=== PATIENT | female | born 1975 | race Hispanic/Latino ===

== ENCOUNTER 2017-11-20 21:27 | Inpatient (IN) | payer MEDICAID ==
[~2017-11-20] VITALS: Ht 162.6 cm; Wt 87.7 kg
[~2017-11-20 21:27] MED LIST: ASCO10007 PO; CEFU500T67 PO; CYAN10009 PO; DIPH1TAB24 PO; DULO20CA17 PO; EXEN5PEN2 SQ; FURO20TA4 PO; GABA-531 PO; INSU100I3 SQ; INSU3INS3 SQ; LISI-617 PO; OMEP40CA37 PO; ONDA4TAB7 PO; PRAV10TA39 PO
[2017-11-20 22:31] LABS: HEMATOCRIT 26.9 % (36-48); MEAN CORPUSCULAR HEMOGLOBIN 28.7 pg (27.0-33.0); MEAN CORPUSCULAR HGB CONC 32.6 g/dL (32.0-36.0); PLATELET COUNT (AUTO) 334 K/uL (130-400); RED BLOOD CELL COUNT(AUTO) 3.06 MIL/uL (4.00-5.50); RED CELL DISTRIBUTION WIDTH 14.6 % (11.0-15.5); WHITE BLOOD COUNT (AUTO) 12.8 K/uL (4.8-10.8)
[2017-11-20 22:41] LABS: ALANINE AMINOTRANSFERASE 31 U/L (12-78); ALBUMIN 2.6 g/dL (3.5-5.0); ASPARTATE AMINOTRANSFERASE 15 U/L (10-37); BILIRUBIN,TOTAL 0.3 mg/dL (0.2-1.0); CARBON DIOXIDE 22 mmol/L (21-32); CHLORIDE 101 mmol/L (101-111); CREATINE KINASE MB 2.8 ng/mL (0.5-3.6); CREATINE KINASE, TOTAL 313 U/L (21-232); CREATININE 1.4 mg/dL (0.5-1.5); GLOMERULAR FILTR. RATE CALC 44 mL/min (>60); MYOGLOBIN 181 ng/mL (10-92); POTASSIUM 5.5 mmol/L (3.5-5.1); SODIUM SERUM 134 mmol/L (136-145); TOTAL PROTEIN, SERUM 6.3 g/dL (6.0-8.3); TROPONIN I < 0.04 ng/mL (0.00-0.06); UREA NITROGEN, BLOOD 34 mg/dL (7-18)
[2017-11-20 22:44] LABS: GLUCOSE,RANDOM 430 mg/dL (70-105)
[2017-11-20 22:47] LABS: INR 0.93 (0.85-1.15); PARTIAL THROMBOPLASTIN TIME 24.7 SEC (26.3-35.5); PROTHROMBIN TIME 9.8 SEC (9.6-11.6)
[2017-11-20] MEDS ORDERED: FUROSEMIDE 10 MG/ML 4ML VIAL ONE (22:48)
[2017-11-20] MEDS ORDERED: INSULIN HUMULIN R 100 UNIT/ML 3ML ONE (22:49)
[2017-11-20] MEDS ORDERED: IPRATROPIUM/ALBUTEROL SULFATE 3 ML SOLUTION IH ONE (22:52)
[2017-11-20 22:58] LABS: APPEARANCE,URINE Clear (CLEAR); BILIRUBIN,URINE Negative (NEGATIVE); COLOR,URINE Yellow (YELLOW); GLUCOSE, URINE (UA) >=1000 mg/dL (NEGATIVE); KETONES,URINE Negative (NEGATIVE); LEUKOCYTE ESTERASE ,URINE Negative (NEGATIVE); NITRATE,URINE Negative (NEGATIVE); OCCULT BLOOD,URINE Moderate (NEGATIVE); PH,URINE 5.5 (5.0-8.0); PROTEIN,URINE >=1000 (NEGATIVE); UROBILINOGEN,URINE 0.2 mg/dL (0.2-1.0)
[2017-11-20] MEDS ORDERED: METHYLPREDNISOLONE SOD SUCC 125MG/2ML VIAL ONE (23:07)
[2017-11-20 23:25] LABS: BACTERIA,URINE None Seen /HPF (None Seen); MUCUS,URINE Rare LPF (None Seen); RBC,URINE 0-1 /HPF (0-1); SQUAMOUS EPITHELIAL CELL,UR Moderate /LPF (0-2); WBC,URINE 0-1 /HPF (0-1); YEAST,URINE BUDDING None Seen /HPF (None Seen)
[2017-11-20 23:47] LABS: BAND NEUTROPHILS % (MANUAL) 3 % (0-2); BASOPHILS % (MANUAL) 1 % (0-2); LYMPHOCYTES % (MANUAL) 1 % (22-44); MONOCYTES % (MANUAL) 1 % (2-9); SEGMENTED NEUTROPHILS % 94 % (40-70)
[2017-11-20 23:48] LABS: MAN.DIFF COMMENT-IMPRESSION MANUAL DIFFERENTIAL; PLATELET MORPHOLOGY COMMENT ADEQUATE
[2017-11-21] MEDS ORDERED: LEVOFLOXACIN 500 MG/D5W 100 ML 100 ML ONE (01:01)
[2017-11-21] MEDS ORDERED: IPRATROPIUM/ALBUTEROL SULFATE 3 ML SOLUTION IH ONE ×2 (01:21→09:13)
[2017-11-21 06:35] LABS: HEMATOCRIT 27.4 % (36-48); MEAN CORPUSCULAR HEMOGLOBIN 29.5 pg (27.0-33.0); MEAN CORPUSCULAR HGB CONC 33.3 g/dL (32.0-36.0); MEAN CORPUSCULAR VOLUME 88.6 fL (79-99); PLATELET COUNT (AUTO) 316 K/uL (130-400); RED BLOOD CELL COUNT(AUTO) 3.09 MIL/uL (4.00-5.50); RED CELL DISTRIBUTION WIDTH 14.8 % (11.0-15.5); WHITE BLOOD COUNT (AUTO) 12.5 K/uL (4.8-10.8)
[2017-11-21 06:39] LABS: HEMOGLOBIN A1C 10.7 % (4.0-6.0)
[2017-11-21 06:42] LABS: ALBUMIN 2.7 g/dL (3.5-5.0); BILIRUBIN,TOTAL 0.3 mg/dL (0.2-1.0); CREATININE 1.5 mg/dL (0.5-1.5); POTASSIUM 5.4 mmol/L (3.5-5.1); TOTAL PROTEIN, SERUM 6.5 g/dL (6.0-8.3)
[2017-11-21] MEDS ORDERED: INSULIN HUMULIN R 100 UNIT/ML 3ML ONE ×2 (06:57→12:22)
[2017-11-21 07:01] LABS: % IRON SATURATION 10.5 % (22-44)
[2017-11-21 07:13] LABS: LYMPHOCYTES % (MANUAL) 5 % (22-44); MAN.DIFF COMMENT-IMPRESSION MANUAL DIFFERENTIAL; PLATELET MORPHOLOGY COMMENT ADEQUATE; SEGMENTED NEUTROPHILS % 95 % (40-70)
[2017-11-21 07:23] LABS: B-TYPE NATRIURETIC PEPTIDE 933 pg/mL (0-100)
[2017-11-21] MEDS ORDERED: METHYLPREDNISOLONE SOD SUCC 40MG/ML 1ML ONE (07:54)
[2017-11-21] MEDS ORDERED: FUROSEMIDE 10 MG/ML 2ML VIAL ONE (07:55)
[2017-11-21 11:08] LABS: RETICULOCYTE % (AUTO) 1.08 % (0.42-2.23)
[2017-11-21] MEDS ORDERED: GUAIFENESIN-DM 200/20 MG 10 ML PO PRN (11:30)
[2017-11-21] MEDS ORDERED: ACETAMINOPHEN 325 MG TAB PO PRN ×2 (11:30)
[2017-11-21] MEDS: DOXYCYCLINE 100MG+NS 250ML 250 ML IV SCH ×2 (11:30→23:23)
[2017-11-21] MEDS ORDERED: HYDRALAZINE HCL 20 MG/ML VIAL IV PRN (11:30)
[2017-11-21] MEDS ORDERED: POTASSIUM CHLORIDE 20 MEQ ERTAB PO PRN ×2 (11:30→22:15)
[2017-11-21] MEDS ORDERED: ONDANSETRON HCL 4 MG/2 ML VIAL IV PRN (11:30)
[2017-11-21] MEDS ORDERED: MORPHINE SULFATE 4 MG/1ML SYG IV PRN (11:30)
[2017-11-21] MEDS ORDERED: POTASSIUM CHLORIDE 10% ELIXIR 20 MEQ/15 ML UDCUP PO PRN ×2 (11:30→22:15)
[2017-11-21] MEDS ORDERED: MORPHINE SULFATE 2 MG/ML 1ML SYG IV PRN (11:30)
[2017-11-21] MEDS ORDERED: NITROGLYCERIN 0.4 MG SL TAB SL PRN ×2 (11:30→22:15)
[2017-11-21] MEDS ORDERED: LACTULOSE 20 GM/30 ML UDCUP PO PRN ×2 (11:30→22:15)
[2017-11-21] MEDS ORDERED: ACETAMINOPHEN-CODEINE 300/30MG TAB PO PRN ×2 (11:30)
[2017-11-21] MEDS: INSULIN HUMULIN R 100 UNIT/ML 3ML SQ SCH ×3 (11:30→20:07)
[2017-11-21] MEDS ORDERED: POTASSIUM CHLORIDE 20MEQ/100ML 100 ML IV PRN ×2 (11:30→22:15)
[2017-11-21] MEDS ORDERED: LIDOCAINE HCL-MPF 1% 2ML VIAL IVP PRN (11:30)
[2017-11-21] MEDS: METHYLPREDNISOLONE SOD SUCC 125MG/2ML VIAL IV SCH ×2 (11:30→20:06)
[2017-11-21] MEDS ORDERED: MAG HYDROX/AL HYDROX/SIMETH ES 30 ML SUSP UDCUP PO PRN (11:30)
[2017-11-21 15:00] VITALS: BP 136/82
[2017-11-21] MEDS ORDERED: COMPOUND IV MISC 1 EACH IVSOLN MISC PRN (15:00)
[2017-11-21] MEDS ORDERED: INSULIN GLARGINE 100 UNITS/ML 10 ML VIAL SQ SCH ×2 (17:00→21:00)
[2017-11-21] MEDS ORDERED: FURO20TA4 PO (17:06)
[2017-11-21] MEDS ORDERED: FURO40TA5 PO (17:06)
[2017-11-21] MEDS: IPRATROPIUM/ALBUTEROL SULFATE 3 ML SOLUTION IH SCH ×2 (19:30→22:23)
[2017-11-21 20:00] VITALS: BP 120/77
[2017-11-21] MEDS: FUROSEMIDE 10 MG/ML 2ML VIAL IV SCH (20:06)
[2017-11-21] MEDS: GABAPENTIN 300 MG CAPSULE PO SCH (20:07)
[2017-11-21] MEDS ORDERED: INSULIN GLARGINE HUM REC ANLOG 20 UNIT SQ SCH (21:00)
[2017-11-21] MEDS ORDERED: [UNRECOGNIZED DRUG - OTHER] SQ SCH (21:00)
[2017-11-21] MEDS ORDERED: FAMOTIDINE/PF 20 MG/2 ML VIAL IV SCH (21:00)
[2017-11-21] MEDS ORDERED: DiphenhydrAMINE HCL 50 MG/ML VIAL IVP PRN (22:15)
[2017-11-21] MEDS ORDERED: CLONIDINE HCL 0.1 MG TABLET PO PRN (22:15)
[2017-11-21] MEDS ORDERED: LIDOCAINE HCL-MPF 1% 2ML VIAL IJ PRN (22:15)
[2017-11-21] MEDS ORDERED: ONDANSETRON HCL 4 MG/2 ML VIAL IVP PRN (22:15)
[2017-11-21] MEDS ORDERED: GUAIFENESIN SUGAR-FREE 100 MG/5 ML UDCUP PO PRN (22:15)
[2017-11-21] MEDS ORDERED: GLUCAGON 1MG KIT 1 MG ML IM PRN (22:15)
[2017-11-21] MEDS ORDERED: DEXTROSE 50%-WATER 50 ML DISP.SYRIN IV PRN (22:15)
[2017-11-21 23:36] VITALS: BP 138/79
[2017-11-22] MEDS: LEVOFLOXACIN 500 MG/D5W 100 ML 100 ML IV SCH (01:03)
[2017-11-22] MEDS: IPRATROPIUM/ALBUTEROL SULFATE 3 ML SOLUTION IH SCH ×6 (01:57→21:45)
[2017-11-22] MEDS: METHYLPREDNISOLONE SOD SUCC 125MG/2ML VIAL IV SCH ×3 (03:23→19:33)
[2017-11-22 04:00] VITALS: BP 154/90
[2017-11-22 04:30] LABS: HEMATOCRIT 24.5 % (36-48); MEAN CORPUSCULAR HEMOGLOBIN 28.4 pg (27.0-33.0); MEAN CORPUSCULAR HGB CONC 32.4 g/dL (32.0-36.0); MEAN CORPUSCULAR VOLUME 87.7 fL (79-99); PLATELET COUNT (AUTO) 311 K/uL (130-400); RED BLOOD CELL COUNT(AUTO) 2.79 MIL/uL (4.00-5.50); RED CELL DISTRIBUTION WIDTH 14.4 % (11.0-15.5); WHITE BLOOD COUNT (AUTO) 11.2 K/uL (4.8-10.8)
[2017-11-22 04:41] LABS: CREATININE 1.9 mg/dL (0.5-1.5); PHOSPHORUS 5.2 mg/dL (2.5-4.9); POTASSIUM 5.3 mmol/L (3.5-5.1); URIC ACID 7.7 mg/dL (2.6-7.2)
[2017-11-22 04:48] LABS: B-TYPE NATRIURETIC PEPTIDE 290 pg/mL (0-100)
[2017-11-22] MEDS: INSULIN HUMULIN R 100 UNIT/ML 3ML SQ SCH ×4 (06:15→20:13)
[2017-11-22] MEDS ORDERED: INSULIN R PO SSI SQ SCH (07:30)
[2017-11-22 08:07] VITALS: BP 150/91
[2017-11-22] MEDS ORDERED: FAMOTIDINE 20MG TAB 20 MG TAB PO SCH (09:00)
[2017-11-22] MEDS: FAMOTIDINE 20MG TAB 20 MG TAB PO SCH ×2 (09:29→20:08)
[2017-11-22] MEDS: FUROSEMIDE 10 MG/ML 2ML VIAL IV SCH ×2 (09:30→20:08)
[2017-11-22] MEDS: FOLIC ACID/VITAMIN B COMP W-C 1 MG CAPSULE PO SCH (09:30)
[2017-11-22] MEDS: ENOXAPARIN SODIUM 40 MG/0.4 ML SYRINGE SQ SCH (09:31)
[2017-11-22 11:20] VITALS: BP 139/82
[2017-11-22] MEDS: DOXYCYCLINE 100MG+NS 250ML 250 ML IV SCH ×2 (12:15→23:32)
[2017-11-22] MEDS: IRON SUCROSE COMPLEX 100 MG in SODIUM CHLORIDE 0.9% 50 ML IV SCH (13:59)
[2017-11-22] MEDS ORDERED: SODIUM POLYSTYRENE SULFONATE 15 GM/60 ML ML PO SCH (14:00)
[2017-11-22 16:08] VITALS: BP 145/93
[2017-11-22 20:00] VITALS: BP 137/77
[2017-11-22] MEDS: GABAPENTIN 300 MG CAPSULE PO SCH (20:08)
[2017-11-22] MEDS: INSULIN GLARGINE 100 UNITS/ML 10 ML VIAL SQ SCH (20:12)
[2017-11-23] VITALS: BP 138/82
[2017-11-23] MEDS: LEVOFLOXACIN 500 MG/D5W 100 ML 100 ML IV SCH (01:21)
[2017-11-23] MEDS: IPRATROPIUM/ALBUTEROL SULFATE 3 ML SOLUTION IH SCH ×6 (01:57→22:28)
[2017-11-23] MEDS: METHYLPREDNISOLONE SOD SUCC 125MG/2ML VIAL IV SCH ×3 (03:26→20:32)
[2017-11-23 04:00] VITALS: BP 132/75
[2017-11-23 05:41] LABS: HEMATOCRIT 25.5 % (36-48); MEAN CORPUSCULAR HEMOGLOBIN 29.7 pg (27.0-33.0); MEAN CORPUSCULAR HGB CONC 33.8 g/dL (32.0-36.0); MEAN CORPUSCULAR VOLUME 87.9 fL (79-99); PLATELET COUNT (AUTO) 281 K/uL (130-400); RED CELL DISTRIBUTION WIDTH 14.7 % (11.0-15.5); WHITE BLOOD COUNT (AUTO) 10.8 K/uL (4.8-10.8)
[2017-11-23 05:55] LABS: CREATININE 1.9 mg/dL (0.5-1.5); POTASSIUM 4.2 mmol/L (3.5-5.1)
[2017-11-23] MEDS: INSULIN HUMULIN R 100 UNIT/ML 3ML SQ SCH ×4 (06:41→20:43)
[2017-11-23 07:00] VITALS: BP 145/80
[2017-11-23] MEDS: FAMOTIDINE 20MG TAB 20 MG TAB PO SCH ×2 (09:25→20:32)
[2017-11-23] MEDS: FOLIC ACID/VITAMIN B COMP W-C 1 MG CAPSULE PO SCH (09:25)
[2017-11-23] MEDS: FUROSEMIDE 10 MG/ML 2ML VIAL IV SCH ×2 (09:25→20:32)
[2017-11-23] MEDS: ENOXAPARIN SODIUM 40 MG/0.4 ML SYRINGE SQ SCH (09:26)
[2017-11-23 11:00] VITALS: BP 141/89
[2017-11-23] MEDS: IRON SUCROSE COMPLEX 100 MG in SODIUM CHLORIDE 0.9% 50 ML IV SCH (12:08)
[2017-11-23] MEDS: DOXYCYCLINE 100MG+NS 250ML 250 ML IV SCH (12:08)
[2017-11-23 16:00] VITALS: BP 148/96
[2017-11-23 20:00] VITALS: BP 159/92
[2017-11-23] MEDS: GABAPENTIN 300 MG CAPSULE PO SCH (20:32)
[2017-11-23] MEDS: INSULIN GLARGINE 100 UNITS/ML 10 ML VIAL SQ SCH (20:45)
[2017-11-24] VITALS: BP 144/85
[2017-11-24] MEDS: DOXYCYCLINE 100MG+NS 250ML 250 ML IV SCH ×2 (01:04→12:26)
[2017-11-24] MEDS: IPRATROPIUM/ALBUTEROL SULFATE 3 ML SOLUTION IH SCH ×6 (01:42→22:35)
[2017-11-24] MEDS: LEVOFLOXACIN 500 MG/D5W 100 ML 100 ML IV SCH (02:17)
[2017-11-24] MEDS: METHYLPREDNISOLONE SOD SUCC 125MG/2ML VIAL IV SCH ×3 (03:43→20:35)
[2017-11-24 04:00] VITALS: BP 143/90
[2017-11-24 04:31] LABS: HEMATOCRIT 25.9 % (36-48); MEAN CORPUSCULAR HEMOGLOBIN 28.7 pg (27.0-33.0); MEAN CORPUSCULAR HGB CONC 33.2 g/dL (32.0-36.0); MEAN CORPUSCULAR VOLUME 86.6 fL (79-99); PLATELET COUNT (AUTO) 316 K/uL (130-400); RED BLOOD CELL COUNT(AUTO) 2.99 MIL/uL (4.00-5.50); RED CELL DISTRIBUTION WIDTH 14.6 % (11.0-15.5); WHITE BLOOD COUNT (AUTO) 9.4 K/uL (4.8-10.8)
[2017-11-24 05:14] LABS: CREATININE 1.7 mg/dL (0.5-1.5); POTASSIUM 3.9 mmol/L (3.5-5.1)
[2017-11-24] MEDS: INSULIN HUMULIN R 100 UNIT/ML 3ML SQ SCH ×4 (06:18→20:50)
[2017-11-24 07:00] VITALS: BP 155/91
[2017-11-24] MEDS: ENOXAPARIN SODIUM 40 MG/0.4 ML SYRINGE SQ SCH (09:57)
[2017-11-24] MEDS: FUROSEMIDE 10 MG/ML 2ML VIAL IV SCH ×2 (09:57→20:35)
[2017-11-24] MEDS: FOLIC ACID/VITAMIN B COMP W-C 1 MG CAPSULE PO SCH (09:57)
[2017-11-24] MEDS: FAMOTIDINE 20MG TAB 20 MG TAB PO SCH ×2 (09:57→20:35)
[2017-11-24 11:00] VITALS: BP 159/97
[2017-11-24] MEDS: IRON SUCROSE COMPLEX 100 MG in SODIUM CHLORIDE 0.9% 50 ML IV SCH (12:27)
[2017-11-24 16:00] VITALS: BP 148/93
[2017-11-24 19:45] VITALS: BP 152/82
[2017-11-24] MEDS: GABAPENTIN 300 MG CAPSULE PO SCH (20:35)
[2017-11-24] MEDS: INSULIN GLARGINE 100 UNITS/ML 10 ML VIAL SQ SCH (20:51)
[2017-11-25] VITALS (7 sets, daily range): BP systolic 136–149; BP diastolic 79–94
[2017-11-25] MEDS: DOXYCYCLINE 100MG+NS 250ML 250 ML IV SCH ×2 (01:21→14:07)
[2017-11-25] MEDS: IPRATROPIUM/ALBUTEROL SULFATE 3 ML SOLUTION IH SCH ×6 (02:39→22:38)
[2017-11-25] MEDS: METHYLPREDNISOLONE SOD SUCC 125MG/2ML VIAL IV SCH ×3 (03:30→21:41)
[2017-11-25] MEDS: LEVOFLOXACIN 500 MG/D5W 100 ML 100 ML IV SCH (03:31)
[2017-11-25 05:59] LABS: HEMATOCRIT 27.6 % (36-48); MEAN CORPUSCULAR HEMOGLOBIN 29.7 pg (27.0-33.0); MEAN CORPUSCULAR HGB CONC 34.2 g/dL (32.0-36.0); MEAN CORPUSCULAR VOLUME 87.1 fL (79-99); PLATELET COUNT (AUTO) 319 K/uL (130-400); RED BLOOD CELL COUNT(AUTO) 3.17 MIL/uL (4.00-5.50); RED CELL DISTRIBUTION WIDTH 14.4 % (11.0-15.5); WHITE BLOOD COUNT (AUTO) 9.8 K/uL (4.8-10.8)
[2017-11-25 06:09] LABS: CREATININE 1.6 mg/dL (0.5-1.5); POTASSIUM 3.8 mmol/L (3.5-5.1)
[2017-11-25] MEDS: INSULIN HUMULIN R 100 UNIT/ML 3ML SQ SCH ×4 (06:47→21:43)
[2017-11-25] MEDS: ENOXAPARIN SODIUM 40 MG/0.4 ML SYRINGE SQ SCH (08:14)
[2017-11-25] MEDS: FOLIC ACID/VITAMIN B COMP W-C 1 MG CAPSULE PO SCH (08:14)
[2017-11-25] MEDS: FAMOTIDINE 20MG TAB 20 MG TAB PO SCH ×2 (08:14→21:42)
[2017-11-25] MEDS: FUROSEMIDE 10 MG/ML 2ML VIAL IV SCH (08:14)
[2017-11-25] MEDS: IRON SUCROSE COMPLEX 100 MG in SODIUM CHLORIDE 0.9% 50 ML IV SCH (14:07)
[2017-11-25] MEDS ORDERED: INSULIN GLARGINE 100 UNITS/ML 10 ML VIAL SQ ONE (21:33)
[2017-11-25] MEDS: GABAPENTIN 300 MG CAPSULE PO SCH (21:42)
[2017-11-25] MEDS: INSULIN GLARGINE 100 UNITS/ML 10 ML VIAL SQ SCH (21:44)
[2017-11-25] MEDS ORDERED: FUROSEMIDE 20 MG TABLET PO SCH (22:00)
[2017-11-25] MEDS ORDERED: EPOETIN ALFA 10,000 UNIT/ML VIAL SQ SCH (22:00)
[2017-11-26] MEDS: DOXYCYCLINE 100MG+NS 250ML 250 ML IV SCH (01:37)
[2017-11-26] MEDS: IPRATROPIUM/ALBUTEROL SULFATE 3 ML SOLUTION IH SCH ×3 (02:00→10:05)
[2017-11-26 03:35] VITALS: BP 146/89
[2017-11-26] MEDS: LEVOFLOXACIN 500 MG/D5W 100 ML 100 ML IV SCH (03:45)
[2017-11-26] MEDS: METHYLPREDNISOLONE SOD SUCC 125MG/2ML VIAL IV SCH (03:45)
[2017-11-26 05:58] LABS: HEMATOCRIT 27.8 % (36-48); MEAN CORPUSCULAR HEMOGLOBIN 28.9 pg (27.0-33.0); MEAN CORPUSCULAR HGB CONC 33.3 g/dL (32.0-36.0); MEAN CORPUSCULAR VOLUME 86.8 fL (79-99); PLATELET COUNT (AUTO) 325 K/uL (130-400); RED CELL DISTRIBUTION WIDTH 14.4 % (11.0-15.5); WHITE BLOOD COUNT (AUTO) 8.8 K/uL (4.8-10.8)
[2017-11-26 06:06] LABS: CREATININE 1.5 mg/dL (0.5-1.5); POTASSIUM 3.9 mmol/L (3.5-5.1)
[2017-11-26] MEDS: INSULIN HUMULIN R 100 UNIT/ML 3ML SQ SCH ×2 (06:30→11:25)
[2017-11-26 07:45] VITALS: BP 138/99
[2017-11-26] MEDS ORDERED: FUROSEMIDE 40 MG TABLET PO SCH (08:00)
[2017-11-26] MEDS: ENOXAPARIN SODIUM 40 MG/0.4 ML SYRINGE SQ SCH (09:00)
[2017-11-26] MEDS ORDERED: PRED20TA3 PO (10:39)
[2017-11-26] MEDS ORDERED: DOXY100T2 PO (10:39)
[2017-11-26 10:55] VITALS: BP 151/95
[2017-11-26] MEDS: FOLIC ACID/VITAMIN B COMP W-C 1 MG CAPSULE PO SCH (11:09)
[2017-11-26] MEDS: FAMOTIDINE 20MG TAB 20 MG TAB PO SCH (11:09)
[2017-12-01] MEDS ORDERED: EPOETIN ALFA 10,000 UNIT/ML VIAL SQ SCH (09:00)
== END 2017-11-26 12:00 | disposition home or self-care (01) | DRG 469 ==
LOC: EDH 21:27 → OBSVTOIN 21:28 → EDHIP 21:28 → 3DH 11-21 15:13
PROVIDERS: ADMIT Family Medicine; ATTEND Family Medicine
DX: N17.9 Acute kidney failure, unspecified (principal); I50.33 Acute on chronic diastolic (congestive) heart failure; E11.21 Type 2 diabetes mellitus with diabetic nephropathy; J45.902 Unspecified asthma with status asthmaticus; E11.65 Type 2 diabetes mellitus with hyperglycemia; E87.5 Hyperkalemia; I13.0 Hypertensive heart and chronic kidney disease with heart failure and stage 1 through stage 4 chronic kidney disease, or unspecified chronic kidney disease; E78.5 Hyperlipidemia, unspecified; N18.9 Chronic kidney disease, unspecified; E03.9 Hypothyroidism, unspecified; D64.9 Anemia, unspecified; R80.9 Proteinuria, unspecified; R79.89 Other specified abnormal findings of blood chemistry; D72.825 Bandemia; E11.22 Type 2 diabetes mellitus with diabetic chronic kidney disease; Z90.710 Acquired absence of both cervix and uterus; Z98.891 History of uterine scar from previous surgery
CPT/HCPCS: 36415; 71045; 76770; 80048; 80053; 81001; 82550; 82553; 82607; 82728; 82746; 82948; 83036; 83605; 83874; 83880; 84100; 84484; 84550; 85025; 85027; 85610; 85730; 86850; 86900; 86901; 87088; 87804; 93005; 93970; 94640; 94664; 99291; J0885; J1650; J1756; J1815; J1940; J1956; J2920; J2930; J3490

== ENCOUNTER → 2017-12-20 | Outpatient (CLI) | payer MEDICAID ==
[~2017-12-20] MED LIST changes: +ATOR10 PO; -CEFU500T67 PO; +DICY10CA13 PO; +DOXY100T2 PO; +FURO40TA5 PO; +LEVO500T2 PO; +LOSA50TA37 PO; +METO-391 PO; +METO2.5T2 PO; +PRED20TA3 PO; +SERT50TA12 PO; +TRAM50TA4 PO
== END | disposition home or self-care (01) ==
LOC: RAH 13:03
PROVIDERS: ATTEND Internal Medicine
DX: S09.90XA Unspecified injury of head, initial encounter (principal); W19.XXXA Unspecified fall, initial encounter; Y93.89 Activity, other specified; Y92.89 Other specified places as the place of occurrence of the external cause; Y99.8 Other external cause status
CPT/HCPCS: 70450

== ENCOUNTER 2018-01-13 15:15 | Emergency (ER) | payer MEDICAID ==
[~2018-01-13 15:15] MED LIST changes: -ATOR10 PO; -DICY10CA13 PO; -LEVO500T2 PO; -LOSA50TA37 PO; -METO-391 PO; -METO2.5T2 PO; -SERT50TA12 PO; -TRAM50TA4 PO
[2018-01-13] MEDS ORDERED: ONDANSETRON HCL 4 MG/2 ML VIAL ONE (15:44)
[2018-01-13] MEDS ORDERED: SODIUM CHLORIDE 0.9% 1000ML 2,000 ML IV ONE (15:44)
[2018-01-13 15:47] LABS: BASOPHILS % (AUTO) 0.8 % (0.0-5.0); EOSINOPHILS % (AUTO) 0.2 % (0.0-8.0); HEMATOCRIT 27.2 % (36-48); LYMPHOCYTES % (AUTO) 11.4 % (21.0-51.0); MEAN CORPUSCULAR HEMOGLOBIN 29.4 pg (27.0-33.0); MEAN CORPUSCULAR HGB CONC 34.2 g/dL (32.0-36.0); MEAN CORPUSCULAR VOLUME 86.2 fL (79-99); NEUTROPHILS % (AUTO) 81.6 % (40.0-77.0); PLATELET COUNT (AUTO) 258 K/uL (130-400); RED BLOOD CELL COUNT(AUTO) 3.15 MIL/uL (4.00-5.50); RED CELL DISTRIBUTION WIDTH 14.6 % (11.0-15.5); WHITE BLOOD COUNT (AUTO) 8.1 K/uL (4.8-10.8)
[2018-01-13 15:59] LABS: CARBON DIOXIDE 28 mmol/L (21-32); CHLORIDE 92 mmol/L (101-111); CREATININE 1.8 mg/dL (0.5-1.5); GLOMERULAR FILTR. RATE CALC 33 mL/min (>60); GLUCOSE,RANDOM 329 mg/dL (70-105); SODIUM SERUM 126 mmol/L (136-145); UREA NITROGEN, BLOOD 30 mg/dL (7-18)
[2018-01-13 16:00] LABS: INR 0.96 (0.85-1.15); PARTIAL THROMBOPLASTIN TIME 25.9 SEC (26.3-35.5); PROTHROMBIN TIME 10.1 SEC (9.6-11.6)
[2018-01-13] MEDS ORDERED: IPRATROPIUM/ALBUTEROL SULFATE 3 ML SOLUTION IH ONE (16:07)
[2018-01-13 16:12] LABS: ALANINE AMINOTRANSFERASE 26 U/L (12-78); ALBUMIN 2.9 g/dL (3.5-5.0); ASPARTATE AMINOTRANSFERASE 22 U/L (10-37); BILIRUBIN,TOTAL 0.4 mg/dL (0.2-1.0); CREATINE KINASE MB 0.6 ng/mL (0.5-3.6); CREATINE KINASE, TOTAL 274 U/L (21-232); MYOGLOBIN 196 ng/mL (10-92); TOTAL PROTEIN, SERUM 6.6 g/dL (6.0-8.3); TROPONIN I < 0.04 ng/mL (0.00-0.06)
[2018-01-13 16:21] LABS: RAPID GROUP A STREP NEGATIVE (NEGATIVE)
[2018-01-13] MEDS ORDERED: ACETAMINOPHEN 325 MG TAB ONE (16:47)
[2018-01-13 17:21] LABS: APPEARANCE,URINE Clear (CLEAR); BILIRUBIN,URINE Negative (NEGATIVE); COLOR,URINE Yellow (YELLOW); GLUCOSE, URINE (UA) 500 mg/dL (NEGATIVE); KETONES,URINE Negative (NEGATIVE); LEUKOCYTE ESTERASE ,URINE Negative (NEGATIVE); NITRATE,URINE Negative (NEGATIVE); OCCULT BLOOD,URINE Moderate (NEGATIVE); PH,URINE 5.5 (5.0-8.0); PROTEIN,URINE 300 (NEGATIVE); UROBILINOGEN,URINE 0.2 mg/dL (0.2-1.0)
[2018-01-13 17:30] LABS: BACTERIA,URINE Few /HPF (None Seen); RBC,URINE 0-1 /HPF (0-1); WBC,URINE None Seen /HPF (0-1)
[2018-01-13] MEDS ORDERED: CEFTRIAXONE SODIUM 1 GM ONE (18:30)
== END 2018-01-13 19:14 | disposition home or self-care (01) ==
LOC: EDH 15:15
DX: J18.9 Pneumonia, unspecified organism (principal); R50.81 Fever presenting with conditions classified elsewhere; J45.909 Unspecified asthma, uncomplicated; E11.9 Type 2 diabetes mellitus without complications; E78.5 Hyperlipidemia, unspecified; I10 Essential (primary) hypertension; Z79.4 Long term (current) use of insulin; Z88.8 Allergy status to other drugs, medicaments and biological substances
CPT/HCPCS: 36415; 71045; 80053; 81001; 82550; 82553; 83605; 83690; 83874; 84484; 85025; 85610; 85730; 87040 ×2; 87088; 87186; 87804 ×2; 87880; 93005; 94640; 96361; 96374; 96375; 99285; J0696; J2405; J7030

== ENCOUNTER 2018-01-18 00:21 | Inpatient (IN) | payer MEDICAID ==
[~2018-01-18] VITALS: Ht 162.6 cm; Wt 83.8 kg
[2018-01-18 00:57] LABS: BASOPHILS % (AUTO) 0.8 % (0.0-5.0); EOSINOPHILS % (AUTO) 1.7 % (0.0-8.0); HEMATOCRIT 27.3 % (36-48); LYMPHOCYTES % (AUTO) 23.5 % (21.0-51.0); MEAN CORPUSCULAR HEMOGLOBIN 28.6 pg (27.0-33.0); MEAN CORPUSCULAR HGB CONC 33.6 g/dL (32.0-36.0); MEAN CORPUSCULAR VOLUME 85.1 fL (79-99); MONOCYTES % (AUTO) 5.7 % (3.0-13.0); NEUTROPHILS % (AUTO) 68.3 % (40.0-77.0); PLATELET COUNT (AUTO) 354 K/uL (130-400); RED BLOOD CELL COUNT(AUTO) 3.21 MIL/uL (4.00-5.50); RED CELL DISTRIBUTION WIDTH 14.6 % (11.0-15.5); WHITE BLOOD COUNT (AUTO) 8.1 K/uL (4.8-10.8)
[2018-01-18] MEDS ORDERED: FAMOTIDINE/PF 20 MG/2 ML VIAL IV ONE (01:02)
[2018-01-18] MEDS ORDERED: SODIUM CHLORIDE 0.9% 1000ML 1,000 ML IV ONE ×2 (01:02→06:01)
[2018-01-18] MEDS ORDERED: ONDANSETRON HCL 4 MG/2 ML VIAL ONE (01:02)
[2018-01-18 01:07] LABS: APPEARANCE,URINE Clear (CLEAR); BILIRUBIN,URINE Negative (NEGATIVE); COLOR,URINE Yellow (YELLOW); GLUCOSE, URINE (UA) 250 mg/dL (NEGATIVE); KETONES,URINE Negative (NEGATIVE); LEUKOCYTE ESTERASE ,URINE Negative (NEGATIVE); NITRATE,URINE Negative (NEGATIVE); OCCULT BLOOD,URINE Moderate (NEGATIVE); PH,URINE 5.5 (5.0-8.0); PROTEIN,URINE 300 (NEGATIVE); UROBILINOGEN,URINE 0.2 mg/dL (0.2-1.0)
[2018-01-18 01:13] LABS: BACTERIA,URINE None Seen /HPF (None Seen); RBC,URINE 0-1 /HPF (0-1); WBC,URINE 0-1 /HPF (0-1); YEAST,URINE BUDDING None Seen /HPF (None Seen)
[2018-01-18 01:14] LABS: ALANINE AMINOTRANSFERASE 35 U/L (12-78); ALBUMIN 2.7 g/dL (3.5-5.0); AMYLASE 31 U/L (25-115); ASPARTATE AMINOTRANSFERASE 30 U/L (10-37); BILIRUBIN,TOTAL 0.3 mg/dL (0.2-1.0); CARBON DIOXIDE 27 mmol/L (21-32); GLOMERULAR FILTR. RATE CALC 29 mL/min (>60); GLUCOSE,RANDOM 102 mg/dL (70-105); POTASSIUM 4.3 mmol/L (3.5-5.1); SODIUM SERUM 123 mmol/L (136-145); SQUAMOUS EPITHELIAL CELL,UR Rare /LPF (0-2); TOTAL PROTEIN, SERUM 6.6 g/dL (6.0-8.3); UREA NITROGEN, BLOOD 23 mg/dL (7-18)
[2018-01-18 01:17] LABS: LIPASE < 50 U/L (114-286)
[2018-01-18 01:18] LABS: CHLORIDE 88 mmol/L (101-111)
[2018-01-18 02:49] LABS: RAPID GROUP A STREP NEGATIVE (NEGATIVE)
[2018-01-18] MEDS ORDERED: DEXTROSE 50%-WATER 50 ML DISP.SYRIN IV PRN (05:15)
[2018-01-18] MEDS ORDERED: CLONIDINE HCL 0.1 MG TABLET PO PRN ×2 (05:15→09:15)
[2018-01-18] MEDS ORDERED: POTASSIUM CHLORIDE 20MEQ/100ML 100 ML IV PRN (05:15)
[2018-01-18] MEDS ORDERED: LIDOCAINE HCL-MPF 1% 2ML VIAL IJ PRN (05:15)
[2018-01-18] MEDS ORDERED: GLUCAGON 1MG KIT 1 MG ML IM PRN (05:15)
[2018-01-18] MEDS ORDERED: POTASSIUM CHLORIDE 20 MEQ ERTAB PO PRN (05:15)
[2018-01-18] MEDS ORDERED: ONDANSETRON HCL 4 MG/2 ML VIAL IVP PRN (05:15)
[2018-01-18] MEDS ORDERED: POTASSIUM CHLORIDE 10% ELIXIR 20 MEQ/15 ML UDCUP PO PRN (05:15)
[2018-01-18] MEDS ORDERED: ACETAMINOPHEN 325 MG TAB PO PRN ×3 (05:15→09:15)
[2018-01-18] MEDS ORDERED: ALBUTEROL SULFATE 0.083% 2.5 MG/3 ML INH IH ONE (06:01)
[2018-01-18 06:45] LABS: BASOPHILS % (AUTO) 0.5 % (0.0-5.0); EOSINOPHILS % (AUTO) 3.3 % (0.0-8.0); HEMATOCRIT 25.2 % (36-48); LYMPHOCYTES % (AUTO) 28.5 % (21.0-51.0); MEAN CORPUSCULAR HGB CONC 34.5 g/dL (32.0-36.0); MONOCYTES % (AUTO) 6.4 % (3.0-13.0); NEUTROPHILS % (AUTO) 61.3 % (40.0-77.0); PLATELET COUNT (AUTO) 208 K/uL (130-400); RED CELL DISTRIBUTION WIDTH 14.6 % (11.0-15.5); WHITE BLOOD COUNT (AUTO) 7.2 K/uL (4.8-10.8)
[2018-01-18 06:50] LABS: CREATININE 1.9 mg/dL (0.5-1.5); POTASSIUM 4.6 mmol/L (3.5-5.1)
[2018-01-18] MEDS: INSULIN R PO SS1 SQ SCH ×4 (07:30→21:00)
[2018-01-18 08:52] VITALS: BP 108/82
[2018-01-18] MEDS ORDERED: METO-391 PO (08:52)
[2018-01-18] MEDS ORDERED: TRAM50TA4 PO (08:52)
[2018-01-18] MEDS ORDERED: LOSA50TA37 PO (08:52)
[2018-01-18] MEDS ORDERED: SERT50TA12 PO (08:52)
[2018-01-18] MEDS ORDERED: LEVO500T2 PO (08:52)
[2018-01-18] MEDS ORDERED: DICY10CA13 PO (08:52)
[2018-01-18] MEDS ORDERED: METO2.5T2 PO (08:52)
[2018-01-18] MEDS ORDERED: ATOR10 PO (08:52)
[2018-01-18] MEDS ORDERED: ACETAMINOPHEN EXTRA STRENGTH 500 MG TABLET PO PRN (09:15)
[2018-01-18] MEDS ORDERED: LACTULOSE 20 GM/30 ML UDCUP PO PRN (09:15)
[2018-01-18] MEDS ORDERED: LEVOFLOXACIN 500 MG/D5W 100 ML 100 ML IV SCH (09:15)
[2018-01-18] MEDS ORDERED: LEVOFLOXACIN 500 MG/D5W 100 ML 100 ML ONE (09:49)
[2018-01-18] MEDS ORDERED: FAMOTIDINE 20MG TAB 20 MG TAB ONE (09:49)
[2018-01-18] MEDS: FAMOTIDINE 20MG TAB 20 MG TAB PO SCH ×2 (09:54→21:45)
[2018-01-18] MEDS: SODIUM CHLORIDE 0.9% 1000ML 1,000 ML IV SCH ×2 (09:54→16:37)
[2018-01-18] MEDS ORDERED: IPRATROPIUM/ALBUTEROL SULFATE 3 ML SOLUTION IH ONE (10:39)
[2018-01-18] MEDS: IPRATROPIUM/ALBUTEROL SULFATE 3 ML SOLUTION IH SCH ×2 (10:44→18:29)
[2018-01-18] MEDS ORDERED: LIDOCAINE HCL 2% VISCOUS 30 ML, MAG HYDROX/AL HYDROX/SIMETH 30 ML, BELLADONNA-PHENOBARB... PO PRN ×3 (10:45)
[2018-01-18] MEDS ORDERED: HYDRALAZINE HCL 20 MG/ML VIAL IV PRN (10:45)
[2018-01-18 12:08] VITALS: BP 111/85
[2018-01-18] MEDS ORDERED: MAG HYDROX PO PRN ×3 (13:17)
[2018-01-18] MEDS ORDERED: AL HYDROX PO PRN ×3 (13:17)
[2018-01-18] MEDS ORDERED: LIDOCAINE HCL 2% PO PRN ×3 (13:17)
[2018-01-18] MEDS ORDERED: [UNRECOGNIZED DRUG - OTHER] PO PRN ×3 (13:17)
[2018-01-18] MEDS ORDERED: VISCOUS PO PRN ×3 (13:17)
[2018-01-18] MEDS ORDERED: SIMETH PO PRN ×3 (13:17)
[2018-01-18] MEDS: METOCLOPRAMIDE 10 MG/2 ML VIAL IVP SCH ×2 (14:00→22:00)
[2018-01-18 16:30] VITALS: BP 142/85
[2018-01-18] MEDS ORDERED: METOLAZONE 2.5 MG TABLET PO SCH (19:00)
[2018-01-18 20:41] VITALS: BP 141/77
[2018-01-18] MEDS ORDERED: FUROSEMIDE 20 MG TABLET PO SCH (21:00)
[2018-01-18] MEDS: GABAPENTIN 300 MG CAPSULE PO SCH (21:44)
[2018-01-18] MEDS: SERTRALINE HCL 50 MG TABLET PO SCH (21:44)
[2018-01-18] MEDS: TRAMADOL HCL 50 MG TABLET PO SCH (21:45)
[2018-01-18] MEDS: METHYLPREDNISOLONE SOD SUCC 125MG/2ML VIAL IVP SCH (21:48)
[2018-01-18] MEDS: INSULIN GLARGINE 100 UNITS/ML 10 ML VIAL SQ SCH (21:54)
[2018-01-18] MEDS: DICYCLOMINE HCL 20 MG TAB PO SCH (22:36)
[2018-01-18] MEDS: ONDANSETRON ODT 4 MG TAB PO SCH (23:55)
[2018-01-19] VITALS (7 sets, daily range): BP systolic 111–149; BP diastolic 77–87
[2018-01-19] MEDS: IPRATROPIUM/ALBUTEROL SULFATE 3 ML SOLUTION IH SCH ×5 (00:12→23:42)
[2018-01-19 05:46] LABS: HEMATOCRIT 25.7 % (36-48); MEAN CORPUSCULAR HEMOGLOBIN 30.2 pg (27.0-33.0); PLATELET COUNT (AUTO) 379 K/uL (130-400); RED BLOOD CELL COUNT(AUTO) 3.06 MIL/uL (4.00-5.50); RED CELL DISTRIBUTION WIDTH 14.5 % (11.0-15.5); WHITE BLOOD COUNT (AUTO) 5.5 K/uL (4.8-10.8)
[2018-01-19 05:51] LABS: CREATININE 1.7 mg/dL (0.5-1.5)
[2018-01-19] MEDS: ONDANSETRON ODT 4 MG TAB PO SCH ×3 (05:51→18:00)
[2018-01-19] MEDS: METOCLOPRAMIDE 10 MG TABLET PO SCH ×3 (06:40→17:00)
[2018-01-19] MEDS: INSULIN LISPRO 100 UNIT/ML 3ML SQ SCH ×3 (06:43→17:00)
[2018-01-19] MEDS: INSULIN R PO SS1 SQ SCH ×4 (06:43→21:17)
[2018-01-19 07:13] LABS: LYMPHOCYTES % (MANUAL) 7 % (22-44); SEGMENTED NEUTROPHILS % 93 % (40-70)
[2018-01-19 07:14] LABS: MAN.DIFF COMMENT-IMPRESSION MANUAL DIFFERENTIAL; PLATELET MORPHOLOGY COMMENT ADEQUATE
[2018-01-19] MEDS: METHYLPREDNISOLONE SOD SUCC 125MG/2ML VIAL IVP SCH (08:38)
[2018-01-19] MEDS: DICYCLOMINE HCL 20 MG TAB PO SCH ×3 (08:40→21:07)
[2018-01-19] MEDS: PANTOPRAZOLE SODIUM 40 MG TABLET.DR PO SCH (08:40)
[2018-01-19] MEDS: TRAMADOL HCL 50 MG TABLET PO SCH ×2 (08:40→21:06)
[2018-01-19] MEDS: FAMOTIDINE 20MG TAB 20 MG TAB PO SCH ×2 (08:41→21:07)
[2018-01-19] MEDS ORDERED: DIPHENOXYLATE HCL/ATROPINE 2.5/0.025 MG TAB PO SCH (09:00)
[2018-01-19] MEDS ORDERED: FUROSEMIDE 40 MG TABLET PO SCH (09:00)
[2018-01-19] MEDS ORDERED: ATORVASTATIN CALCIUM 10 MG TABLET PO SCH (09:00)
[2018-01-19] MEDS: Metoprolol Succinate 50 MG PO SCH (09:00)
[2018-01-19] MEDS ORDERED: LOSARTAN 50 MG TABLET PO SCH (09:00)
[2018-01-19] MEDS: Pravastatin Sodium 10 MG PO SCH (09:00)
[2018-01-19] MEDS ORDERED: SODIUM CHLORIDE 0.9% 1000ML 1,000 ML IV SCH (09:03)
[2018-01-19] MEDS: ACETYLCYSTEINE 20% 200MG/ML 4ML VIAL IH SCH ×2 (14:00→23:43)
[2018-01-19] MEDS ORDERED: METHYLPREDNISOLONE SOD SUCC 125MG/2ML VIAL IVP SCH (21:00)
[2018-01-19] MEDS: SERTRALINE HCL 50 MG TABLET PO SCH (21:07)
[2018-01-19] MEDS: GABAPENTIN 300 MG CAPSULE PO SCH (21:07)
[2018-01-19] MEDS: INSULIN GLARGINE 100 UNITS/ML 10 ML VIAL SQ SCH (21:15)
[2018-01-20] MEDS: ONDANSETRON ODT 4 MG TAB PO SCH ×5 (00:28→23:57)
[2018-01-20 04:00] VITALS: BP 136/83
[2018-01-20] MEDS: IPRATROPIUM/ALBUTEROL SULFATE 3 ML SOLUTION IH SCH ×4 (06:07→23:38)
[2018-01-20] MEDS: ACETYLCYSTEINE 20% 200MG/ML 4ML VIAL IH SCH (06:08)
[2018-01-20 06:16] LABS: HEMATOCRIT 27.8 % (36-48); MEAN CORPUSCULAR HEMOGLOBIN 29.2 pg (27.0-33.0); MEAN CORPUSCULAR HGB CONC 34.8 g/dL (32.0-36.0); MEAN CORPUSCULAR VOLUME 83.8 fL (79-99); PLATELET COUNT (AUTO) 494 K/uL (130-400); RED BLOOD CELL COUNT(AUTO) 3.32 MIL/uL (4.00-5.50); RED CELL DISTRIBUTION WIDTH 14.4 % (11.0-15.5)
[2018-01-20 06:21] LABS: CREATININE 1.8 mg/dL (0.5-1.5); POTASSIUM 4.7 mmol/L (3.5-5.1)
[2018-01-20] MEDS: METOCLOPRAMIDE 10 MG TABLET PO SCH ×3 (06:48→17:10)
[2018-01-20] MEDS: LEVOFLOXACIN 500 MG TABLET PO SCH (06:48)
[2018-01-20] MEDS: INSULIN LISPRO 100 UNIT/ML 3ML SQ SCH ×3 (06:53→17:00)
[2018-01-20] MEDS: INSULIN R PO SS1 SQ SCH ×4 (06:54→20:53)
[2018-01-20 07:38] VITALS: BP 143/80
[2018-01-20] MEDS: Pravastatin Sodium 10 MG PO SCH (09:00)
[2018-01-20] MEDS: Metoprolol Succinate 50 MG PO SCH (09:00)
[2018-01-20] MEDS: SODIUM CHLORIDE 0.9% 1000ML 1,000 ML IV SCH ×2 (09:15→22:35)
[2018-01-20] MEDS ORDERED: SODIUM CHLORIDE 0.9% 1000ML 1,000 ML IV SCH (09:25)
[2018-01-20] MEDS ORDERED: DIPHENOXYLATE HCL/ATROPINE 2.5/0.025 MG TAB PO PRN (09:30)
[2018-01-20] MEDS ORDERED: DICYCLOMINE HCL 20 MG TAB PO PRN (09:30)
[2018-01-20] MEDS: ENOXAPARIN SODIUM 30 MG/0.3 ML SQ SCH (09:47)
[2018-01-20] MEDS: TRAMADOL HCL 50 MG TABLET PO SCH ×2 (09:48→20:50)
[2018-01-20] MEDS: FAMOTIDINE 20MG TAB 20 MG TAB PO SCH ×2 (09:48→20:49)
[2018-01-20] MEDS: PANTOPRAZOLE SODIUM 40 MG TABLET.DR PO SCH (09:48)
[2018-01-20 11:14] VITALS: BP 145/91
[2018-01-20 16:27] VITALS: BP 148/97
[2018-01-20] MEDS ORDERED: ACETYLCYSTEINE 20% 200MG/ML 4ML VIAL IH SCH (18:00)
[2018-01-20] MEDS ORDERED: ACETYLCYSTEINE 20% 200MG/ML 4ML VIAL ONE (18:20)
[2018-01-20 20:00] VITALS: BP 133/83
[2018-01-20] MEDS: ATORVASTATIN CALCIUM 10 MG TABLET PO SCH (20:49)
[2018-01-20] MEDS: SERTRALINE HCL 50 MG TABLET PO SCH (20:49)
[2018-01-20] MEDS: GABAPENTIN 300 MG CAPSULE PO SCH (20:50)
[2018-01-20] MEDS: INSULIN GLARGINE 100 UNITS/ML 10 ML VIAL SQ SCH (20:54)
[2018-01-20] MEDS ORDERED: METHYLPREDNISOLONE SOD SUCC 125MG/2ML VIAL IVP SCH (21:00)
[2018-01-21] VITALS: BP 137/86
[2018-01-21 04:00] VITALS: BP 132/83
[2018-01-21] MEDS: INSULIN LISPRO 100 UNIT/ML 3ML SQ SCH ×3 (05:52→17:00)
[2018-01-21] MEDS: INSULIN R PO SS1 SQ SCH ×4 (05:52→21:00)
[2018-01-21] MEDS: ONDANSETRON ODT 4 MG TAB PO SCH ×3 (05:53→23:35)
[2018-01-21] MEDS: METOCLOPRAMIDE 10 MG TABLET PO SCH ×3 (05:53→17:42)
[2018-01-21] MEDS: IPRATROPIUM/ALBUTEROL SULFATE 3 ML SOLUTION IH SCH ×3 (06:00→18:54)
[2018-01-21 06:06] LABS: HEMATOCRIT 25.4 % (36-48); MEAN CORPUSCULAR HEMOGLOBIN 30.1 pg (27.0-33.0); MEAN CORPUSCULAR HGB CONC 35.7 g/dL (32.0-36.0); MEAN CORPUSCULAR VOLUME 84.2 fL (79-99); PLATELET COUNT (AUTO) 461 K/uL (130-400); RED BLOOD CELL COUNT(AUTO) 3.02 MIL/uL (4.00-5.50); RED CELL DISTRIBUTION WIDTH 14.5 % (11.0-15.5); WHITE BLOOD COUNT (AUTO) 7.5 K/uL (4.8-10.8)
[2018-01-21 06:19] LABS: CREATININE 1.8 mg/dL (0.5-1.5)
[2018-01-21 06:52] LABS: B-TYPE NATRIURETIC PEPTIDE 437 pg/mL (0-100)
[2018-01-21 08:36] VITALS: BP 147/90
[2018-01-21] MEDS: Metoprolol Succinate 50 MG PO SCH (09:00)
[2018-01-21] MEDS: Pravastatin Sodium 10 MG PO SCH (09:00)
[2018-01-21] MEDS: FAMOTIDINE 20MG TAB 20 MG TAB PO SCH ×2 (10:33→20:10)
[2018-01-21] MEDS: TRAMADOL HCL 50 MG TABLET PO SCH ×2 (10:33→20:10)
[2018-01-21] MEDS: PANTOPRAZOLE SODIUM 40 MG TABLET.DR PO SCH (10:33)
[2018-01-21] MEDS: METHYLPREDNISOLONE SOD SUCC 125MG/2ML VIAL IVP SCH ×2 (10:34→20:10)
[2018-01-21] MEDS: ENOXAPARIN SODIUM 30 MG/0.3 ML SQ SCH (10:34)
[2018-01-21 11:51] VITALS: BP 140/84
[2018-01-21] MEDS: SODIUM CHLORIDE 0.9% 1000ML 1,000 ML IV SCH (11:55)
[2018-01-21 16:40] VITALS: BP 153/93
[2018-01-21 20:00] VITALS: BP 149/88
[2018-01-21] MEDS: GABAPENTIN 300 MG CAPSULE PO SCH (20:09)
[2018-01-21] MEDS: SERTRALINE HCL 50 MG TABLET PO SCH (20:10)
[2018-01-21] MEDS: ATORVASTATIN CALCIUM 10 MG TABLET PO SCH (20:10)
[2018-01-21] MEDS: INSULIN GLARGINE 100 UNITS/ML 10 ML VIAL SQ SCH (20:19)
[2018-01-22] VITALS: BP 144/89
[2018-01-22] MEDS: IPRATROPIUM/ALBUTEROL SULFATE 3 ML SOLUTION IH SCH ×4 (00:05→18:55)
[2018-01-22] MEDS: SODIUM CHLORIDE 0.9% 1000ML 1,000 ML IV SCH (01:15)
[2018-01-22 04:00] VITALS: BP 133/81
[2018-01-22] MEDS: LEVOFLOXACIN 500 MG TABLET PO SCH (05:40)
[2018-01-22] MEDS: ONDANSETRON ODT 4 MG TAB PO SCH ×3 (05:40→18:59)
[2018-01-22 05:43] LABS: CREATININE 1.6 mg/dL (0.5-1.5); POTASSIUM 5.1 mmol/L (3.5-5.1)
[2018-01-22] MEDS: INSULIN R PO SS1 SQ SCH ×4 (07:30→21:00)
[2018-01-22] MEDS: INSULIN LISPRO 100 UNIT/ML 3ML SQ SCH ×3 (07:30→16:45)
[2018-01-22 08:00] VITALS: BP 150/96
[2018-01-22] MEDS: Metoprolol Succinate 50 MG PO SCH (09:00)
[2018-01-22] MEDS: Pravastatin Sodium 10 MG PO SCH (09:00)
[2018-01-22] MEDS: FUROSEMIDE 40 MG TABLET PO SCH (10:19)
[2018-01-22] MEDS: ENOXAPARIN SODIUM 30 MG/0.3 ML SQ SCH (10:20)
[2018-01-22] MEDS: TRAMADOL HCL 50 MG TABLET PO SCH ×2 (10:20→20:44)
[2018-01-22] MEDS: METOCLOPRAMIDE 10 MG TABLET PO SCH ×3 (10:21→18:58)
[2018-01-22] MEDS: PANTOPRAZOLE SODIUM 40 MG TABLET.DR PO SCH (10:21)
[2018-01-22] MEDS: FAMOTIDINE 20MG TAB 20 MG TAB PO SCH ×2 (10:21→20:42)
[2018-01-22 11:49] VITALS: BP 151/88
[2018-01-22 16:00] VITALS: BP 144/83
[2018-01-22] MEDS ORDERED: FUROSEMIDE 20 MG TABLET PO SCH (18:00)
[2018-01-22 20:00] VITALS: BP 138/87
[2018-01-22] MEDS: SERTRALINE HCL 50 MG TABLET PO SCH (20:41)
[2018-01-22] MEDS: GABAPENTIN 300 MG CAPSULE PO SCH (20:42)
[2018-01-22] MEDS: ATORVASTATIN CALCIUM 10 MG TABLET PO SCH (20:44)
[2018-01-22] MEDS: INSULIN GLARGINE 100 UNITS/ML 10 ML VIAL SQ SCH (21:26)
[2018-01-23] VITALS: BP 142/78
[2018-01-23] MEDS: IPRATROPIUM/ALBUTEROL SULFATE 3 ML SOLUTION IH SCH ×3 (00:39→11:43)
[2018-01-23 04:00] VITALS: BP 137/77
[2018-01-23 05:37] LABS: CREATININE 1.8 mg/dL (0.5-1.5); POTASSIUM 4.4 mmol/L (3.5-5.1)
[2018-01-23] MEDS: ONDANSETRON ODT 4 MG TAB PO SCH ×3 (06:00→09:35)
[2018-01-23 07:30] VITALS: BP 151/91
[2018-01-23] MEDS: INSULIN R PO SS1 SQ SCH (07:30)
[2018-01-23] MEDS: INSULIN LISPRO 100 UNIT/ML 3ML SQ SCH (07:30)
[2018-01-23] MEDS: METOCLOPRAMIDE 10 MG TABLET PO SCH ×2 (07:30→09:35)
[2018-01-23] MEDS: Pravastatin Sodium 10 MG PO SCH (09:00)
[2018-01-23] MEDS ORDERED: PREDNISONE 20 MG TABLET PO SCH (09:00)
[2018-01-23] MEDS: Metoprolol Succinate 50 MG PO SCH (09:00)
[2018-01-23] MEDS: FAMOTIDINE 20MG TAB 20 MG TAB PO SCH (09:35)
[2018-01-23] MEDS: FUROSEMIDE 40 MG TABLET PO SCH (09:37)
[2018-01-23] MEDS: TRAMADOL HCL 50 MG TABLET PO SCH (09:37)
[2018-01-23] MEDS: PANTOPRAZOLE SODIUM 40 MG TABLET.DR PO SCH (09:37)
[2018-01-23] MEDS: ENOXAPARIN SODIUM 30 MG/0.3 ML SQ SCH (09:38)
== END 2018-01-23 11:56 | disposition home or self-care (01) | DRG 469 ==
LOC: EDH 00:21 → OBSVTOIN 00:22 → EDHIP 00:22 → 4BH 16:51
PROVIDERS: ADMIT Internal Medicine; ATTEND Internal Medicine
DX: N17.9 Acute kidney failure, unspecified (principal); J18.9 Pneumonia, unspecified organism; E11.21 Type 2 diabetes mellitus with diabetic nephropathy; E11.40 Type 2 diabetes mellitus with diabetic neuropathy, unspecified; I13.0 Hypertensive heart and chronic kidney disease with heart failure and stage 1 through stage 4 chronic kidney disease, or unspecified chronic kidney disease; I50.32 Chronic diastolic (congestive) heart failure; N18.3 Chronic kidney disease, stage 3 (moderate); E87.1 Hypo-osmolality and hyponatremia; E86.0 Dehydration; D63.8 Anemia in other chronic diseases classified elsewhere; E11.22 Type 2 diabetes mellitus with diabetic chronic kidney disease; E78.00 Pure hypercholesterolemia, unspecified; E78.5 Hyperlipidemia, unspecified; F32.9 Major depressive disorder, single episode, unspecified; K29.70 Gastritis, unspecified, without bleeding; J40 Bronchitis, not specified as acute or chronic; Z79.4 Long term (current) use of insulin; Z88.8 Allergy status to other drugs, medicaments and biological substances; Z82.49 Family history of ischemic heart disease and other diseases of the circulatory system; Z83.3 Family history of diabetes mellitus
CPT/HCPCS: 36415; 71045; 71046; 74018; 80048; 80053; 81001; 82150; 82948; 83690; 83880; 83930; 83935; 84443; 85025; 85027; 86677; 87804; 87880; 93005; 94640; 94664; J1650; J1815; J1956; J2405; J2930; J3490; J7030; J7608

== ENCOUNTER → 2018-04-01 | Outpatient (CLI) | payer MEDICAID ==
[~2018-04-01] MED LIST changes: -ASCO10007 PO; +ATOR10 PO; -CYAN10009 PO; +DICY10CA13 PO; -DOXY100T2 PO; -DULO20CA17 PO; -EXEN5PEN2 SQ; -LISI-617 PO; +LOSA50TA37 PO; +METO-391 PO; +METO2.5T2 PO; -PRED20TA3 PO; +SERT50TA12 PO; +TRAM50TA4 PO
== END | disposition home or self-care (01) ==
LOC: RAH 16:53
PROVIDERS: ATTEND Internal Medicine
DX: R05 Cough (principal)
CPT/HCPCS: 71046

== ENCOUNTER 2018-08-22 22:29 | Inpatient (IN) | payer OTHER ==
[~2018-08-22] VITALS: Ht 162.6 cm; Wt 88.2 kg
[~2018-08-22 22:29] MED LIST changes: +ALBU6.7H IH; +CEFD300C3 PO; -DICY10CA13 PO; -DIPH1TAB24 PO; +FLUT1BLS IH; -GABA-531 PO; +INSLAN SQ; -INSU3INS3 SQ; -LOSA50TA37 PO; +MONT10TA24 PO; -PRAV10TA39 PO; +PRED20TA3 PO; +PROM12.510 PO; +SIME125T52 PO
[2018-08-22 23:12] LABS: BASOPHILS % (AUTO) 1.1 % (0.0-5.0); EOSINOPHILS % (AUTO) 4.7 % (0.0-8.0); LYMPHOCYTES % (AUTO) 8.5 % (21.0-51.0); MEAN CORPUSCULAR HEMOGLOBIN 29.3 pg (27.0-33.0); MEAN CORPUSCULAR HGB CONC 32.9 g/dL (32.0-36.0); MEAN CORPUSCULAR VOLUME 89.2 fL (79-99); MONOCYTES % (AUTO) 4.7 % (3.0-13.0); PLATELET COUNT (AUTO) 294 K/uL (130-400); RED BLOOD CELL COUNT(AUTO) 3.02 MIL/uL (4.00-5.50); RED CELL DISTRIBUTION WIDTH 14.2 % (11.0-15.5); WHITE BLOOD COUNT (AUTO) 10.3 K/uL (4.8-10.8)
[2018-08-22] MEDS ORDERED: SODIUM CHLORIDE 0.9% 1000ML 2,000 ML IV ONE (23:21)
[2018-08-22] MEDS ORDERED: METHYLPREDNISOLONE SOD SUCC 125MG/2ML VIAL ONE (23:21)
[2018-08-22] MEDS ORDERED: ACETAMINOPHEN EXTRA STRENGTH 500 MG TABLET ONE (23:21)
[2018-08-22] MEDS ORDERED: ALBUTEROL SULFATE 0.083% 2.5 MG/3 ML INH IH ONE (23:22)
[2018-08-22] MEDS ORDERED: IPRATROPIUM/ALBUTEROL SULFATE 3 ML SOLUTION IH ONE (23:22)
[2018-08-22 23:23] LABS: INR 0.92 (0.85-1.15); PARTIAL THROMBOPLASTIN TIME 24.7 SEC (26.3-35.5); PROTHROMBIN TIME 9.7 SEC (9.6-11.6)
[2018-08-22 23:38] LABS: ALANINE AMINOTRANSFERASE 53 U/L (12-78); ALBUMIN 2.7 g/dL (3.5-5.0); ASPARTATE AMINOTRANSFERASE 35 U/L (10-37); BILIRUBIN,TOTAL 0.2 mg/dL (0.2-1.0); CARBON DIOXIDE 22 mmol/L (21-32); CHLORIDE 103 mmol/L (101-111); CREATINE KINASE, TOTAL 233 U/L (21-232); CREATININE 2.4 mg/dL (0.5-1.5); GLOMERULAR FILTR. RATE CALC 24 mL/min (>60); MYOGLOBIN 191 ng/mL (10-92); SODIUM SERUM 134 mmol/L (136-145); TOTAL PROTEIN, SERUM 6.2 g/dL (6.0-8.3); TROPONIN I < 0.04 ng/mL (0.00-0.06); UREA NITROGEN, BLOOD 56 mg/dL (7-18)
[2018-08-22 23:40] LABS: GLUCOSE,RANDOM 462 mg/dL (70-105)
[2018-08-23 00:09] LABS: APPEARANCE,URINE Cloudy (CLEAR); BILIRUBIN,URINE Negative (NEGATIVE); COLOR,URINE Yellow (YELLOW); GLUCOSE, URINE (UA) >=1000 mg/dL (NEGATIVE); KETONES,URINE Negative (NEGATIVE); LEUKOCYTE ESTERASE ,URINE Negative (NEGATIVE); NITRATE,URINE Negative (NEGATIVE); OCCULT BLOOD,URINE Moderate (NEGATIVE); PH,URINE 5.5 (5.0-8.0); PROTEIN,URINE 300 (NEGATIVE); UROBILINOGEN,URINE 0.2 mg/dL (0.2-1.0)
[2018-08-23 00:23] LABS: AMORPHOUS SEDIMENT,UR Many /LPF (None Seen); BACTERIA,URINE None Seen /HPF (None Seen); RBC,URINE 0-1 /HPF (0-1); SQUAMOUS EPITHELIAL CELL,UR Moderate /HPF (0-2); WBC,URINE None Seen /HPF (0-1)
[2018-08-23] MEDS ORDERED: AZITHROMYCIN 500MG+NS 250ML 250 ML IV ONE (01:08)
[2018-08-23] MEDS ORDERED: INSULIN HUMULIN R 100 UNIT/ML 3ML ONE ×2 (01:09→13:08)
[2018-08-23 03:00] VITALS: BP 142/73
[2018-08-23] MEDS ORDERED: GUAIFENESIN-CODEINE 5 ML SYRUP PO PRN (03:45)
[2018-08-23] MEDS ORDERED: ACETAMINOPHEN 325 MG TAB PO PRN (03:45)
[2018-08-23] MEDS: SODIUM CHLORIDE 0.9% 1000ML 1,000 ML IV SCH ×2 (03:47→13:12)
[2018-08-23 04:44] LABS: BASOPHILS % (AUTO) 0.8 % (0.0-5.0); HEMATOCRIT 26.1 % (36-48); LYMPHOCYTES % (AUTO) 2.6 % (21.0-51.0); MEAN CORPUSCULAR HEMOGLOBIN 29.9 pg (27.0-33.0); MEAN CORPUSCULAR HGB CONC 33.2 g/dL (32.0-36.0); MEAN CORPUSCULAR VOLUME 90.3 fL (79-99); MONOCYTES % (AUTO) 1.4 % (3.0-13.0); NEUTROPHILS % (AUTO) 95.2 % (40.0-77.0); PLATELET COUNT (AUTO) 289 K/uL (130-400); RED BLOOD CELL COUNT(AUTO) 2.89 MIL/uL (4.00-5.50); RED CELL DISTRIBUTION WIDTH 14.5 % (11.0-15.5); WHITE BLOOD COUNT (AUTO) 8.5 K/uL (4.8-10.8)
[2018-08-23 04:49] LABS: ALBUMIN 2.5 g/dL (3.5-5.0); BILIRUBIN,TOTAL 0.2 mg/dL (0.2-1.0); CREATININE 2.4 mg/dL (0.5-1.5); CRP QUANTITATIVE 4.1 mg/L (0.00-9.0); TOTAL PROTEIN, SERUM 5.9 g/dL (6.0-8.3)
[2018-08-23 04:54] LABS: POTASSIUM 6.4 mmol/L (3.5-5.1)
[2018-08-23] MEDS ORDERED: DEXTROSE 50%-WATER 50 ML DISP.SYRIN IV PRN (05:45)
[2018-08-23] MEDS ORDERED: GLUCAGON 1MG KIT 1 MG ML IM PRN (05:45)
[2018-08-23] MEDS ORDERED: ALBUTEROL SULFATE 0.083% 2.5 MG/3 ML INH IH SCH ×2 (06:00→12:00)
[2018-08-23] MEDS: SODIUM POLYSTYRENE SULFONATE 15 GM/60 ML ML PO SCH ×2 (06:29→08:45)
[2018-08-23 07:08] VITALS: BP 151/92
[2018-08-23] MEDS ORDERED: INSULIN HUMULIN R 100 UNIT/ML 3ML SQ SCH (07:30)
[2018-08-23] MEDS ORDERED: INSULIN HUMULIN R 100 UNIT/ML 3ML IV SCH (08:45)
[2018-08-23] MEDS ORDERED: SODIUM POLYSTYRENE SULFONATE 15 GM/60 ML ML PO SCH (08:45)
[2018-08-23] MEDS ORDERED: DEXTROSE 50%-WATER 25 GM/50 ML VIAL IV ONE (08:45)
[2018-08-23] MEDS ORDERED: CEFTRIAXONE SODIUM 2 GM VIAL IVP SCH (09:00)
[2018-08-23] MEDS ORDERED: HYDROCORTISONE SOD SUCCINATE 100 MG/2 ML VIAL IV SCH (09:00)
[2018-08-23] MEDS: METHYLPREDNISOLONE SOD SUCC 40MG/ML 1ML IVP SCH ×2 (09:04→17:26)
[2018-08-23] MEDS: CEFTRIAXONE SODIUM 2 GM VIAL IVP SCH (09:06)
[2018-08-23 09:13] LABS: ABG BASE EXCESS -11.7 mmol/L (-2.0-3.0); ABG OXYGEN SATURATION 97.2 % (95.0-99.0); ABG PCO2 32 mmHg (32-45)
[2018-08-23] MEDS: AZITHROMYCIN 250 MG TABLET PO SCH (09:19)
[2018-08-23] MEDS: MONTELUKAST SODIUM 10 MG TAB PO SCH (09:19)
[2018-08-23] MEDS ORDERED: DEXTROSE 50%-WATER 50 ML DISP.SYRIN IV SCH (09:30)
[2018-08-23] MEDS ORDERED: DEXTROSE 50%-WATER 25 GM/50 ML VIAL IV SCH (09:30)
[2018-08-23 11:03] LABS: POTASSIUM 5.1 mmol/L (3.5-5.1)
[2018-08-23 11:06] VITALS: BP 149/94
[2018-08-23] MEDS: IPRATROPIUM/ALBUTEROL SULFATE 3 ML SOLUTION IH SCH (11:31)
[2018-08-23] MEDS: INSULIN HUMULIN R 100 UNIT/ML 3ML SQ SCH ×3 (13:08→21:00)
[2018-08-23] MEDS: INSULIN LISPRO 100 UNIT/ML 3ML SQ SCH ×2 (13:10→17:27)
[2018-08-23 16:38] VITALS: BP 150/94
[2018-08-23 19:36] VITALS: BP 147/90
[2018-08-23 23:52] VITALS: BP 136/80
[2018-08-24] MEDS: SODIUM POLYSTYRENE SULFONATE 15 GM/60 ML ML PO SCH ×2 (01:26→08:45)
[2018-08-24] MEDS: METHYLPREDNISOLONE SOD SUCC 40MG/ML 1ML IVP SCH ×3 (01:38→17:22)
[2018-08-24] MEDS: IPRATROPIUM/ALBUTEROL SULFATE 3 ML SOLUTION IH SCH ×5 (01:41→23:51)
[2018-08-24 03:46] VITALS: BP 148/94
[2018-08-24 04:19] LABS: ALBUMIN 2.3 g/dL (3.5-5.0); BILIRUBIN,TOTAL 0.2 mg/dL (0.2-1.0); MAGNESIUM 1.9 mg/dL (1.80-2.40); PHOSPHORUS 4.3 mg/dL (2.5-4.9); POTASSIUM 4.9 mmol/L (3.5-5.1); TOTAL PROTEIN, SERUM 5.6 g/dL (6.0-8.3); URIC ACID 6.8 mg/dL (2.6-7.2)
[2018-08-24 04:27] LABS: % IRON SATURATION 17.7 % (22-44)
[2018-08-24 04:39] LABS: HEMATOCRIT 25.4 % (36-48); MEAN CORPUSCULAR HEMOGLOBIN 29.4 pg (27.0-33.0); MEAN CORPUSCULAR VOLUME 89.1 fL (79-99); PLATELET COUNT (AUTO) 248 K/uL (130-400); RED BLOOD CELL COUNT(AUTO) 2.85 MIL/uL (4.00-5.50); RED CELL DISTRIBUTION WIDTH 14.3 % (11.0-15.5); WHITE BLOOD COUNT (AUTO) 8.7 K/uL (4.8-10.8)
[2018-08-24 04:55] LABS: HEMOGLOBIN A1C 10.8 % (4.0-6.0)
[2018-08-24] MEDS: INSULIN GLARGINE 100 UNITS/ML 10 ML VIAL SQ SCH (04:57)
[2018-08-24] MEDS: INSULIN HUMULIN R 100 UNIT/ML 3ML SQ SCH ×4 (05:02→20:30)
[2018-08-24 05:32] LABS: BAND NEUTROPHILS % (MANUAL) 9 % (0-2); LYMPHOCYTES % (MANUAL) 5 % (22-44); MAN.DIFF COMMENT-IMPRESSION MANUAL DIFFERENTIAL; MONOCYTES % (MANUAL) 2 % (2-9); PLATELET MORPHOLOGY COMMENT ADEQUATE; SEGMENTED NEUTROPHILS % 84 % (40-70)
[2018-08-24] MEDS: BUDESONIDE 0.5 MG/2 ML INH IH SCH ×2 (06:28→17:55)
[2018-08-24 07:27] VITALS: BP 141/84
[2018-08-24] MEDS: INSULIN LISPRO 100 UNIT/ML 3ML SQ SCH ×3 (07:30→17:06)
[2018-08-24] MEDS: SODIUM CHLORIDE 0.9% 1000ML 1,000 ML IV SCH (07:32)
[2018-08-24] MEDS: FOLIC ACID/VITAMIN B COMP W-C 1 MG CAPSULE PO SCH (09:39)
[2018-08-24] MEDS: CEFTRIAXONE SODIUM 2 GM VIAL IVP SCH (09:39)
[2018-08-24] MEDS: AZITHROMYCIN 250 MG TABLET PO SCH (09:39)
[2018-08-24] MEDS: MONTELUKAST SODIUM 10 MG TAB PO SCH (09:39)
[2018-08-24] MEDS ORDERED: COMPOUND IV MISC 1 EACH IVSOLN MISC PRN ×2 (10:00→13:15)
[2018-08-24] MEDS: IRON SUCROSE COMPLEX 100 MG in SODIUM CHLORIDE 0.9% 50 ML IV SCH (10:20)
[2018-08-24] MEDS: FUROSEMIDE 10 MG/ML 4ML VIAL IV SCH ×2 (10:21→20:32)
[2018-08-24 12:00] VITALS: BP 139/82
[2018-08-24 16:29] VITALS: BP 149/91
[2018-08-24 19:51] VITALS: BP 153/94
[2018-08-24 23:37] VITALS: BP 142/82
[2018-08-25] MEDS: INSULIN GLARGINE 100 UNITS/ML 10 ML VIAL SQ SCH (00:30)
[2018-08-25] MEDS: METHYLPREDNISOLONE SOD SUCC 40MG/ML 1ML IVP SCH (00:55)
[2018-08-25 03:45] LABS: HEMATOCRIT 26.1 % (36-48); MEAN CORPUSCULAR HEMOGLOBIN 29.6 pg (27.0-33.0); MEAN CORPUSCULAR HGB CONC 33.4 g/dL (32.0-36.0); MEAN CORPUSCULAR VOLUME 88.7 fL (79-99); PLATELET COUNT (AUTO) 285 K/uL (130-400); RED BLOOD CELL COUNT(AUTO) 2.95 MIL/uL (4.00-5.50); RED CELL DISTRIBUTION WIDTH 14.5 % (11.0-15.5); WHITE BLOOD COUNT (AUTO) 10.3 K/uL (4.8-10.8)
[2018-08-25] MEDS: SODIUM POLYSTYRENE SULFONATE 15 GM/60 ML ML PO SCH ×2 (03:46→08:45)
[2018-08-25 04:02] VITALS: BP 160/98
[2018-08-25 04:59] LABS: B-TYPE NATRIURETIC PEPTIDE 1180 pg/mL (0-100)
[2018-08-25] MEDS: INSULIN HUMULIN R 100 UNIT/ML 3ML SQ SCH (06:16)
[2018-08-25] MEDS: IPRATROPIUM/ALBUTEROL SULFATE 3 ML SOLUTION IH SCH ×2 (06:18→11:14)
[2018-08-25] MEDS: BUDESONIDE 0.5 MG/2 ML INH IH SCH (06:31)
[2018-08-25] MEDS: INSULIN LISPRO 100 UNIT/ML 3ML SQ SCH (07:30)
[2018-08-25 07:36] VITALS: BP 150/90
[2018-08-25] MEDS ORDERED: IRON SUCROSE COMPLEX 100 MG in SODIUM CHLORIDE 0.9% 50 ML IV SCH (09:00)
[2018-08-25] MEDS: IRON SUCROSE COMPLEX 100 MG in SODIUM CHLORIDE 0.9% 50 ML IV SCH (09:00)
[2018-08-25] MEDS ORDERED: PREDNISONE 20 MG TABLET PO SCH (09:00)
[2018-08-25] MEDS: CEFTRIAXONE SODIUM 2 GM VIAL IVP SCH (09:22)
[2018-08-25] MEDS: AZITHROMYCIN 250 MG TABLET PO SCH (09:22)
[2018-08-25] MEDS: FOLIC ACID/VITAMIN B COMP W-C 1 MG CAPSULE PO SCH (09:22)
[2018-08-25] MEDS: MONTELUKAST SODIUM 10 MG TAB PO SCH (09:24)
[2018-08-25] MEDS ORDERED: CETI10TA57 PO (10:46)
[2018-08-25] MEDS ORDERED: LEVO500T2 PO (10:46)
[2018-08-25] MEDS ORDERED: IPRA3AMP24 IH (10:46)
[2018-08-25] MEDS ORDERED: FLUT1BLS IH (10:46)
[2018-08-25] MEDS ORDERED: PRED20B PO (10:46)
[2018-08-25 11:25] VITALS: BP 135/80
[2018-08-25] MEDS ORDERED: INSULIN LISPRO 100 UNIT/ML 3ML SQ SCH (11:30)
== END 2018-08-25 15:15 | disposition home or self-care (01) | DRG 202 ==
LOC: EDH 22:29 → EDHIP 22:30 → 4AH 08-23 03:04 → 2AH 08-23 13:59
PROVIDERS: ADMIT Hospitalist; ATTEND Hospitalist
DX: J45.41 Moderate persistent asthma with (acute) exacerbation (principal); N17.9 Acute kidney failure, unspecified; E44.0 Moderate protein-calorie malnutrition; J90 Pleural effusion, not elsewhere classified; D50.9 Iron deficiency anemia, unspecified; E11.21 Type 2 diabetes mellitus with diabetic nephropathy; E11.22 Type 2 diabetes mellitus with diabetic chronic kidney disease; E11.65 Type 2 diabetes mellitus with hyperglycemia; E78.5 Hyperlipidemia, unspecified; E87.5 Hyperkalemia; E87.70 Fluid overload, unspecified; I12.9 Hypertensive chronic kidney disease with stage 1 through stage 4 chronic kidney disease, or unspecified chronic kidney disease; N18.3 Chronic kidney disease, stage 3 (moderate); Z68.33 Body mass index [BMI] 33.0-33.9, adult; Z88.8 Allergy status to other drugs, medicaments and biological substances; Z71.3 Dietary counseling and surveillance; Z79.4 Long term (current) use of insulin; Z91.19 Patient's noncompliance with other medical treatment and regimen; Z90.710 Acquired absence of both cervix and uterus; Z83.3 Family history of diabetes mellitus; Z82.5 Family history of asthma and other chronic lower respiratory diseases; Z82.49 Family history of ischemic heart disease and other diseases of the circulatory system
CPT/HCPCS: 36415; 36600; 71045; 80048; 80053; 81001; 82550; 82728; 82803; 82947; 82948; 83036; 83540; 83550; 83605; 83735; 83874; 83880; 84100; 84132; 84484; 84550; 85025; 85027; 85610; 85730; 86140; 87040; 87088; 93005; 94640; 94664; A4218; J0456; J0696; J1720; J1756; J1815; J1940; J2920; J2930; J7030; J7070

== ENCOUNTER 2018-10-08 21:24 | Inpatient (IN) | payer OTHER ==
[~2018-10-08] VITALS: Ht 162.6 cm; Wt 74.0 kg
[~2018-10-08 21:24] MED LIST changes: -CEFD300C3 PO; +CETI10TA57 PO; +IPRA3AMP24 IH; +LEVO500T2 PO; +PRED20B PO; -PRED20TA3 PO
[2018-10-08] MEDS ORDERED: SODIUM CHLORIDE 0.9% 1000ML 1,000 ML IV ONE (21:31)
[2018-10-08] MEDS ORDERED: ACETAMINOPHEN EXTRA STRENGTH 500 MG TABLET ONE (21:31)
[2018-10-08] MEDS ORDERED: ONDANSETRON HCL 4 MG/2 ML VIAL ONE (21:31)
[2018-10-08 21:57] LABS: BASOPHILS % (AUTO) 0.8 % (0.0-5.0); EOSINOPHILS % (AUTO) 1.1 % (0.0-8.0); HEMATOCRIT 28.3 % (36-48); LYMPHOCYTES % (AUTO) 6.5 % (21.0-51.0); MEAN CORPUSCULAR HGB CONC 32.9 g/dL (32.0-36.0); MEAN CORPUSCULAR VOLUME 88.1 fL (79-99); MONOCYTES % (AUTO) 5.8 % (3.0-13.0); NEUTROPHILS % (AUTO) 85.8 % (40.0-77.0); PLATELET COUNT (AUTO) 211 K/uL (130-400); RED BLOOD CELL COUNT(AUTO) 3.21 MIL/uL (4.00-5.50); RED CELL DISTRIBUTION WIDTH 14.2 % (11.0-15.5); WHITE BLOOD COUNT (AUTO) 9.3 K/uL (4.8-10.8)
[2018-10-08] MEDS ORDERED: IPRATROPIUM/ALBUTEROL SULFATE 3 ML SOLUTION IH ONE ×2 (21:57→22:34)
[2018-10-08 21:59] LABS: APPEARANCE,URINE CLOUDY (CLEAR); BILIRUBIN,URINE NEGATIVE (NEGATIVE); COLOR,URINE YELLOW (YELLOW); GLUCOSE, URINE (UA) 500 mg/dL (NEGATIVE); KETONES,URINE NEGATIVE (NEGATIVE); LEUKOCYTE ESTERASE ,URINE SMALL (NEGATIVE); NITRATE,URINE NEGATIVE (NEGATIVE); OCCULT BLOOD,URINE LARGE (NEGATIVE); PH,URINE 5.5 (5.0-8.0); PROTEIN,URINE >=300 (NEGATIVE); UROBILINOGEN,URINE 0.2 mg/dL (0.2-1.0)
[2018-10-08 22:01] LABS: BACTERIA,URINE Many /HPF (None Seen)
[2018-10-08 22:02] LABS: SQUAMOUS EPITHELIAL CELL,UR Rare /HPF (0-2); WBC,URINE 51-100 /HPF (0-1)
[2018-10-08 22:06] LABS: RAPID GROUP A STREP NEGATIVE (NEGATIVE)
[2018-10-08] MEDS ORDERED: SODIUM CHLORIDE 0.9% 50 ML IV ONE (22:10)
[2018-10-08] MEDS ORDERED: ZOSYN 3.375GM+NS 50ML 50 ML IV ONE (22:10)
[2018-10-08 22:12] LABS: CARBON DIOXIDE 20 mmol/L (21-32); CHLORIDE 100 mmol/L (101-111); CREATININE 2.4 mg/dL (0.5-1.5); GLOMERULAR FILTR. RATE CALC 24 mL/min (>60); GLUCOSE,RANDOM 328 mg/dL (70-105); POTASSIUM 4.6 mmol/L (3.5-5.1); SODIUM SERUM 131 mmol/L (136-145); UREA NITROGEN, BLOOD 43 mg/dL (7-18)
[2018-10-08 22:15] LABS: INR 0.96 (0.85-1.15); PARTIAL THROMBOPLASTIN TIME 24.5 SEC (26.3-35.5); PROTHROMBIN TIME 10.1 SEC (9.6-11.6)
[2018-10-08 22:46] LABS: ALANINE AMINOTRANSFERASE 21 U/L (12-78); ALBUMIN 2.3 g/dL (3.5-5.0); ASPARTATE AMINOTRANSFERASE 18 U/L (10-37); BILIRUBIN,TOTAL 0.4 mg/dL (0.2-1.0); CREATINE KINASE, TOTAL 394 U/L (21-232); MYOGLOBIN 397 ng/mL (10-92); TOTAL PROTEIN, SERUM 5.7 g/dL (6.0-8.3); TROPONIN I < 0.04 ng/mL (0.00-0.06)
[2018-10-09] MEDS ORDERED: IPRATROPIUM/ALBUTEROL SULFATE 3 ML SOLUTION IH ONE ×2 (02:30→07:42)
[2018-10-09 06:00] VITALS: BP 134/80
[2018-10-09] MEDS ORDERED: GLUCAGON 1MG KIT 1 MG ML IM PRN (06:15)
[2018-10-09] MEDS ORDERED: SODIUM CHLORIDE 0.9% 1000ML 1,000 ML IV SCH (06:15)
[2018-10-09] MEDS ORDERED: ONDANSETRON HCL 4 MG/2 ML VIAL IV PRN (06:15)
[2018-10-09] MEDS ORDERED: ACETAMINOPHEN 325 MG TAB PO PRN (06:15)
[2018-10-09] MEDS ORDERED: SIMETHICONE 80 MG TAB.CHEW PO PRN (06:45)
[2018-10-09] MEDS ORDERED: METOLAZONE 2.5 MG TABLET PO SCH (06:45)
[2018-10-09 07:49] VITALS: BP 142/83
[2018-10-09 08:16] LABS: BASOPHILS % (AUTO) 1.1 % (0.0-5.0); EOSINOPHILS % (AUTO) 3.3 % (0.0-8.0); HEMATOCRIT 27.9 % (36-48); LYMPHOCYTES % (AUTO) 9.8 % (21.0-51.0); MEAN CORPUSCULAR HEMOGLOBIN 29.6 pg (27.0-33.0); MEAN CORPUSCULAR HGB CONC 33.6 g/dL (32.0-36.0); MEAN CORPUSCULAR VOLUME 88.3 fL (79-99); MONOCYTES % (AUTO) 8.7 % (3.0-13.0); NEUTROPHILS % (AUTO) 77.1 % (40.0-77.0); PLATELET COUNT (AUTO) 214 K/uL (130-400); RED BLOOD CELL COUNT(AUTO) 3.16 MIL/uL (4.00-5.50); RED CELL DISTRIBUTION WIDTH 14.1 % (11.0-15.5); WHITE BLOOD COUNT (AUTO) 7.7 K/uL (4.8-10.8)
[2018-10-09 08:23] LABS: HEMOGLOBIN A1C 10.9 % (4.0-6.0)
[2018-10-09 08:33] LABS: ALBUMIN 2.2 g/dL (3.5-5.0); BILIRUBIN,TOTAL 0.3 mg/dL (0.2-1.0); CREATININE 2.5 mg/dL (0.5-1.5); POTASSIUM 4.8 mmol/L (3.5-5.1); TOTAL PROTEIN, SERUM 5.6 g/dL (6.0-8.3)
[2018-10-09] MEDS ORDERED: METHYLPREDNISOLONE SOD SUCC 125MG/2ML VIAL IVP STA (10:03)
[2018-10-09] MEDS: IPRATROPIUM/ALBUTEROL SULFATE 3 ML SOLUTION IH SCH ×4 (10:05→22:43)
[2018-10-09] MEDS ORDERED: BUDESONIDE 0.5 MG/2 ML INH IH ONE (10:10)
[2018-10-09] MEDS: METHYLPREDNISOLONE SOD SUCC 40MG/ML 1ML IVP SCH ×3 (10:15→22:10)
[2018-10-09] MEDS: BUDESONIDE 0.5 MG/2 ML INH IH SCH ×2 (10:31→18:48)
[2018-10-09] MEDS: FUROSEMIDE 10 MG/ML 2ML VIAL IV SCH ×3 (10:39→22:11)
[2018-10-09] MEDS: CETIRIZINE HCL 5 MG TABLET PO SCH (10:39)
[2018-10-09] MEDS: ATORVASTATIN CALCIUM 10 MG TABLET PO SCH (10:40)
[2018-10-09] MEDS: PANTOPRAZOLE SODIUM 40 MG TABLET.DR PO SCH (10:40)
[2018-10-09] MEDS: ENOXAPARIN SODIUM 30 MG/0.3 ML SQ SCH (10:40)
[2018-10-09] MEDS: ZOSYN 3.375GM+NS 50ML 50 ML IV SCH ×2 (10:40→22:10)
[2018-10-09] MEDS: METOPROLOL TARTRATE 25 MG TAB PO SCH ×2 (10:40→22:10)
[2018-10-09] MEDS: INSULIN LISPRO 100 UNIT/ML 3ML SQ SCH ×4 (10:56→22:35)
[2018-10-09] MEDS: INSULIN HUMULIN R 100 UNIT/ML 3ML SQ SCH ×4 (10:57→21:00)
[2018-10-09 11:05] VITALS: BP 129/71
[2018-10-09] MEDS: DEXTROSE 50%-WATER 50 ML DISP.SYRIN IV PRN (15:09)
[2018-10-09] MEDS ORDERED: DEXTROSE 5 % AND 0.9 % NACL 1,000 ML IV ONE (15:14)
[2018-10-09] MEDS ORDERED: DEXTROSE 5 % AND 0.9 % NACL 1,000 ML IV SCH (15:15)
[2018-10-09 16:34] VITALS: BP 153/87
[2018-10-09 20:08] VITALS: BP 138/75
[2018-10-09] MEDS ORDERED: BUDESONIDE 0.25 MG/2 ML INH IH SCH (21:00)
[2018-10-09] MEDS: MONTELUKAST SODIUM 10 MG TAB PO SCH (22:10)
[2018-10-09] MEDS: DOXYCYCLINE HYCLATE 100 MG TABLET PO SCH (22:10)
[2018-10-09] MEDS: SERTRALINE HCL 50 MG TABLET PO SCH (22:11)
[2018-10-09] MEDS: INSULIN GLARGINE 100 UNITS/ML 10 ML VIAL SQ SCH (22:34)
[2018-10-10 00:08] VITALS: BP 132/76
[2018-10-10] MEDS: IPRATROPIUM/ALBUTEROL SULFATE 3 ML SOLUTION IH SCH ×4 (01:46→18:55)
[2018-10-10 04:01] LABS: ABG BASE EXCESS -4.9 mmol/L (-2.0-3.0); ABG HCO3 19.4 mmol/L (21.0-28.0); ABG OXYGEN SATURATION 98.2 % (95.0-99.0); ABG PCO2 34 mmHg (32-45)
[2018-10-10 04:08] VITALS: BP 130/78
[2018-10-10] MEDS: METHYLPREDNISOLONE SOD SUCC 40MG/ML 1ML IVP SCH ×4 (04:16→22:25)
[2018-10-10 04:32] LABS: HEMATOCRIT 27.1 % (36-48); MEAN CORPUSCULAR HEMOGLOBIN 28.9 pg (27.0-33.0); MEAN CORPUSCULAR HGB CONC 32.9 g/dL (32.0-36.0); MEAN CORPUSCULAR VOLUME 87.9 fL (79-99); PLATELET COUNT (AUTO) 222 K/uL (130-400); RED BLOOD CELL COUNT(AUTO) 3.08 MIL/uL (4.00-5.50)
[2018-10-10 04:44] LABS: CREATININE 2.6 mg/dL (0.5-1.5); MAGNESIUM 1.7 mg/dL (1.80-2.40); PHOSPHORUS 5.1 mg/dL (2.5-4.9)
[2018-10-10] MEDS: FUROSEMIDE 10 MG/ML 2ML VIAL IV SCH ×3 (05:44→22:25)
[2018-10-10] MEDS: INSULIN LISPRO 100 UNIT/ML 3ML SQ SCH ×4 (06:35→20:26)
[2018-10-10] MEDS: INSULIN HUMULIN R 100 UNIT/ML 3ML SQ SCH ×4 (06:36→20:24)
[2018-10-10] MEDS: BUDESONIDE 0.5 MG/2 ML INH IH SCH ×2 (07:01→18:55)
[2018-10-10] MEDS ORDERED: SODIUM CHLORIDE 0.9% 1000ML 1,000 ML IV SCH (07:15)
[2018-10-10 08:00] VITALS: BP 132/88
[2018-10-10] MEDS: PANTOPRAZOLE SODIUM 40 MG TABLET.DR PO SCH (08:53)
[2018-10-10] MEDS: ZOSYN 3.375GM+NS 50ML 50 ML IV SCH ×2 (08:53→20:15)
[2018-10-10] MEDS: CETIRIZINE HCL 5 MG TABLET PO SCH (08:53)
[2018-10-10] MEDS: ATORVASTATIN CALCIUM 10 MG TABLET PO SCH (08:53)
[2018-10-10] MEDS: METOPROLOL TARTRATE 25 MG TAB PO SCH ×2 (08:53→20:15)
[2018-10-10] MEDS: DOXYCYCLINE HYCLATE 100 MG TABLET PO SCH ×2 (08:53→20:15)
[2018-10-10] MEDS: ENOXAPARIN SODIUM 30 MG/0.3 ML SQ SCH (08:55)
[2018-10-10 11:00] VITALS: BP 130/75
[2018-10-10 16:00] VITALS: BP 131/78
[2018-10-10] MEDS ORDERED: MAGNESIUM 2GM PREMIX 50ML 50 ML IV SCH (16:30)
[2018-10-10 19:29] VITALS: BP 134/83
[2018-10-10] MEDS: SERTRALINE HCL 50 MG TABLET PO SCH (20:15)
[2018-10-10] MEDS: MONTELUKAST SODIUM 10 MG TAB PO SCH (20:15)
[2018-10-10] MEDS: INSULIN GLARGINE 100 UNITS/ML 10 ML VIAL SQ SCH (20:26)
[2018-10-11] VITALS (7 sets, daily range): BP systolic 128–160; BP diastolic 73–87
[2018-10-11] MEDS: IPRATROPIUM/ALBUTEROL SULFATE 3 ML SOLUTION IH SCH ×5 (00:47→23:10)
[2018-10-11] MEDS: METHYLPREDNISOLONE SOD SUCC 40MG/ML 1ML IVP SCH ×2 (04:44→11:18)
[2018-10-11 04:55] LABS: BASOPHILS % (AUTO) 0.1 % (0.0-5.0); HEMATOCRIT 28.2 % (36-48); MEAN CORPUSCULAR HGB CONC 32.8 g/dL (32.0-36.0); MEAN CORPUSCULAR VOLUME 88.3 fL (79-99); NEUTROPHILS % (AUTO) 88.9 % (40.0-77.0); PLATELET COUNT (AUTO) 235 K/uL (130-400); RED BLOOD CELL COUNT(AUTO) 3.19 MIL/uL (4.00-5.50); WHITE BLOOD COUNT (AUTO) 6.2 K/uL (4.8-10.8)
[2018-10-11 05:01] LABS: ABG BASE EXCESS -3.9 mmol/L (-2.0-3.0); ABG OXYGEN SATURATION 98.2 % (95.0-99.0); ABG PCO2 38 mmHg (32-45)
[2018-10-11 05:14] LABS: CREATININE 2.8 mg/dL (0.5-1.5); POTASSIUM 4.6 mmol/L (3.5-5.1)
[2018-10-11] MEDS: INSULIN HUMULIN R 100 UNIT/ML 3ML SQ SCH ×4 (05:28→21:00)
[2018-10-11] MEDS: FUROSEMIDE 10 MG/ML 2ML VIAL IV SCH ×3 (05:29→22:48)
[2018-10-11] MEDS: BUDESONIDE 0.5 MG/2 ML INH IH SCH ×2 (07:18→18:34)
[2018-10-11] MEDS: INSULIN LISPRO 100 UNIT/ML 3ML SQ SCH ×4 (07:30→21:00)
[2018-10-11] MEDS: ENOXAPARIN SODIUM 30 MG/0.3 ML SQ SCH (09:27)
[2018-10-11] MEDS: DOXYCYCLINE HYCLATE 100 MG TABLET PO SCH ×2 (09:29→20:34)
[2018-10-11] MEDS: ZOSYN 3.375GM+NS 50ML 50 ML IV SCH ×2 (09:29→20:33)
[2018-10-11] MEDS: METOPROLOL TARTRATE 25 MG TAB PO SCH ×2 (09:29→20:33)
[2018-10-11] MEDS: ATORVASTATIN CALCIUM 10 MG TABLET PO SCH (09:29)
[2018-10-11] MEDS: PANTOPRAZOLE SODIUM 40 MG TABLET.DR PO SCH (09:29)
[2018-10-11] MEDS: CETIRIZINE HCL 5 MG TABLET PO SCH (09:29)
[2018-10-11] MEDS: MONTELUKAST SODIUM 10 MG TAB PO SCH (20:33)
[2018-10-11] MEDS: PREDNISONE 10 MG TABLET PO SCH (20:33)
[2018-10-11] MEDS: SERTRALINE HCL 50 MG TABLET PO SCH (20:34)
[2018-10-11] MEDS: INSULIN GLARGINE 100 UNITS/ML 10 ML VIAL SQ SCH (21:00)
[2018-10-12 03:40] VITALS: BP 164/93
[2018-10-12 05:08] LABS: HEMATOCRIT 30.3 % (36-48); MEAN CORPUSCULAR HEMOGLOBIN 28.7 pg (27.0-33.0); MEAN CORPUSCULAR HGB CONC 32.8 g/dL (32.0-36.0); MEAN CORPUSCULAR VOLUME 87.4 fL (79-99); NUCLEATED RED BLOOD CELLS 0.1 % (0.0-0.19); PLATELET COUNT (AUTO) 262 K/uL (130-400); RED BLOOD CELL COUNT(AUTO) 3.47 MIL/uL (4.00-5.50); RED CELL DISTRIBUTION WIDTH 14.3 % (11.0-15.5); WHITE BLOOD COUNT (AUTO) 6.3 K/uL (4.8-10.8)
[2018-10-12 05:18] LABS: CREATININE 2.9 mg/dL (0.5-1.5); POTASSIUM 3.9 mmol/L (3.5-5.1)
[2018-10-12] MEDS: BUDESONIDE 0.5 MG/2 ML INH IH SCH ×2 (05:40→18:33)
[2018-10-12] MEDS: IPRATROPIUM/ALBUTEROL SULFATE 3 ML SOLUTION IH SCH ×4 (05:40→23:16)
[2018-10-12] MEDS: INSULIN HUMULIN R 100 UNIT/ML 3ML SQ SCH ×4 (06:22→21:00)
[2018-10-12] MEDS: FUROSEMIDE 10 MG/ML 2ML VIAL IV SCH ×3 (06:34→21:46)
[2018-10-12 07:00] VITALS: BP 143/89
[2018-10-12] MEDS: INSULIN LISPRO 100 UNIT/ML 3ML SQ SCH ×4 (07:30→21:00)
[2018-10-12] MEDS: ATORVASTATIN CALCIUM 10 MG TABLET PO SCH (09:24)
[2018-10-12] MEDS: PANTOPRAZOLE SODIUM 40 MG TABLET.DR PO SCH (09:24)
[2018-10-12] MEDS: ZOSYN 3.375GM+NS 50ML 50 ML IV SCH ×2 (09:24→21:41)
[2018-10-12] MEDS: CETIRIZINE HCL 5 MG TABLET PO SCH (09:24)
[2018-10-12] MEDS: METOPROLOL TARTRATE 25 MG TAB PO SCH ×2 (09:24→21:41)
[2018-10-12] MEDS: DOXYCYCLINE HYCLATE 100 MG TABLET PO SCH ×2 (09:24→21:41)
[2018-10-12] MEDS: PREDNISONE 10 MG TABLET PO SCH ×2 (09:24→21:41)
[2018-10-12] MEDS: ENOXAPARIN SODIUM 30 MG/0.3 ML SQ SCH (09:25)
[2018-10-12 11:00] VITALS: BP 130/57
[2018-10-12] MEDS: BENZONATATE 100 MG CAPSULE PO SCH ×2 (14:30→21:45)
[2018-10-12 16:00] VITALS: BP 138/89
[2018-10-12 19:00] VITALS: BP 140/90
[2018-10-12] MEDS: INSULIN GLARGINE 100 UNITS/ML 10 ML VIAL SQ SCH (21:00)
[2018-10-12] MEDS: MONTELUKAST SODIUM 10 MG TAB PO SCH (21:41)
[2018-10-12] MEDS: SERTRALINE HCL 50 MG TABLET PO SCH (21:41)
[2018-10-13] VITALS: BP 125/77
[2018-10-13 01:25] LABS: APPEARANCE,URINE Clear (CLEAR); BILIRUBIN,URINE Negative (NEGATIVE); COLOR,URINE Yellow (YELLOW); GLUCOSE, URINE (UA) TRACE mg/dL (NEGATIVE); KETONES,URINE Negative (NEGATIVE); LEUKOCYTE ESTERASE ,URINE Negative (NEGATIVE); NITRATE,URINE Negative (NEGATIVE); OCCULT BLOOD,URINE Trace (NEGATIVE); PH,URINE 5.5 (5.0-8.0); PROTEIN,URINE 300 (NEGATIVE); UROBILINOGEN,URINE 0.2 mg/dL (0.2-1.0)
[2018-10-13 01:33] LABS: BACTERIA,URINE None Seen /HPF (None Seen); MUCUS,URINE Rare LPF (None Seen); RBC,URINE 0-1 /HPF (0-1); SQUAMOUS EPITHELIAL CELL,UR Rare /HPF (0-2); WBC,URINE None Seen /HPF (0-1)
[2018-10-13 04:00] VITALS: BP 152/95
[2018-10-13 05:42] LABS: MEAN CORPUSCULAR HEMOGLOBIN 29.3 pg (27.0-33.0); MEAN CORPUSCULAR HGB CONC 33.6 g/dL (32.0-36.0); MEAN CORPUSCULAR VOLUME 87.2 fL (79-99); PLATELET COUNT (AUTO) 325 K/uL (130-400); RED BLOOD CELL COUNT(AUTO) 3.67 MIL/uL (4.00-5.50); RED CELL DISTRIBUTION WIDTH 14.3 % (11.0-15.5); WHITE BLOOD COUNT (AUTO) 6.7 K/uL (4.8-10.8)
[2018-10-13 05:47] LABS: BAND NEUTROPHILS % (MANUAL) 2 % (0-2); LYMPHOCYTES % (MANUAL) 16 % (22-44); MAN.DIFF COMMENT-IMPRESSION MANUAL DIFFERENTIAL; MONOCYTES % (MANUAL) 2 % (2-9); PLATELET MORPHOLOGY COMMENT ADEQUATE; SEGMENTED NEUTROPHILS % 80 % (40-70)
[2018-10-13] MEDS: IPRATROPIUM/ALBUTEROL SULFATE 3 ML SOLUTION IH SCH ×4 (05:58→23:32)
[2018-10-13] MEDS: FUROSEMIDE 10 MG/ML 2ML VIAL IV SCH ×3 (06:00→21:00)
[2018-10-13 06:01] LABS: ALBUMIN 2.1 g/dL (3.5-5.0); BILIRUBIN,TOTAL 0.2 mg/dL (0.2-1.0); MAGNESIUM 1.7 mg/dL (1.80-2.40); PHOSPHORUS 5.2 mg/dL (2.5-4.9); THYROID STIMULATING HORMONE 1.09 uIU/mL (0.36-3.74); TOTAL PROTEIN, SERUM 5.7 g/dL (6.0-8.3); URIC ACID 8.7 mg/dL (2.6-7.2)
[2018-10-13] MEDS: BENZONATATE 100 MG CAPSULE PO SCH ×3 (06:01→21:00)
[2018-10-13] MEDS: BUDESONIDE 0.5 MG/2 ML INH IH SCH ×2 (06:09→18:13)
[2018-10-13 06:11] LABS: % IRON SATURATION 32.5 % (22-44)
[2018-10-13] MEDS: INSULIN LISPRO 100 UNIT/ML 3ML SQ SCH ×4 (06:48→20:56)
[2018-10-13] MEDS: INSULIN HUMULIN R 100 UNIT/ML 3ML SQ SCH ×4 (06:52→20:55)
[2018-10-13 07:00] VITALS: BP 131/86
[2018-10-13] MEDS: METOPROLOL TARTRATE 25 MG TAB PO SCH ×2 (09:24→21:00)
[2018-10-13] MEDS: DOXYCYCLINE HYCLATE 100 MG TABLET PO SCH ×2 (09:24→21:00)
[2018-10-13] MEDS: ATORVASTATIN CALCIUM 10 MG TABLET PO SCH (09:24)
[2018-10-13] MEDS: ZOSYN 3.375GM+NS 50ML 50 ML IV SCH ×2 (09:24→21:00)
[2018-10-13] MEDS: CETIRIZINE HCL 5 MG TABLET PO SCH (09:24)
[2018-10-13] MEDS: PREDNISONE 10 MG TABLET PO SCH (09:24)
[2018-10-13] MEDS: PANTOPRAZOLE SODIUM 40 MG TABLET.DR PO SCH (09:24)
[2018-10-13] MEDS: FOLIC ACID/VITAMIN B COMP W-C 1 MG CAPSULE PO SCH (09:24)
[2018-10-13] MEDS: ENOXAPARIN SODIUM 30 MG/0.3 ML SQ SCH (09:25)
[2018-10-13 11:00] VITALS: BP 122/74
[2018-10-13 16:00] VITALS: BP 148/92
[2018-10-13 20:00] VITALS: BP 135/82
[2018-10-13] MEDS: INSULIN GLARGINE 100 UNITS/ML 10 ML VIAL SQ SCH (20:56)
[2018-10-13] MEDS: SERTRALINE HCL 50 MG TABLET PO SCH (21:00)
[2018-10-13] MEDS: MONTELUKAST SODIUM 10 MG TAB PO SCH (21:00)
[2018-10-14] VITALS (7 sets, daily range): BP systolic 103–141; BP diastolic 74–80
[2018-10-14] MEDS: BENZONATATE 100 MG CAPSULE PO SCH ×3 (04:51→21:37)
[2018-10-14] MEDS: FUROSEMIDE 10 MG/ML 2ML VIAL IV SCH ×3 (04:51→21:46)
[2018-10-14 05:54] LABS: HEMATOCRIT 31.6 % (36-48); MEAN CORPUSCULAR HEMOGLOBIN 28.3 pg (27.0-33.0); MEAN CORPUSCULAR HGB CONC 32.9 g/dL (32.0-36.0); PLATELET COUNT (AUTO) 306 K/uL (130-400); RED BLOOD CELL COUNT(AUTO) 3.67 MIL/uL (4.00-5.50); RED CELL DISTRIBUTION WIDTH 14.3 % (11.0-15.5); WHITE BLOOD COUNT (AUTO) 8.7 K/uL (4.8-10.8)
[2018-10-14 06:10] LABS: BILIRUBIN,TOTAL 0.2 mg/dL (0.2-1.0); CREATININE 2.9 mg/dL (0.5-1.5); POTASSIUM 3.4 mmol/L (3.5-5.1); TOTAL PROTEIN, SERUM 5.4 g/dL (6.0-8.3)
[2018-10-14] MEDS: IPRATROPIUM/ALBUTEROL SULFATE 3 ML SOLUTION IH SCH ×4 (06:12→23:56)
[2018-10-14] MEDS: INSULIN HUMULIN R 100 UNIT/ML 3ML SQ SCH ×4 (06:13→21:50)
[2018-10-14] MEDS: INSULIN LISPRO 100 UNIT/ML 3ML SQ SCH ×4 (06:13→21:00)
[2018-10-14] MEDS: ZOSYN 3.375GM+NS 50ML 50 ML IV SCH ×2 (10:11→21:37)
[2018-10-14] MEDS: PANTOPRAZOLE SODIUM 40 MG TABLET.DR PO SCH (10:12)
[2018-10-14] MEDS: CETIRIZINE HCL 5 MG TABLET PO SCH (10:12)
[2018-10-14] MEDS: METOPROLOL TARTRATE 25 MG TAB PO SCH ×2 (10:12→21:37)
[2018-10-14] MEDS: DOXYCYCLINE HYCLATE 100 MG TABLET PO SCH ×2 (10:13→21:37)
[2018-10-14] MEDS: ATORVASTATIN CALCIUM 10 MG TABLET PO SCH (10:13)
[2018-10-14] MEDS: FOLIC ACID/VITAMIN B COMP W-C 1 MG CAPSULE PO SCH (10:13)
[2018-10-14] MEDS: PREDNISONE 10 MG TABLET PO SCH (10:13)
[2018-10-14] MEDS: ENOXAPARIN SODIUM 30 MG/0.3 ML SQ SCH (10:14)
[2018-10-14] MEDS ORDERED: POTASSIUM CHLORIDE 10% ELIXIR 20 MEQ/15 ML UDCUP PO ONE (13:00)
[2018-10-14] MEDS: SERTRALINE HCL 50 MG TABLET PO SCH (21:37)
[2018-10-14] MEDS: MONTELUKAST SODIUM 10 MG TAB PO SCH (21:37)
[2018-10-14] MEDS: INSULIN GLARGINE 100 UNITS/ML 10 ML VIAL SQ SCH (21:51)
[2018-10-15] MEDS: DEXTROSE 50%-WATER 50 ML DISP.SYRIN IV PRN ×2 (02:50→11:39)
[2018-10-15 03:00] VITALS: BP 138/70
[2018-10-15 03:20] LABS: HEMATOCRIT 34.1 % (36-48); MEAN CORPUSCULAR HEMOGLOBIN 28.8 pg (27.0-33.0); MEAN CORPUSCULAR HGB CONC 33.1 g/dL (32.0-36.0); PLATELET COUNT (AUTO) 342 K/uL (130-400); RED BLOOD CELL COUNT(AUTO) 3.92 MIL/uL (4.00-5.50); RED CELL DISTRIBUTION WIDTH 14.2 % (11.0-15.5); WHITE BLOOD COUNT (AUTO) 9.8 K/uL (4.8-10.8)
[2018-10-15 03:35] LABS: CREATININE 3.3 mg/dL (0.5-1.5); POTASSIUM 3.6 mmol/L (3.5-5.1)
[2018-10-15] MEDS: FUROSEMIDE 10 MG/ML 2ML VIAL IV SCH ×3 (05:05→21:19)
[2018-10-15] MEDS: BENZONATATE 100 MG CAPSULE PO SCH ×3 (05:05→21:19)
[2018-10-15] MEDS: INSULIN LISPRO 100 UNIT/ML 3ML SQ SCH (06:05)
[2018-10-15] MEDS: INSULIN HUMULIN R 100 UNIT/ML 3ML SQ SCH ×4 (06:05→21:00)
[2018-10-15] MEDS: BUDESONIDE 0.5 MG/2 ML INH IH SCH ×2 (06:51→18:49)
[2018-10-15] MEDS: IPRATROPIUM/ALBUTEROL SULFATE 3 ML SOLUTION IH SCH ×4 (06:51→23:09)
[2018-10-15 08:05] VITALS: BP 148/96
[2018-10-15] MEDS: DOXYCYCLINE HYCLATE 100 MG TABLET PO SCH ×2 (10:24→21:19)
[2018-10-15] MEDS: CETIRIZINE HCL 5 MG TABLET PO SCH (10:24)
[2018-10-15] MEDS: FOLIC ACID/VITAMIN B COMP W-C 1 MG CAPSULE PO SCH (10:24)
[2018-10-15] MEDS: ATORVASTATIN CALCIUM 10 MG TABLET PO SCH (10:24)
[2018-10-15] MEDS: PANTOPRAZOLE SODIUM 40 MG TABLET.DR PO SCH (10:24)
[2018-10-15] MEDS: ZOSYN 3.375GM+NS 50ML 50 ML IV SCH ×2 (10:25→21:19)
[2018-10-15] MEDS: PREDNISONE 10 MG TABLET PO SCH (10:25)
[2018-10-15] MEDS: METOPROLOL TARTRATE 25 MG TAB PO SCH ×2 (10:25→21:20)
[2018-10-15] MEDS: ENOXAPARIN SODIUM 30 MG/0.3 ML SQ SCH (10:29)
[2018-10-15 12:04] VITALS: BP 136/74
[2018-10-15 16:29] VITALS: BP 110/74
[2018-10-15 19:10] VITALS: BP 122/73
[2018-10-15] MEDS: SERTRALINE HCL 50 MG TABLET PO SCH (21:19)
[2018-10-15] MEDS: MONTELUKAST SODIUM 10 MG TAB PO SCH (21:19)
[2018-10-16 00:22] VITALS: BP 123/73
[2018-10-16 04:10] VITALS: BP 136/87
[2018-10-16] MEDS: BENZONATATE 100 MG CAPSULE PO SCH ×3 (05:19→22:21)
[2018-10-16] MEDS: FUROSEMIDE 10 MG/ML 2ML VIAL IV SCH ×3 (05:20→22:34)
[2018-10-16 05:38] LABS: HEMATOCRIT 32.6 % (36-48); MEAN CORPUSCULAR HEMOGLOBIN 28.1 pg (27.0-33.0); MEAN CORPUSCULAR HGB CONC 32.6 g/dL (32.0-36.0); MEAN CORPUSCULAR VOLUME 86.2 fL (79-99); PLATELET COUNT (AUTO) 364 K/uL (130-400); RED BLOOD CELL COUNT(AUTO) 3.79 MIL/uL (4.00-5.50); WHITE BLOOD COUNT (AUTO) 10.1 K/uL (4.8-10.8)
[2018-10-16 05:58] LABS: CREATININE 3.2 mg/dL (0.5-1.5); POTASSIUM 3.9 mmol/L (3.5-5.1)
[2018-10-16] MEDS: INSULIN HUMULIN R 100 UNIT/ML 3ML SQ SCH ×4 (06:07→22:27)
[2018-10-16] MEDS: IPRATROPIUM/ALBUTEROL SULFATE 3 ML SOLUTION IH SCH ×4 (06:42→23:42)
[2018-10-16] MEDS: BUDESONIDE 0.5 MG/2 ML INH IH SCH ×2 (06:56→18:25)
[2018-10-16 08:00] VITALS: BP 135/79
[2018-10-16] MEDS: PANTOPRAZOLE SODIUM 40 MG TABLET.DR PO SCH (09:38)
[2018-10-16] MEDS: FOLIC ACID/VITAMIN B COMP W-C 1 MG CAPSULE PO SCH (09:38)
[2018-10-16] MEDS: DOXYCYCLINE HYCLATE 100 MG TABLET PO SCH ×2 (09:38→22:21)
[2018-10-16] MEDS: PREDNISONE 10 MG TABLET PO SCH (09:38)
[2018-10-16] MEDS: CETIRIZINE HCL 5 MG TABLET PO SCH (09:38)
[2018-10-16] MEDS: ATORVASTATIN CALCIUM 10 MG TABLET PO SCH (09:38)
[2018-10-16] MEDS: METOPROLOL TARTRATE 25 MG TAB PO SCH ×2 (09:38→22:22)
[2018-10-16] MEDS: ENOXAPARIN SODIUM 30 MG/0.3 ML SQ SCH (09:40)
[2018-10-16] MEDS: ZOSYN 3.375GM+NS 50ML 50 ML IV SCH ×2 (09:40→22:34)
[2018-10-16 11:54] VITALS: BP 131/80
[2018-10-16 16:00] VITALS: BP 104/67
[2018-10-16 20:00] VITALS: BP 129/81
[2018-10-16] MEDS: SERTRALINE HCL 50 MG TABLET PO SCH (22:21)
[2018-10-16] MEDS: MONTELUKAST SODIUM 10 MG TAB PO SCH (22:22)
[2018-10-17] VITALS: BP 130/88
[2018-10-17 04:00] VITALS: BP 106/69
[2018-10-17 05:25] LABS: HEMATOCRIT 31.8 % (36-48); MEAN CORPUSCULAR HEMOGLOBIN 29.4 pg (27.0-33.0); MEAN CORPUSCULAR HGB CONC 34.2 g/dL (32.0-36.0); PLATELET COUNT (AUTO) 406 K/uL (130-400)
[2018-10-17 05:42] LABS: CREATININE 3.3 mg/dL (0.5-1.5); POTASSIUM 3.5 mmol/L (3.5-5.1)
[2018-10-17] MEDS: IPRATROPIUM/ALBUTEROL SULFATE 3 ML SOLUTION IH SCH ×2 (06:45→11:34)
[2018-10-17] MEDS: BUDESONIDE 0.5 MG/2 ML INH IH SCH (06:58)
[2018-10-17 07:00] VITALS: BP 141/80
[2018-10-17] MEDS: INSULIN HUMULIN R 100 UNIT/ML 3ML SQ SCH (07:30)
[2018-10-17] MEDS: ATORVASTATIN CALCIUM 10 MG TABLET PO SCH (10:52)
[2018-10-17] MEDS: DOXYCYCLINE HYCLATE 100 MG TABLET PO SCH (10:52)
[2018-10-17] MEDS: METOPROLOL TARTRATE 25 MG TAB PO SCH (10:52)
[2018-10-17] MEDS: CETIRIZINE HCL 5 MG TABLET PO SCH (10:52)
[2018-10-17] MEDS: PANTOPRAZOLE SODIUM 40 MG TABLET.DR PO SCH (10:54)
[2018-10-17] MEDS: FOLIC ACID/VITAMIN B COMP W-C 1 MG CAPSULE PO SCH (10:54)
[2018-10-17] MEDS: ENOXAPARIN SODIUM 30 MG/0.3 ML SQ SCH (10:56)
[2018-10-17] MEDS: ZOSYN 3.375GM+NS 50ML 50 ML IV SCH (11:06)
[2018-10-17 12:00] VITALS: BP 132/80
[2018-10-17 16:00] VITALS: BP 108/62
== END 2018-10-17 18:25 | disposition home or self-care (01) | DRG 871 ==
LOC: EDH 21:24 → EDHIP 10-09 04:35 → 4BH 10-09 06:00 → 3BH 10-12 06:30
PROVIDERS: ADMIT Hospitalist; ATTEND Hospitalist
DX: A41.9 Sepsis, unspecified organism (principal); J18.9 Pneumonia, unspecified organism; J96.21 Acute and chronic respiratory failure with hypoxia; J45.901 Unspecified asthma with (acute) exacerbation; N39.0 Urinary tract infection, site not specified; N17.9 Acute kidney failure, unspecified; I13.0 Hypertensive heart and chronic kidney disease with heart failure and stage 1 through stage 4 chronic kidney disease, or unspecified chronic kidney disease; J44.0 Chronic obstructive pulmonary disease with (acute) lower respiratory infection; J44.1 Chronic obstructive pulmonary disease with (acute) exacerbation; E11.22 Type 2 diabetes mellitus with diabetic chronic kidney disease; E11.319 Type 2 diabetes mellitus with unspecified diabetic retinopathy without macular edema; E11.43 Type 2 diabetes mellitus with diabetic autonomic (poly)neuropathy; B96.89 Other specified bacterial agents as the cause of diseases classified elsewhere; E11.21 Type 2 diabetes mellitus with diabetic nephropathy; E78.5 Hyperlipidemia, unspecified; E87.6 Hypokalemia; I50.9 Heart failure, unspecified; J98.4 Other disorders of lung; K31.84 Gastroparesis; N18.3 Chronic kidney disease, stage 3 (moderate); Z16.24 Resistance to multiple antibiotics; Z90.721 Acquired absence of ovaries, unilateral; Z90.710 Acquired absence of both cervix and uterus; Z88.8 Allergy status to other drugs, medicaments and biological substances; Z87.891 Personal history of nicotine dependence; Z87.01 Personal history of pneumonia (recurrent); Z83.3 Family history of diabetes mellitus; Z82.5 Family history of asthma and other chronic lower respiratory diseases; Z82.49 Family history of ischemic heart disease and other diseases of the circulatory system
CPT/HCPCS: 36415; 36600; 71045; 71250; 73503; 74176; 80048; 80053; 81001; 82550; 82728; 82803; 82947; 82948; 83036; 83540; 83550; 83605; 83735; 83874; 84100; 84443; 84484; 84550; 85025; 85027; 85610; 85730; 87040; 87077; 87088; 87186; 87804; 87880; 93005; 94640; 94664; 99291; J1650; J1815; J1940; J2405; J2543; J2920; J2930; J3475; J7030; J7042; J7070; J7512

== ENCOUNTER 2018-11-24 12:19 | Inpatient (IN) | payer MEDICARE, MEDICAID | END 2018-11-29 12:35 | disposition home or self-care (01) | LOC: EDH 12:19 → EDHIP 16:40 → 3CH 20:01 | DX: A41.9 Sepsis, unspecified organism (principal); J18.1 Lobar pneumonia, unspecified organism; J44.0 Chronic obstructive pulmonary disease with (acute) lower respiratory infection; N17.9 Acute kidney failure, unspecified; J45.901 Unspecified asthma with (acute) exacerbation; E44.0 Moderate protein-calorie malnutrition; N18.9 Chronic kidney disease, unspecified; E11.22 Type 2 diabetes mellitus with diabetic chronic kidney disease ==

== ENCOUNTER → 2019-07-22 | Outpatient (CLI) | payer MEDICARE ==
[~2019-07-22] MED LIST changes: -ALBU6.7H IH; +ALBU6.7H9 IH; +LEVO250T59 PO; -LEVO500T2 PO; -OMEP40CA37 PO; -ONDA4TAB7 PO; -PRED20B PO; -PROM12.510 PO; -SIME125T52 PO; +SIME125T62 PO; -TRAM50TA4 PO
== END | disposition home or self-care (01) ==
LOC: RAH 16:15
PROVIDERS: ATTEND Internal Medicine
DX: R05 Cough (principal); R06.2 Wheezing; F32.9 Major depressive disorder, single episode, unspecified
CPT/HCPCS: 71046

== ENCOUNTER 2021-08-16 22:45 | Emergency (ER) | payer MEDICARE ==
[~2021-08-16 22:45] MED LIST changes: +AMLO5TAB4 PO; -ATOR10 PO; +ATOR10TA69 PO; -CETI10TA57 PO; +FERR324T4 PO; +FLUO20CA35 PO; +FOLI1TAB61 PO; -FURO20TA4 PO; -FURO40TA5 PO; -LEVO250T59 PO; +LORA10TA7 PO; -METO2.5T2 PO; +MONT10TA21 PO; -MONT10TA24 PO; -SERT50TA12 PO; -SIME125T62 PO
[2021-08-16 22:57] VITALS: BP 155/92
[2021-08-17] LABS: BASOPHILS % (AUTO) 1.1 % (0.0-5.0); EOSINOPHILS % (AUTO) 5.5 % (0.0-8.0); HEMATOCRIT 31.3 % (36-48); LYMPHOCYTES % (AUTO) 19.2 % (21.0-51.0); MEAN CORPUSCULAR HEMOGLOBIN 30.8 pg (27.0-33.0); MEAN CORPUSCULAR HGB CONC 32.9 g/dL (32.0-36.0); MEAN CORPUSCULAR VOLUME 93.7 fL (79-99); MONOCYTES % (AUTO) 8.1 % (3.0-13.0); NEUTROPHILS % (AUTO) 65.6 % (40.0-77.0); PLATELET COUNT (AUTO) 251 K/uL (130-400); RED BLOOD CELL COUNT(AUTO) 3.34 MIL/uL (4.00-5.50); RED CELL DISTRIBUTION WIDTH 14.1 % (11.0-15.5); WHITE BLOOD COUNT (AUTO) 8.8 K/uL (4.8-10.8)
[2021-08-17 00:11] LABS: CARBON DIOXIDE 29 mmol/L (21-32); CHLORIDE 102 mmol/L (101-111); CREATININE 3.5 mg/dL (0.5-1.5); GLOMERULAR FILTR. RATE CALC 15 mL/min (>60); GLUCOSE,RANDOM 303 mg/dL (70-105); POTASSIUM 5.5 mmol/L (3.5-5.1); SODIUM SERUM 139 mmol/L (136-145); UREA NITROGEN, BLOOD 43 mg/dL (7-18)
[2021-08-17 00:15] LABS: ALANINE AMINOTRANSFERASE 54 U/L (12-78); ALBUMIN 3.1 g/dL (3.5-5.0); ALCOHOL, BLOOD < 3 mg/dL (0-10); ASPARTATE AMINOTRANSFERASE 38 U/L (10-37); BILIRUBIN,TOTAL 0.3 mg/dL (0.2-1.0); TOTAL PROTEIN, SERUM 6.2 g/dL (6.0-8.3)
[2021-08-17 00:16] LABS: APPEARANCE,URINE Clear (CLEAR); BILIRUBIN,URINE Negative (NEGATIVE); COLOR,URINE Yellow (YELLOW); GLUCOSE, URINE (UA) >=1000 mg/dL (NEGATIVE); KETONES,URINE Negative (NEGATIVE); LEUKOCYTE ESTERASE ,URINE Negative (NEGATIVE); NITRATE,URINE Negative (NEGATIVE); OCCULT BLOOD,URINE Trace (NEGATIVE); PH,URINE 6.5 (5.0-8.0); PROTEIN,URINE >=1000 mg/dL (NEGATIVE); UROBILINOGEN,URINE 0.2 mg/dL (0.2-1.0)
[2021-08-17 00:18] LABS: ACETAMINOPHEN < 1 mcg/mL (10-30); SALICYLATE < 2.8 mg/dL (2.8-20.0)
[2021-08-17 00:21] VITALS: BP 131/90
[2021-08-17 00:24] LABS: BACTERIA,URINE Few /HPF (None Seen); MUCUS,URINE Rare LPF (None Seen)
[2021-08-17 00:51] LABS: AMPHET/METH SCREEN,URINE NEGATIVE (NEGATIVE); BARBITURATE SCREEN, URINE NEGATIVE (NEGATIVE); BENZODIAZEPINES SCREEN,URINE NEGATIVE (NEGATIVE); CANNABINOID SCREEN,URINE NEGATIVE (NEGATIVE); COCAINE SCREEN,URINE NEGATIVE (NEGATIVE); OPIATE SCREEN,URINE NEGATIVE (NEGATIVE); PHENCYCLIDINE SCREEN,URINE NEGATIVE (NEGATIVE)
[2021-08-17 03:18] VITALS: BP 128/89
== END 2021-08-17 03:16 | disposition home or self-care (01) ==
LOC: EDH 22:45
DX: I12.0 Hypertensive chronic kidney disease with stage 5 chronic kidney disease or end stage renal disease (principal); F32.9 Major depressive disorder, single episode, unspecified; E11.22 Type 2 diabetes mellitus with diabetic chronic kidney disease; N18.6 End stage renal disease; Z79.4 Long term (current) use of insulin; F41.9 Anxiety disorder, unspecified; Z79.51 Long term (current) use of inhaled steroids; Z79.899 Other long term (current) drug therapy; Z99.2 Dependence on renal dialysis
CPT/HCPCS: 36415; 80053; 80305; 81001; 85025; 87088; 99283; G0481

== ENCOUNTER → 2022-04-27 | Outpatient (CLI) | payer OTHER, MEDICARE ==
[~2022-04-27] MED LIST changes: -FLUO20CA35 PO; +FLUO20CA36 PO
== END | disposition home or self-care (01) ==
LOC: RAH 14:39
DX: J47.1 Bronchiectasis with (acute) exacerbation (principal); R91.1 Solitary pulmonary nodule; J84.9 Interstitial pulmonary disease, unspecified
CPT/HCPCS: 71250

== ENCOUNTER → 2023-01-19 | Outpatient (CLI) | payer OTHER, MEDICARE ==
[~2023-01-19] MED LIST changes: +ALBU6.7H14 IH; -ALBU6.7H9 IH
== END | disposition home or self-care (01) ==
LOC: RAH 11:18
PROVIDERS: ATTEND Internal Medicine
DX: I51.7 Cardiomegaly (principal); J45.50 Severe persistent asthma, uncomplicated
CPT/HCPCS: 71046

== ENCOUNTER → 2023-12-20 | Outpatient (CLI) | payer OTHER, MEDICARE ==
[~2023-12-20] MED LIST changes: +IOHEXOL 350 MG/ML 100ML INFUS..BTL IV ONE; +MONT-46 PO; -MONT10TA21 PO
== END | disposition home or self-care (01) ==
LOC: RAH 12:24
PROVIDERS: ATTEND Internal Medicine Gastroenterology
DX: K76.0 Fatty (change of) liver, not elsewhere classified (principal); R13.10 Dysphagia, unspecified; R10.32 Left lower quadrant pain; M47.815 Spondylosis without myelopathy or radiculopathy, thoracolumbar region; I51.7 Cardiomegaly; Z90.49 Acquired absence of other specified parts of digestive tract
CPT/HCPCS: 74176; Q9967

== ENCOUNTER → 2024-05-27 | Outpatient (CLI) | payer MEDICARE ==
[~2024-05-27] MED LIST changes: +FLUO-418 PO; -FLUO20CA36 PO; -IOHEXOL 350 MG/ML 100ML INFUS..BTL IV ONE
== END | disposition home or self-care (01) ==
LOC: RAH 10:52
PROVIDERS: ATTEND Internal Medicine
DX: M47.815 Spondylosis without myelopathy or radiculopathy, thoracolumbar region (principal); M54.6 Pain in thoracic spine; M54.50 Low back pain, unspecified; Z90.49 Acquired absence of other specified parts of digestive tract
CPT/HCPCS: 72070; 72100

== ENCOUNTER → 2024-08-20 | Outpatient (CLI) | payer MEDICARE | END | disposition home or self-care (01) | LOC: RAH 12:52 | PROVIDERS: ATTEND Internal Medicine Gastroenterology | DX: R13.11 Dysphagia, oral phase (principal); R63.30 Feeding difficulties, unspecified | CPT/HCPCS: 74230; 92611 ==

== ENCOUNTER → 2025-03-02 | Outpatient (CLI) | payer MEDICARE ==
[~2025-03-02] VITALS: Ht 160 cm; Wt 90.4 kg
[~2025-03-02] MED LIST changes: +ALBU2.5V2 IH; +ALBUTEROL IH; +ALPR0.255 PO; +AUD NEB; +BREYNA IH; +DOCU100C33 PO; +DUPI200P SQ; +ESCI5TAB16 PO; +FOLI0.8T22 PO; +INSU3INS3 SQ; +LACT-441 PO; +LOSA100T59 PO; +METO-409 PO; +MIRT45TA83 PO; +OMEP40CA21 PO; +ONDA-243 PO; +OXYGEN NASAL; +SEVE800T27 PO; +SODI5POW2 PO; +VENTOLIN IH
[2025-03-02 10:16] VITALS: BP 159/89; PULSE 80; RESP 18; TEMP 97.9
[2025-03-02 10:51] LABS: BASOPHILS # (AUTO) 0.08 K/uL (0.00-0.20); BASOPHILS % (AUTO) 1.5 % (0.0-5.0); EOSINOPHILS # (AUTO) 0.24 K/uL (0.00-0.70); EOSINOPHILS % (AUTO) 4.5 % (0.0-8.0); IMMATURE GRANULOCYTE ABSOLUTE 0.01 K/uL (0-1); LYMPHOCYTES # (AUTO) 1.4 K/uL (1.0-4.8); MEAN CORPUSCULAR HEMOGLOBIN 31.5 pg (27.0-33.0); MEAN CORPUSCULAR HGB CONC 32.5 g/dL (32.0-36.0); MONOCYTES # (AUTO) 0.6 K/uL (0.1-1.0); MONOCYTES % (AUTO) 10.4 % (3.0-13.0); NEUTROPHILS % (AUTO) 56.4 % (40.0-77.0); PLATELET COUNT (AUTO) 139 K/uL (130-400); RED CELL DISTRIBUTION WIDTH 15.4 % (11.0-15.5); WHITE BLOOD COUNT (AUTO) 5.3 K/uL (4.8-10.8)
[2025-03-02 11:11] LABS: ALBUMIN 3.3 g/dL (3.5-5.0); BILIRUBIN,TOTAL 1.2 mg/dL (0.2-1.0); CREATININE 7.1 mg/dL (0.5-1.0); POTASSIUM 5.1 mmol/L (3.5-5.1); TOTAL PROTEIN, SERUM 6.4 g/dL (6.0-8.3)
[2025-03-02 11:40] LABS: INR 1.13 (0.85-1.15); PROTHROMBIN TIME 11.8 SEC (9.6-11.6)
[2025-03-02 11:41] LABS: PARTIAL THROMBOPLASTIN TIME 27.7 SEC (26.3-35.5)
== END | disposition home or self-care (01) ==
LOC: EDSTATUS 08:00 → DAH 09:34
PROVIDERS: ATTEND Student in an Organized Health Care Education/Training Program
DX: Z01.812 Encounter for preprocedural laboratory examination (principal); I13.2 Hypertensive heart and chronic kidney disease with heart failure and with stage 5 chronic kidney disease, or end stage renal disease; E11.22 Type 2 diabetes mellitus with diabetic chronic kidney disease; N18.6 End stage renal disease; I50.31 Acute diastolic (congestive) heart failure; Z99.2 Dependence on renal dialysis; I72.9 Aneurysm of unspecified site
CPT/HCPCS: 80053; 84703; 85025; 85610; 85730; 86850; 86900; 86901; 36415; A6260

== ENCOUNTER 2025-04-24 13:16 | Inpatient (IN) | payer MEDICARE ==
[~2025-04-24] VITALS: Ht 160 cm; Wt 87.6 kg
[~2025-04-24 13:16] MED LIST changes: -ALBU2.5V2 IH; -ALBU6.7H14 IH; -ALBUTEROL IH; -AMLO5TAB4 PO; -FERR324T4 PO; -FLUO-418 PO; -FLUT1BLS IH; -FOLI1TAB61 PO; -INSLAN SQ; -IPRA3AMP24 IH; -LORA10TA7 PO; -METO-391 PO
--- NOTE | 2025-04-24 13:26 | NUR ---
PT JUST NOW PLACED IN ED BED 16
--- NOTE | 2025-04-24 14:23 | ERN ---
ED Note History of Present Illness Stated Complaint: RIGHT SIDE PAIN Chief Complaint: Back Pain or Injury Time Seen by MD: 14:15 Dictation: This is a 49-year-old female who presented to the emergency room stating that she has had a back pain on the right side. She has also had a cough for the past 3 months which is productive at times. She has a known history of COPD and uses bronchodilator therapy. She is on dialysis Sunday schedule and her last dialysis was on patient's son was at bedside during my evaluation No history of any fall or injury to the back she denied any fever chills or rigors but she is on multiple medications which could be masking a febrile episode Temperature 98.1 pulse 78 respirations 16 blood pressure 155/88 with a pulse oximetry of 95% on room air Chronic medical problems include diabetes mellitus, hypertension, anxiety, asthma, COPD, depression, end-stage renal disease on hemodialysis, Lava. Allergies: Coded Allergies: eluxadoline (Unverified Allergy, Unknown, 01/18/18) metoclopramide (Unverified Allergy, Unknown, 03/02/25) rifaximin (Unverified Allergy, Unknown, 01/18/18) Home Meds Reported Medications [Oxygen] No Conflict Check, 2 L NASAL CONT 03/02/25 Alprazolam (Alprazolam) 0.25 Mg Tablet, 0.25 MG PO AD PRN for ANXIETY/AGITATION, TAB 03/02/25 Metoprolol Succinate (Metoprolol Succinate) 100 Mg Tab.er.24h, 150 MG PO HS, TAB 03/02/25 Ondansetron (Ondansetron Odt) 4 Mg Tab.rapdis, 4 MG PO AD PRN for NAUSEA/VOMITING, TAB 03/02/25 [Ventolin] No Conflict Check, 2 PUFF IH AD PRN for SHORTNESS OF BREATH/WHEEZING 03/02/25 Folic Acid/Vitamin B Comp W-C (Ivy-Radhika Tablet) 0.8 Mg Tablet, 0.8 MG PO AM, TAB 03/02/25 Escitalopram Oxalate (Escitalopram Oxalate) 5 Mg Tablet, 1 TAB PO DAILY 03/02/25 Insulin Glargine,Hum.rec.anlog (Lantus Solostar) 100 Unit/Ml (3 Ml) Insuln.pen, 16 UNIT SQ HS 03/02/25 Sevelamer HCl (Sevelamer HCl) 800 Mg Tablet, 3 TAB PO TIDMEALS 03/02/25 Docusate Sodium (Docusate Sodium) 100 Mg Capsule, 1 CAP PO AD PRN for constipation 03/02/25 Mirtazapine (Mirtazapine) 45 Mg Tablet, 1 TAB PO HS 03/02/25 Omeprazole (Omeprazole) 40 Mg Capsule.dr, 1 CAP PO DAILY 03/02/25 Albuterol Sulfate (Albuterol Sulfate) 2.5 Mg/0.5 Ml Vial.neb, 1 APPL NEB AD PRN for SHORTNESS OF BREATH/WHEEZING 03/02/25 [Breyna] No Conflict Check, 2 PUFF IH BID 03/02/25 Dupilumab (Dupixent Pen) 200 Mg/1.14 Ml Pen.injctr, 200 MG SQ [id number] 03/02/25 Sodium Zirconium Cyclosilicate (Lokelma) 5 Gram Powd.pack, 1 PKT PO AD 03/02/25 Lactulose (Lactulose) 10 Gram/15 Ml Solution, 10 ML PO AD PRN for CONSTIPATION 03/02/25 Losartan Potassium (Losartan Potassium) 100 Mg Tablet, 1 TAB PO DAILY 03/02/25 Insulin Aspart (Novolog Flexpen) 100 Unit/Ml (3 Ml) Insuln.pen, 12 UNITS SQ TIDAC, SYRINGE 09/25/20 Montelukast Sodium (Singulair 10Mg) 10 Mg Tab, 10 MG PO PM, TAB 08/15/20 Atorvastatin Calcium (Atorvastatin Calcium) 10 Mg Tablet, 10 MG PO HS for HYPERLIPIDEMIA, TAB 08/15/20 Past Medical History Past Medical History: Anxiety, Arthritis, Asthma, COPD, Depression, Diabetes- Type II, Hypertension, Renal Disese, Renal Failure Additional Past Medical Hx: HEMODIALYSIS, RA, BLIND BOTH EYES Surgical History: Appendectomy, Hysterectomy, , LAVA Surgical History Other: HERNIA REPAIR, RIGHT EYE SX Family History: Negative Social History: Negative RN Note Reviewed/Agreed w/PFSH: Yes Review of System Dictation Constitutional: Negative for fever,chills, and weight loss Eyes: Negative for injury, pain,redness, and discharge ENT: Negative for injury,pain or swelling Cardiovascular: Negative for chest pain, palpitations, and edema Respiratory: Positive for shortness of breath, cough, and wheezing, Abdomen/GI: Negative for abdominal pain, nausea, vomiting, diarrhea, and constipation Back: Negative for injury and positive for upper back pain as well as radiating down on the right side : Negative for injury, bleeding and discharge MS/Extremity: Negative for injury and deformity Skin: Negative for rash, and discoloration Neuro: Negative for headache, weakness, numbness, tingling, and seizure Psych: Negative for suicide ideation, homicidal ideation, and hallucinations Initial Vital Sign VS Vital Signs Date Time Temp Pulse Resp B/P (MAP) Pulse Ox O2 Delivery O2 Flow Rate FiO2 04/24/25 13:20 98.1 78 16 155/88 95 Room Air 0 04/24/25 18:23 28 Physical Exam Dictation General: awake, alert, NAD Head/Face: Normocephalic, atraumatic Eyes: PERRL, EOMI, vision at baseline ENT: oral cavity clear, TMs clear, no signs of infection Neck: Trachea midline, supple, no nuchal rigidity Cardiovascular: RRR, normal S1/S2, No MRGs, no JVD Respiratory: Decreased breath sounds at the right base and dullness to percussion no tenderness in the flank area or lower back area Abdomen: Soft, non-tender, non-distended, normal bowel sounds, no guarding or rebound. Skin: Warm, dry, normal turgor, no rash MS/Extremity: Pulses equal, no cyanosis, neurovascular intact, FROM Neuro: COAx4, GCS 15, strength 5/5, CN 2-12 intact, normal cerebellar exam, normal gait, Psych: Normal behavior, mood, and affect normal Extremities-trace edema without any palpable cords, Homans sign is negative Results (Laboratory/Radiology) Laboratory/Radiology Laboratory Tests Test 04/24/25 17:40 White Blood Count 7.4 K/uL (4.8-10.8) Red Blood Count 4.64 MIL/uL (4.00-5.50) Hemoglobin 14.5 g/dL (12.0-16.0) Hematocrit 43.3 % (36-48) Mean Corpuscular Volume 93.3 fL (79-99) Mean Corpuscular Hemoglobin 31.3 pg (27.0-33.0) Mean Corpuscular Hemoglobin Concent 33.5 g/dL (32.0-36.0) Red Cell Distribution Width 15.6 % (11.0-15.5) H Platelet Count 105 K/uL (130-400) L Mean Platelet Volume 9.9 fL (7.5-10.5) Immature Granulocyte % (Auto) 0.1 % (0-1) Neutrophils (%) (Auto) 70.1 % (40.0-77.0) Lymphocytes (%) (Auto) 17.3 % (21.0-51.0) L Monocytes (%) (Auto) 9.7 % (3.0-13.0) Eosinophils (%) (Auto) 1.6 % (0.0-8.0) Basophils (%) (Auto) 1.2 % (0.0-5.0) Neutrophils # (Auto) 5.2 K/uL (1.8-7.7) Lymphocytes # (Auto) 1.3 K/uL (1.0-4.8) Monocytes # (Auto) 0.7 K/uL (0.1-1.0) Eosinophils # (Auto) 0.12 K/uL (0.00-0.70) Basophils # (Auto) 0.09 K/uL (0.00-0.20) Absolute Immature Granulocyte (auto 0.01 K/uL (0-1) Nucleated Red Blood Cells 0.0 % (0.0-0.19) Prothrombin Time 12.6 SEC (9.6-11.6) H Prothromb Time International Ratio 1.21 (0.85-1.15) H Activated Partial Thromboplast Time 27.9 SEC (26.3-35.5) Sodium Level 135 mmol/L (136-145) L Potassium Level 5.6 mmol/L (3.5-5.1) H Chloride Level 97 mmol/L (101-111) L Carbon Dioxide Level 27 mmol/L (21-32) Blood Urea Nitrogen 41 mg/dL (7-18) H Creatinine 6.9 mg/dL (0.5-1.0) H Glomerular Filtration Rate Calc 7 mL/min (>90) Random Glucose 189 mg/dL (70-105) H Total Calcium 8.3 mg/dL (8.5-10.1) L Total Creatine Kinase 113 U/L (21-232) Troponin I High Sensitivity 14.6 ng/L (4-50) B-Type Natriuretic Peptide 2250 pg/mL (0-100) H ED Course ED Course Orders Procedure Category Date Status Time Chest 1vw RAD 04/24/25 Resulted 14:18 Morphine 2mg Syg PHA 04/24/25 Complete (Morphine 2mg Syg) 14:30 Ondansetron 4mg Inj PHA 04/24/25 Complete (Zofran 4mg Inj) 14:30 Methylprednisolone PHA 04/24/25 Complete Succ 125mg (Solu-Medr 14:30 Ipratropium/Albuterol PHA 04/24/25 Complete Neb (Duoneb) 14:30 Morphine 4mg Syg PHA 04/24/25 Complete (Morphine 4mg Syg) 16:00 Ondansetron Odt 4mg PHA 04/24/25 Complete Tab (Zofran 4mg Odt) 16:00 Methylprednisolone PHA 04/24/25 Complete Succ 125mg (Solu-Medr 16:00 O2 Nc Keep Sats CPOE 04/24/25 Transmitted Greater 92% 17:27 Cbc With Differential LAB 04/24/25 Complete 17:27 B-Type Natriuretic LAB 04/24/25 Complete Peptide 17:27 Cardiac Panel LAB 04/24/25 Complete 17:27 12 Lead Ekg Tracing- EKG 04/24/25 Complete Technical 17:27 Basic Metabolic Panel LAB 04/24/25 Complete 17:27 Zosyn 3.375gm+Ns 50ml PHA 04/24/25 Complete (Zosyn 3.375gm+Ns 17:30 Vancomycin 1g/250ml PHA 04/24/25 Complete Kit (Vancomycin 1g/[address] 17:[address] Midline Access CPOE 04/24/25 Transmitted 18:26 Pt And Ptt LAB 04/24/25 Complete 18:28 Edm Admit Bridge Order ADM 04/24/25 Verified 18:52 Current Medications Medications (Trade) Dose Ordered Sig/Wong Route PRN Reason Start Time Stop Time Status Last Admin Dose Admin Albuterol (DUOneb) 1 UDVIAL ONCE ONCE IH 04/24/25 14:30 04/24/25 14:31 DC 04/24/25 15:04 Methylprednisolone Sodium Succinate (Solu-medROL 125MG) 125 mg ONCE ONCE IM 04/24/25 16:00 04/24/25 16:01 DC 04/24/25 16:01 Methylprednisolone Sodium Succinate (Solu-medROL 125MG) 125 mg ONCE ONCE IVP 04/24/25 14:30 04/24/25 15:35 DC Morphine Sulfate (morPHINE 2MG SYG) 2 mg ONCE ONCE IVP 04/24/25 14:30 04/24/25 15:35 DC Morphine Sulfate (morPHINE 4MG SYG) 4 mg ONCE ONCE IM 04/24/25 16:00 04/24/25 16:01 DC 04/24/25 16:01 Ondansetron HCl (zoFRAN 4MG INJ) 4 mg ONCE ONCE IVP 04/24/25 14:30 04/24/25 15:35 DC Ondansetron HCl (zoFRAN 4MG ODT) 4 mg ONCE ONCE SL 04/24/25 16:00 04/24/25 16:01 DC 04/24/25 16:01 Piperacillin Sod/ Tazobactam Sod (Zosyn 3.375gm+NS 50ml) 3.375 gm ONCE ONCE IV 04/24/25 17:30 04/24/25 17:33 DC Vancomycin HCl (Vancomycin 1g/ 250ml Kit) 1 gm ONCE ONCE IV 04/24/25 17:30 04/24/25 17:32 DC Vital Signs Date Time Temp Pulse Resp B/P (MAP) Pulse Ox O2 Delivery O2 Flow Rate FiO2 04/24/25 18:23 76 12 156/92 96 Nasal Cannula* 2 28 04/24/25 15:05 72 20 04/24/25 13:20 98.1 78 16 155/88 95 Room Air 0 We will perform diagnostic labs, advanced imaging and administer medications according to the patient's complaint. Once the results are available, will review and personally interpreted the labs to rule out any acute life- threatening emergency the trach require immediate intervention and treatment. I will then re-evaluate the patient after treatment and diagnostic exams have return to determine whether the patient requires any further testing, can safely be discharged home or need further admission to hospital for additional treatment and evaluation. I reviewed the chest x-ray in view of her chronic cough-right basilar pneumonia with pleural effusion noted. It may simply be related to her volume overload however in comparison to the old chest x-ray these findings are new. I have requested CBC and BNP 7 and recommended admission to the hospital in view of being on dialysis and technically immunocompromised and at risk for gram- negative infections. Patient and son are agreeable. She is due for hemodialysis tomorrow 6:40 p.m. patient accepted by [facility]-level provider for hospitalist group for admission and further management Medical Decision Making MDM MDM: Differential diagnosis: Lumbago, musculoskeletal pain, neuropathy, pleural space infection, Rationale: Tests considered and ordered secondary to shared decision making include: labs, ECG and radiology Previous outside records reviewed: Old ER visits. Risk of complication and/or morbidity or mortality of patient management: None Medications-Per medication reconciliation Need for hospitalization: Patient does meet criteria for hospitalization. Need for emergency major/minor surgery: No There are no social concerns with this patient. Prescription drug management Prescriptions will include symptomatic care Patient's prior external medical records from other ER visits were reviewed by me as indicated. Prior testing and results from previous visits were reviewed. Prior tests were taken into account with medical decision making and resource utilization, independent historian/historians were used to obtain complete medical history. I independently interpreted the test that were performed, results were reviewed by me and considered findings on radiology if ordered. Medical management and examination interpretation discussions were had by me with other qualified healthcare professionals as indicated for the patient's care. Problem List Problem List: (1) Right lower lobe pneumonia (2) Pleural effusion, right (3) Type 2 diabetes mellitus, uncontrolled (4) ESRD on dialysis DX & DISP Disposition: Inpatient Departure Impression: Primary Impression: Right lower lobe pneumonia Additional Impressions: Pleural effusion, right, ESRD on dialysis Condition: Stable Additional Instructions: Patient was informed of all the diagnostic labs and procedures conducted in the emergency room today and demonstrated understanding of the results. I personally reviewed and interpreted all the diagnostic exams performed in the ER today. The patient will be admitted to the hospital for further treatment and evaluation. Disposition-admit to facility Condition-stable/guarded Course-uncertain at this time Pain status-decreased Assessment-exam unchanged Admission Certification- I certify that the patients status is appropriate and is based on my best clinical judgment and the patient's condition as documented in the medical records Referrals: OLIVER DAVILA MD (PCP) YUE MANRIQUE MD Apr 24, 2025 14:23
[2025-04-24] MEDS ORDERED: morPHINE 2 MG SYG IVP ONE (14:30)
[2025-04-24] MEDS ORDERED: Solu-medROL 125MG VIAL IVP ONE (14:30)
[2025-04-24] MEDS ORDERED: ondanSETRON 4MG INJ IVP ONE (14:30)
--- NOTE | 2025-04-24 14:40 | NUR ---
LYNNE MOBILE PAINT SPECIALIST INFORMED OF PENDING NEB TREATMENT
--- NOTE | 2025-04-24 14:59 | HMCIMG ---
Exam Type: CHEST 1VW Clinical Information: chronic cough Comparison: None Findings and impression: Cardiomegaly. Right moderate pleural effusion. Possibility of underlying right pneumonia cannot be excluded. Right permacath in place. No pneumothorax. Clear left lung. Follow-up is advised.
[2025-04-24] MEDS: IpraTROPium/alBUTERol SULFATE 3 ML SOLUTION IH ONE (15:04)
[2025-04-24 15:05] VITALS: PULSE 72; RESP 20
[2025-04-24] MEDS: ondanSETRON ODT 4MG TAB SL ONE (16:01)
[2025-04-24] MEDS: morPHINE 4 MG SYG IM ONE (16:01)
[2025-04-24] MEDS: Solu-medROL 125MG VIAL IM ONE (16:01)
[2025-04-24] MEDS: VANCOMYCIN KIT 1 GM/250 ML IV.KIT IV ONE (17:30)
--- NOTE | 2025-04-24 17:30 | NUR ---
PT STATES SHE FEELS A BIT BETTER POST MEDICATIONS
[2025-04-24 17:53] LABS: BASOPHILS # (AUTO) 0.09 K/uL (0.00-0.20); BASOPHILS % (AUTO) 1.2 % (0.0-5.0); EOSINOPHILS # (AUTO) 0.12 K/uL (0.00-0.70); EOSINOPHILS % (AUTO) 1.6 % (0.0-8.0); HEMATOCRIT 43.3 % (36-48); IMMATURE GRANULOCYTE ABSOLUTE 0.01 K/uL (0-1); LYMPHOCYTES # (AUTO) 1.3 K/uL (1.0-4.8); LYMPHOCYTES % (AUTO) 17.3 % (21.0-51.0); MEAN CORPUSCULAR HEMOGLOBIN 31.3 pg (27.0-33.0); MEAN CORPUSCULAR HGB CONC 33.5 g/dL (32.0-36.0); MEAN CORPUSCULAR VOLUME 93.3 fL (79-99); MONOCYTES # (AUTO) 0.7 K/uL (0.1-1.0); MONOCYTES % (AUTO) 9.7 % (3.0-13.0); NEUTROPHILS # (AUTO) 5.2 K/uL (1.8-7.7); NEUTROPHILS % (AUTO) 70.1 % (40.0-77.0); PLATELET COUNT (AUTO) 105 K/uL (130-400); RED BLOOD CELL COUNT(AUTO) 4.64 MIL/uL (4.00-5.50); RED CELL DISTRIBUTION WIDTH 15.6 % (11.0-15.5); WHITE BLOOD COUNT (AUTO) 7.4 K/uL (4.8-10.8)
--- NOTE | 2025-04-24 18:00 | EKG ---
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
[2025-04-24 18:02] LABS: CREATININE 6.9 mg/dL (0.5-1.0); POTASSIUM 5.6 mmol/L (3.5-5.1)
[2025-04-24 18:17] LABS: B-TYPE NATRIURETIC PEPTIDE 2250 pg/mL (0-100)
--- NOTE | 2025-04-24 18:22 | NUR ---
TWO FAILED ATTEMPTS AT STARTING AN INTRAVENOUS ACCESS. PT STATES SHE IS AN EXTREMELY HARD STICK.
--- NOTE | 2025-04-24 18:35 | NUR ---
MIDLINE ORDER TAKEN TO SHINGLE CARRIER PRCIILA JONES
[2025-04-24 18:48] LABS: INR 1.21 (0.85-1.15); PROTHROMBIN TIME 12.6 SEC (9.6-11.6)
[2025-04-24 18:50] LABS: PARTIAL THROMBOPLASTIN TIME 27.9 SEC (26.3-35.5)
--- NOTE | 2025-04-24 18:55 | NUR ---
REPORT ENDORSED TO RHONDA JONES
--- NOTE | 2025-04-24 18:55 | HP ---
[facility] PH[facility] Date of Service: Apr 24, 2025 Time of Service: 18:54 PCP: Zuleika Chi HISTORY OF PRESENT ILLNESS: This is a 49-year-old female, a reliable historian with bilateral eye blindness and past medical history of diabetes, hypertension, hyperlipidemia, end-stage renal disease on hemodialysis, Chronic obstructive pulmonary disease, asthma, on home O2 dependent, rheumatoid arthritis, anxiety and depression who presents to the ED for complaints of severe right back pain started today. Patient reports she was at [facility] when she had an episode of cough and suddenly she developed severe right back pain and decided to come to the ER for evaluation.Patient states she has been having cough on and off for the past 3 months and she already took antibiotic and over the counter cough meds but it comes and goes however she noticed that phlegm production has increased and it is thick she said.Patient uses 2 L/NC at home and she has also nebulizer at home. Patient also mentioned that she has difficulty swallowing. Patient also reports she has a scheduled colonoscopy next Sunday and recently had a liver scan done. Patient states she is on hemodialysis Sunday and Sunday and her crowning inspector is Dr. Dye. Seen and examined patient in the ER who was just finished having a right midline insertion.Patient denies fever,chills,nausea,vomiting,chest pain and palpitation.Patient reports during coughing episode she was short of breath but not anymore as of now she said. Latest vital signs temperature 98.1, heart rate 68, blood pressure 166/95 saturation 95% on 2 L nasal cannula. Labs: Platelet count 105 the rest is unremarkable. Sodium 135, potassium 5.6, chloride 97, BUN 41, creatinine 6.9, GFR seven glucose 189, calcium 8.3 BNP 22 50, troponin 14. ECG result revealed sinus rhythm heart rate 68 with prolonged KS interval. Chest x-ray result revealed cardiomegaly. Right moderate pleural effusion. Possibility of underlying right pneumonia can not be excluded. Right PermCath in place. No pneumothorax. Clear left lung. While in the ER patient received vancomycin IV , Zosyn IV, Zofran 4 mg IV, morphine 4 mg IV, Solu-Medrol 125 mg IV. We will admit patient for further medical management. REVIEW OF SYSTEMS CONSTITUTIONAL: Denies fevers, chills, or night sweats. No unintentional weight loss reported. NEUROLOGICAL: Denies headache, amaurosis fugax, motor weakness, sensory deficit, vertigo/spinning sensation, gait abnormalities, or tremors. ENT: No hearing loss, otalgia, otorrhea, rhinitis, rhinorrhea, hoarseness, or s ore throat. CARDIOVASCULAR: Denies any exertional angina, dyspnea on exertion, orthopnea, paroxysmal nocturnal dyspnea, palpitations, life-threatening arrhythmias, claudication. PULMONARY: Complained of productive cough Denies any shortness of breath hemoptysis, pleuritic chest pain. SLEEP: Denies morning headaches, daytime somnolence or napping. Denies difficulty falling asleep, staying asleep, waking from sleep. Denies knowledge of snoring. GASTROINTESTINAL: Denies any type of dysphagia to either liquids or solids. Denies nausea, vomiting, pyrosis, early satiety, abdominal pain, diarrhea, constipation, or changes in stool consistency or caliber. Denies coffee-ground emesis, hematemesis, hematochezia, or melanotic stools. GENITOURINARY: Denies frequency, urgency, nocturia, hematuria or incontinence (Storage/Irritative symptoms.) Low urinary stream, straining to void, urinary intermittency or hesitancy, splitting of the voiding stream, terminal dribbling. ENDOCRINOLOGIC: Denies polyuria, polydipsia, polyphagia or heat/cold intolerances. HEMATOLOGIC: Denies thrombophilia/previous clots, or coagulopathy/bleeding disorders. ONCOLOGIC: Denies personal history of malignancy. DERMATOLOGIC: Denies rashes or pruritus. PSYCHIATRIC: Denies any suicidal or homicidal ideation. Denies hallucinations. 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 Patient denies alcohol tobacco and recreational ] FAMILY HISTORY: [ Chronic obstructive pulmonary disease, diabetes, cardiovascular disease and asthma ] Coded Allergies: eluxadoline (Unverified Allergy, Unknown, 01/18/18) metoclopramide (Unverified Allergy, Unknown, 03/02/25) rifaximin (Unverified Allergy, Unknown, 01/18/18) PHYSICAL EXAM GENERAL APPEARANCE: The patient is awake, alert, and oriented, in no acute cardiopulmonary distress. NEUROLOGICAL: Cranial nerves II-XII grossly intact. Motor is 5/5 in bilateral upper and lower extremities proximal to distal. No sensory deficits. HEENT: Face is symmetric. Pupils are equal and reactive. Extraocular movements are intact. NECK: Supple. No JVD. No thyromegaly. No submental, submandibular, pre- /postauricular, occipital or supraclavicular lymphadenopathy. CHEST: Normal chest expansion. No Telemetry. LUNGS: Absence of any rales, rhonchi or any wheezing. CARDIOVASCULAR: Regular. S1 and S2 normal. No appreciable rubs, murmurs or gallops. ABDOMEN: Soft, nontender, and nondistended. There is no rebound, voluntary guarding, or rigidity. : Deferred. No Owesn. EXTREMITIES: Non-edematous and not cyanotic. No clubbing. Good capillary refill. SKIN: No skin breakdown. Vital Sign (Last 24 Hours) 04/24/25 04/24/25 13:20 18:23 Temp 98.1 Pulse 76 Resp 12 B/P (MAP) 156/92 Pulse Ox 96 O2 Delivery Nasal Cannula* O2 Flow Rate 2 FiO2 28 LABS: Laboratory: Test 04/24/25 17:40 Range/Units White Blood Count 7.4 4.8-10.8 K/uL Red Blood Count 4.64 4.00-5.50 MIL/uL Hemoglobin 14.5 12.0-16.0 g/dL Hematocrit 43.3 36-48 % Mean Corpuscular Volume 93.3 79-99 fL Mean Corpuscular Hemoglobin 31.3 27.0-33.0 pg Mean Corpuscular Hemoglobin Concent 33.5 32.0-36.0 g/dL Red Cell Distribution Width 15.6 H 11.0-15.5 % Platelet Count 105 L 130-400 K/uL Mean Platelet Volume 9.9 7.5-10.5 fL Immature Granulocyte % (Auto) 0.1 0-1 % Neutrophils (%) (Auto) 70.1 40.0-77.0 % Lymphocytes (%) (Auto) 17.3 L 21.0-51.0 % Monocytes (%) (Auto) 9.7 3.0-13.0 % Eosinophils (%) (Auto) 1.6 0.0-8.0 % Basophils (%) (Auto) 1.2 0.0-5.0 % Neutrophils # (Auto) 5.2 1.8-7.7 K/uL Lymphocytes # (Auto) 1.3 1.0-4.8 K/uL Monocytes # (Auto) 0.7 0.1-1.0 K/uL Eosinophils # (Auto) 0.12 0.00-0.70 K/uL Basophils # (Auto) 0.09 0.00-0.20 K/uL Absolute Immature Granulocyte (auto 0.01 0-1 K/uL Nucleated Red Blood Cells 0.0 0.0-0.19 % Prothrombin Time 12.6 H 9.6-11.6 SEC Prothromb Time International Ratio 1.21 H 0.85-1.15 Activated Partial Thromboplast Time 27.9 26.3-35.5 SEC Sodium Level 135 L 136-145 mmol/L Potassium Level 5.6 H 3.5-5.1 mmol/L Chloride Level 97 L 101-111 mmol/L Carbon Dioxide Level 27 21-32 mmol/L Blood Urea Nitrogen 41 H 7-18 mg/dL Creatinine 6.9 H 0.5-1.0 mg/dL Glomerular Filtration Rate Calc 7 >90 mL/min Random Glucose 189 H 70-105 mg/dL Total Calcium 8.3 L 8.5-10.1 mg/dL Total Creatine Kinase 113 21-232 U/L Troponin I High Sensitivity 14.6 4-50 ng/L B-Type Natriuretic Peptide 2250 H 0-100 pg/mL DIAGNOSTICS / RADIOLOGY: [ ] ASSESSMENT: Possible right lower lobe pneumonia POA Chronic respiratory failure on home O2 dependence POA Hypertension POA Acute thrombocytopenia POA Hyperkalemia POA End-stage renal disease on hemodialysis POA Uncontrolled diabetes POA Acute CHF POA Dysphagia POA PLAN: We will admit patient in PCCU We will start on renal dialysis diet We will request bedside swallow eval We will continue Zosyn IV and vancomycin IV for broad-spectrum coverage We will start on Famotidine 20 mg p.o. q.48h for GI prophylaxis We will start on insulin sliding scale AC & HS with hypoglycemia protocol We will add prn medication for fever,pain,cough and constipation We will seek pulmonology consultation We will seek Nephrology consultation We will obtain echocardiogram Will reconcile home meds once medlist available Will check labs in am Further orders to follow depending on above results Case discussed with attending physician and came up with above treatment and plan of care. ADVANCED CARE PLANNING 1. Which of the following were discussed? Hospice Care - No Therapeutic options - Yes Advance Directives - No Other discussions - 2. Discussed with who? Patient 3. Voluntary nature of this service was explained to the patient? Yes 4. Amount of time spent - __25 5. Reviewed by Physician? (if this service was performed by NPP) Yes Patient seen and examined by me. Agree with note by INDUSTRIAL CHEMISTRY TEACHER SEE ADDITIONAL ORDERS PER CHART DISCUSSED WITH NURSING STAFF PERI ARTHUR [facility] Apr 24, 2025 18:55
--- NOTE | 2025-04-24 19:20 | NUR ---
PICC NURSE AT BEDSIDE FOR PLACEMENT OF MIDLINE.
[2025-04-24] MEDS: ZOSYN 3.375GM +NS 50ML IV ONE (19:57)
[2025-04-24] MEDS ORDERED: NITROGLYCERIN 0.4 MG SL TAB SL PRN (20:30)
[2025-04-24] MEDS ORDERED: ondanSETRON 4MG INJ IV PRN (20:30)
[2025-04-24] MEDS ORDERED: LACTULOSE 20 GM/30 ML UDCUP PO PRN (20:30)
[2025-04-24] MEDS ORDERED: guaiFENesin-DM 200/20MG 10ML PO PRN (20:30)
[2025-04-24] MEDS ORDERED: GLUCAGON 1MG KIT 1 MG ML IM PRN (20:30)
[2025-04-24] MEDS ORDERED: hydrALAZine 20MG/ML VIAL IV PRN (20:30)
[2025-04-24] MEDS ORDERED: DEXTROSE 50%-WATER 50 ML DISP.SYRIN IV PRN (20:30)
[2025-04-24] MEDS ORDERED: VANCOMYCIN 1G/250ML KIT 250 ML IV SCH (20:30)
[2025-04-24] MEDS ORDERED: VANCOMYCIN PROTOCOL PER PHARMACY IV SCH (21:00)
[2025-04-24] MEDS: INSULIN humuLIN R 100 UNIT/ML 3ML SQ SCH (22:23)
[2025-04-24] MEDS: VANCOMYCIN 1.75 GM/250 ML BAG 250 ML IV ONE (22:23)
[2025-04-24 22:54] VITALS: PULSE 72; RESP 20; O2SAT 92
[2025-04-24 22:56] VITALS: PULSE 71; RESP 22
[2025-04-24] MEDS: acetaMINOPHEN 325 MG TAB PO PRN (23:43)
[2025-04-25] VITALS (32 sets, daily range): BP systolic 110–189; BP diastolic 53–112; PULSE 73–94; RESP 16–22; TEMP 97.3–98.2; O2SAT 93–95
[2025-04-25] MEDS: IpraTROPium/alBUTERol SULFATE 3 ML SOLUTION IH SCH (02:39)
[2025-04-25 03:30] LABS: BASOPHILS # (AUTO) 0.01 K/uL (0.00-0.20); BASOPHILS % (AUTO) 0.3 % (0.0-5.0); EOSINOPHILS # (AUTO) 0.01 K/uL (0.00-0.70); EOSINOPHILS % (AUTO) 0.3 % (0.0-8.0); HEMATOCRIT 42.6 % (36-48); IMMATURE GRANULOCYTE ABSOLUTE 0.01 K/uL (0-1); LYMPHOCYTES # (AUTO) 0.6 K/uL (1.0-4.8); LYMPHOCYTES % (AUTO) 14.6 % (21.0-51.0); MEAN CORPUSCULAR HGB CONC 33.8 g/dL (32.0-36.0); MEAN CORPUSCULAR VOLUME 91.8 fL (79-99); MONOCYTES # (AUTO) 0.1 K/uL (0.1-1.0); NEUTROPHILS # (AUTO) 3.2 K/uL (1.8-7.7); NEUTROPHILS % (AUTO) 82.5 % (40.0-77.0); PLATELET COUNT (AUTO) 104 K/uL (130-400); RED BLOOD CELL COUNT(AUTO) 4.64 MIL/uL (4.00-5.50); RED CELL DISTRIBUTION WIDTH 15.5 % (11.0-15.5); WHITE BLOOD COUNT (AUTO) 3.9 K/uL (4.8-10.8)
[2025-04-25 03:43] LABS: ALBUMIN 3.5 g/dL (3.5-5.0); BILIRUBIN,TOTAL 1.8 mg/dL (0.2-1.0); MAGNESIUM 2.6 mg/dL (1.80-2.40); TOTAL PROTEIN, SERUM 6.9 g/dL (6.0-8.3)
[2025-04-25 03:44] LABS: POTASSIUM 6.7 mmol/L (3.5-5.1)
[2025-04-25] MEDS: NA ZIRCON CYCLOSIL(LOKELMA 10GM) PO ONE (04:32)
[2025-04-25] MEDS: ALBUTEROL 0.042% 1.25MG/3ML IH ONE (04:39)
[2025-04-25] MEDS: 0.9%NACL 1000ML 1,000 ML IV SCH (08:44)
[2025-04-25] MEDS: FAMOTIDINE 20MG TAB PO SCH (09:00)
[2025-04-25] MEDS: LoSARTan 50 MG TABLET PO SCH (09:30)
[2025-04-25] MEDS ORDERED: HEParin 5,000 UNIT VIAL IRRIG SCH (10:00)
--- NOTE | 2025-04-25 10:38 | CONS ---
[facility] CONSULTATION NOTE Date Patient Seen: Apr 25, 2025 Time of Visit: 10:27 Supervising Physician: Dr Morgan Reason for Consultation: AHRF, pneumonia] Primary Care Physician: Zuleika Chi Outpatient Specialists: [ ] Inpatient Consults: HAN PROBLEM LIST: Acute on chronic hypoxemic respiratory failure POA - on Home 02 @ 2L Pulmonary Edema ESRD in need of HD Non compliant with HD Suspect right lower lobe pneumonia POA Essential Hypertension Acute thrombocytopenia POA Hyperkalemia POA End-stage renal disease on hemodialysis POA Uncontrolled Type 2 diabetes w/ hyperglycemia POA Acute on chronic combined CHF exacerbation POA Stage I diastolic dysfunction LVEF 40% (2D echo 09/2020) Dysphagia POA Plan Summary: Supplemental oxygen as needed Patient is at her home baseline at 2 L nasal cannula Duo nebs as needed Patient has been advised of the importance of being compliant with hemodialysis treatment 1.2 L fluid restriction Strict intakes and outputs Daily weights Fluid challenge removal with hemodialysis Chest x-ray post hemodialysis to evaluate for suspected pneumonia Continue antibiotics for now HPI: This is a 49-year-old female, a reliable historian with bilateral eye blindness and past medical history of diabetes, hypertension, hyperlipidemia, end-stage renal disease on hemodialysis, Chronic obstructive pulmonary disease, asthma, on home O2 dependent, rheumatoid arthritis, anxiety and depression who presents to the ED for complaints of severe right back pain started today. Patient reports she was at adult daycare center when she had an episode of cough and suddenly she developed severe right back pain and decided to come to the ER for evaluation.Patient states she has been having cough on and off for the past 3 months and she already took antibiotic and over the counter cough meds but it comes and goes however she noticed that phlegm production has increased and it is thick she said.Patient uses 2 L/NC at home and she has also nebulizer at home. Patient also mentioned that she has difficulty swallowing. Patient also reports she has a scheduled colonoscopy next Sunday and recently had a liver scan done. Patient states she is on hemodialysis Sunday and Sunday and her scouring train operator chief is Dr. Dye. Patient is evaluated at the bedside. Patient appears to be weak, deconditioned and continues on artificial life support via hemodialysis treatment. Patient tolerating well thus far. Patient continues on 2 L via nasal cannula which is her home baseline. Patient admits she missed hemodialysis treatment this past week. Had a long discussion regarding the importance of being compliance with hemodialysis to help prevent worsening disease. Patient verbalized understanding. Recommend to continue hemodialysis as per Nephrology. Repeat a chest x-ray post HD to evaluate suspected pneumonia. Continue antibiotics for now. Obtain a 2D echo as previous showed an EF of 40%. Outpatient follow up in Pulmonary Clinic once discharged. We will continue to follow with you. PAST MEDICAL HX: see above PAST SURGICAL HX: noncontributory SOCIAL HISTORY: No tobacco, ETOH, or illicit drug use Coded Allergies: eluxadoline (Unverified Allergy, Unknown, 01/18/18) metoclopramide (Unverified Allergy, Unknown, 03/02/25) rifaximin (Unverified Allergy, Unknown, 01/18/18) REVIEW OF SYSTEMS: 12 point ROS reviewed with patient. Pertinent positives mentioned above. Otherwise negative. PHYSICAL EXAM: GENERAL: alert, weak, awake oriented x 3 HEENT: EOMI, Sclera non icteric, moist mucosa NECK: Supple, no JVD, trachea midline LUNGS: Decrease right breath sounds. No wheezes HEART: Regular rate and rhythm. Normal S1 and S2, without murmurs ABD: Abdomen soft, nontender. Bowel sounds present EXT: No clubbing cyanosis or edema NEURO: Alert and oriented to person, follows commands Vital Signs (last 8hr) Date Time Temp Pulse Resp B/P (MAP) Pulse Ox O2 Delivery O2 Flow Rate FiO2 04/25/25 10:17 88 18 04/25/25 10:17 88 18 N/Cannula Low lpm 2.0 04/25/25 10:15 88 16 169/95 Nasal Cannula 2.0 04/25/25 10:00 89 16 189/94 Nasal Cannula 2.0 04/25/25 09:45 89 16 189/106 Nasal Cannula 2.0 04/25/25 09:30 88 16 188/101 Nasal Cannula 2.0 04/25/25 09:15 90 16 182/96 Nasal Cannula 2.0 04/25/25 09:00 85 16 179/103 Nasal Cannula 2.0 04/25/25 08:45 87 16 186/112 Nasal Cannula 2.0 04/25/25 08:35 97.3 87 16 186/103 Nasal Cannula 2.0 04/25/25 08:08 97.3 87 16 181/112 Nasal Cannula 2.0 04/25/25 07:15 97.5 82 17 160/82 94 04/25/25 06:31 76 18 N/Cannula Low lpm 2.0 04/25/25 06:28 76 18 04/25/25 04:40 76 21 04/25/25 04:00 98.2 79 18 140/70 94 Nasal Cannula 2.0 LABS: Hematology Labs: Test 04/25/25 03:17 Range/Units White Blood Count 3.9 #L 4.8-10.8 K/uL Red Blood Count 4.64 4.00-5.50 MIL/uL Hemoglobin 14.4 12.0-16.0 g/dL Hematocrit 42.6 36-48 % Mean Corpuscular Volume 91.8 79-99 fL Mean Corpuscular Hemoglobin 31.0 27.0-33.0 pg Mean Corpuscular Hemoglobin Concent 33.8 32.0-36.0 g/dL Red Cell Distribution Width 15.5 11.0-15.5 % Platelet Count 104 L 130-400 K/uL Mean Platelet Volume 10.8 H 7.5-10.5 fL Immature Granulocyte % (Auto) 0.3 0-1 % Neutrophils (%) (Auto) 82.5 H 40.0-77.0 % Lymphocytes (%) (Auto) 14.6 L 21.0-51.0 % Monocytes (%) (Auto) 2.0 L 3.0-13.0 % Eosinophils (%) (Auto) 0.3 0.0-8.0 % Basophils (%) (Auto) 0.3 0.0-5.0 % Neutrophils # (Auto) 3.2 1.8-7.7 K/uL Lymphocytes # (Auto) 0.6 L 1.0-4.8 K/uL Monocytes # (Auto) 0.1 0.1-1.0 K/uL Eosinophils # (Auto) 0.01 0.00-0.70 K/uL Basophils # (Auto) 0.01 0.00-0.20 K/uL Absolute Immature Granulocyte (auto 0.01 0-1 K/uL Nucleated Red Blood Cells 0.0 0.0-0.19 % Chemistry Labs: Test 04/25/25 07:28 04/25/25 05:30 04/25/25 03:17 04/24/25 17:40 Range/Units Potassium Level 6.3 *H 3.5-5.1 mmol/L Whole Blood Glucose 197 H 70-110 MG/DL Sodium Level 133 L 136-145 mmol/L Chloride Level 97 L 101-111 mmol/L Carbon Dioxide Level 23 21-32 mmol/L Blood Urea Nitrogen 46 H 7-18 mg/dL Creatinine 7.0 H 0.5-1.0 mg/dL Glomerular Filtration Rate Calc 7 >90 mL/min Random Glucose 216 H 70-105 mg/dL Total Calcium 8.0 L 8.5-10.1 mg/dL Magnesium Level 2.60 H 1.80-2.40 mg/dL Total Bilirubin 1.8 H 0.2-1.0 mg/dL Aspartate Amino Transf (AST/SGOT) 44 H 10-37 U/L Alanine Aminotransferase (ALT/SGPT) 38 12-78 U/L Alkaline Phosphatase 279 H 50-136 U/L Total Protein 6.9 6.0-8.3 g/dL Albumin 3.5 3.5-5.0 g/dL Total Creatine Kinase 113 21-232 U/L Troponin I High Sensitivity 14.6 4-50 ng/L B-Type Natriuretic Peptide 2250 H 0-100 pg/mL Coagulation Labs: Test 04/24/25 17:40 Range/Units Prothrombin Time 12.6 H 9.6-11.6 SEC Prothromb Time International Ratio 1.21 H 0.85-1.15 Activated Partial Thromboplast Time 27.9 26.3-35.5 SEC DIAGNOSTICS / RADIOLOGY RESULTS: PATIENT: JAYDEN GONZALES MR#: [id number] : 1975 SEX: F AGE: 49 LOCATION: [facility] ORDER 1423 STATUS: [facility] REPORT#: [id number] SERVICE 1418 REASON: chronic cough ORDERING PHYSICIAN: YUE MANRIQUE MD PROCEDURE: CXR1VW - CHEST 1VW Exam Type: CHEST 1VW Clinical Information: chronic cough Comparison: None Findings and impression: Cardiomegaly. Right moderate pleural effusion. Possibility of underlying right pneumonia cannot be excluded. Right permacath in place. No pneumothorax. Clear left lung. Follow-up is advised. DICTATED BY: FLAVIA ROGERS MD DATE: 04/24/251456 ELECTRONICALLY SIGNED BY: FLAVIA ROGERS MD DATE: 04/24/25 4514 PLAN NEURO: Minimize central acting medications as possible. Maintain fall precautions, adequate lighting during the day PULMONARY: Supplemental 02 as needed. Maintain aspiration precautions at all times Repeat chest x-ray post HD to evaluate suspected pneumonia CARDIOVASCULAR: Follow hemodynamics. Vital signs per facility protocol GI & NUTRITION: Continue with nutritional support. Continue stool softeners and laxatives as needed. KIDNEYS & ELECTROLYTES: Strict monitoring of intake, output and overall fluid balance. Avoid nephrotoxic medications to the extent possible. Medications to be dosed according to renal function. Monitor electrolytes and replace as needed HD as per Nephrology Patient advised to be 100% compliance with hemodialysis ENDOCRINE: Maintain blood glucose between 100-180 at all times. Hypoglycemia protocol in place INFECTIOUS DISEASE: Trend temperature, WBC and procalcitonin level Follow cultures, deescalate antibiotics as soon as possible. Panculture if new onset fever ONCOLOGY/HEMATOLOGY/COAGULATION: Monitor for s/s of bleeding Monitor hemoglobin, coagulation studies as needed SKIN: Pressure ulcer prevention per facility protocol Specialty mattress ORTHO/REHAB: Continue PT/OT Prophylaxis: Continue GI and DVT prophylaxis Code Status: Full Resuscitation Disposition: As per attending ATTESTATION BY PHYSICIAN I have evaluated the patient chart, medical records, and spoke with appropriate staff. I reviewed the documentation, medical decision making, and treatment plan as noted by the mid-level provider above. I agree with the findings and plan of care. Makro Morgan MD, ECTOR N NP Apr 25, 2025 10:38
--- NOTE | 2025-04-25 11:15 | PN ---
[facility] PROGRESS NOTE Date of Service: Apr 25, 2025 Time of Service: 11:11 SUBJECTIVE: This is a 49-year-old female, a reliable historian with bilateral eye blindness and past medical history of diabetes, hypertension, hyperlipidemia, end-stage renal disease on hemodialysis, Chronic obstructive pulmonary disease, asthma, on home O2 dependent, rheumatoid arthritis, anxiety and depression who presented to the ED April 24, 2025 for complaints of severe right back pain. [facility] of cough and suddenly she developed severe right back pain and decided to come to the ER for evaluation. Patient stated she has been having cough on and off for the past 3 months and she already took antibiotic and over the counter cough medications but it comes and goes however she noticed that phlegm production has increased and it is thick she said. Patient uses 2 L/NC at home and she has also nebulizer at home. Patient also mentioned that she has difficulty swallowing. Patient also reported she has a scheduled colonoscopy next Sunday and recently had a liver scan done. Patient stated she is on hemodialysis Sunday and Sunday and her edge glue machine tender is Dr. Dye. Seen and examined patient in the ER who was just finished having a right midline insertion In the ER Latest vital signs temperature 98.1, heart rate 68, blood pressure 16 6/95 saturation 95% on 2 L nasal cannula. In the ER Labs: Platelet count 105 the rest is unremarkable. Sodium 135, potassium 5.6, chloride 97, BUN 41, creatinine 6.9, GFR seven glucose 189, calcium 8.3 BNP 2250, troponin 14. ECG result revealed sinus rhythm heart rate 68 with prolonged WA interval. Chest x-ray result revealed cardiomegaly. Right moderate pleural effusion. Possibility of underlying right pneumonia can not be excluded. Right PermCath in place. No pneumothorax. Clear left lung. While in the ER patient received vancomycin IV , Zosyn IV, Zofran 4 mg IV, morphine 4 mg IV, Solu-Medrol 125 mg IV. Patient admitted for further evaluation and medical management. 04/25 patient is seen and examined at bedside, case discussed with the RN, no acute events overnight, patient alert oriented x3, getting IV antibiotics, getting hemodialysis during my visit, BP 150/75, afebrile, WBC of 3.9. Latest potassium level 6.3. REVIEW OF SYSTEMS CONSTITUTIONAL: Denies fevers, chills, or night sweats. No unintentional weight loss reported. NEUROLOGICAL: Denies headache, amaurosis fugax, motor weakness, sensory deficit, vertigo/spinning sensation, gait abnormalities, or tremors. ENT: No hearing loss, otalgia, otorrhea, rhinitis, rhinorrhea, hoarseness, or sore throat. CARDIOVASCULAR: Denies any exertional angina, dyspnea on exertion, orthopnea, paroxysmal nocturnal dyspnea, palpitations, life-threatening arrhythmias, claudication. PULMONARY: Complained of productive cough Denies any shortness of breath hemoptysis, pleuritic chest pain. SLEEP: Denies morning headaches, daytime somnolence or napping. Denies difficulty falling asleep, staying asleep, waking from sleep. Denies knowledge of snoring. GASTROINTESTINAL: Denies any type of dysphagia to either liquids or solids. Denies nausea, vomiting, pyrosis, early satiety, abdominal pain, diarrhea, constipation, or changes in stool consistency or caliber. Denies coffee-ground emesis, hematemesis, hematochezia, or melanotic stools. GENITOURINARY: Denies frequency, urgency, nocturia, hematuria or incontinence (Storage/Irritative symptoms.) Low urinary stream, straining to void, urinary intermittency or hesitancy, splitting of the voiding stream, terminal dribbling. ENDOCRINOLOGIC: Denies polyuria, polydipsia, polyphagia or heat/cold intolerances. HEMATOLOGIC: Denies thrombophilia/previous clots, or coagulopathy/bleeding disorders. ONCOLOGIC: Denies personal history of malignancy. DERMATOLOGIC: Denies rashes or pruritus. PSYCHIATRIC: Denies any suicidal or homicidal ideation. Denies hallucinations. PHYSICAL EXAM GENERAL APPEARANCE: The patient is awake, alert, and oriented, in no acute cardiopulmonary distress. NEUROLOGICAL: Cranial nerves II-XII grossly intact. Motor is 5/5 in bilateral upper and lower extremities proximal to distal. No sensory deficits. HEENT: Face is symmetric. Pupils are equal and reactive. Extraocular movements are intact. NECK: Supple. No JVD. No thyromegaly. No submental, submandibular, pre- /postauricular, occipital or supraclavicular lymphadenopathy. CHEST: Normal chest expansion. No Telemetry. LUNGS: Absence of any rales, rhonchi or any wheezing. CARDIOVASCULAR: Regular. S1 and S2 normal. No appreciable rubs, murmurs or gallops. ABDOMEN: Soft, nontender, and nondistended. There is no rebound, voluntary guarding, or rigidity. : Deferred. No Owens. EXTREMITIES: Non-edematous and not cyanotic. No clubbing. Good capillary refill. SKIN: No skin breakdown. Vital Signs (last 8hr) Date Time Temp Pulse Resp B/P (MAP) Pulse Ox O2 Delivery O2 Flow Rate FiO2 04/25/25 11:00 90 16 150/75 Nasal Cannula 2.0 04/25/25 10:45 92 16 167/88 Nasal Cannula 2.0 04/25/25 10:30 89 16 176/90 Nasal Cannula 2.0 04/25/25 10:17 88 18 04/25/25 10:17 88 18 N/Cannula Low lpm 2.0 04/25/25 10:15 88 16 169/95 Nasal Cannula 2.0 04/25/25 10:00 89 16 189/94 Nasal Cannula 2.0 04/25/25 09:45 89 16 189/106 Nasal Cannula 2.0 04/25/25 09:30 88 16 188/101 Nasal Cannula 2.0 04/25/25 09:15 90 16 182/96 Nasal Cannula 2.0 04/25/25 09:00 85 16 179/103 Nasal Cannula 2.0 04/25/25 08:45 87 16 186/112 Nasal Cannula 2.0 04/25/25 08:35 97.3 87 16 186/103 Nasal Cannula 2.0 04/25/25 08:08 97.3 87 16 181/112 Nasal Cannula 2.0 04/25/25 07:15 97.5 82 17 160/82 94 04/25/25 06:31 76 18 N/Cannula Low lpm 2.0 04/25/25 06:28 76 18 04/25/25 04:40 76 21 04/25/25 04:00 98.2 79 18 140/70 94 Nasal Cannula 2.0 LABS: Laboratory: Test 04/25/25 11:05 04/25/25 07:28 04/25/25 03:17 04/24/25 17:40 Range/Units Whole Blood Glucose 185 H 70-110 MG/DL Potassium Level 6.3 *H 3.5-5.1 mmol/L White Blood Count 3.9 #L 4.8-10.8 K/uL Red Blood Count 4.64 4.00-5.50 MIL/uL Hemoglobin 14.4 12.0-16.0 g/dL Hematocrit 42.6 36-48 % Mean Corpuscular Volume 91.8 79-99 fL Mean Corpuscular Hemoglobin 31.0 27.0-33.0 pg Mean Corpuscular Hemoglobin Concent 33.8 32.0-36.0 g/dL Red Cell Distribution Width 15.5 11.0-15.5 % Platelet Count 104 L 130-400 K/uL Mean Platelet Volume 10.8 H 7.5-10.5 fL Immature Granulocyte % (Auto) 0.3 0-1 % Neutrophils (%) (Auto) 82.5 H 40.0-77.0 % Lymphocytes (%) (Auto) 14.6 L 21.0-51.0 % Monocytes (%) (Auto) 2.0 L 3.0-13.0 % Eosinophils (%) (Auto) 0.3 0.0-8.0 % Basophils (%) (Auto) 0.3 0.0-5.0 % Neutrophils # (Auto) 3.2 1.8-7.7 K/uL Lymphocytes # (Auto) 0.6 L 1.0-4.8 K/uL Monocytes # (Auto) 0.1 0.1-1.0 K/uL Eosinophils # (Auto) 0.01 0.00-0.70 K/uL Basophils # (Auto) 0.01 0.00-0.20 K/uL Absolute Immature Granulocyte (auto 0.01 0-1 K/uL Nucleated Red Blood Cells 0.0 0.0-0.19 % Sodium Level 133 L 136-145 mmol/L Chloride Level 97 L 101-111 mmol/L Carbon Dioxide Level 23 21-32 mmol/L Blood Urea Nitrogen 46 H 7-18 mg/dL Creatinine 7.0 H 0.5-1.0 mg/dL Glomerular Filtration Rate Calc 7 >90 mL/min Random Glucose 216 H 70-105 mg/dL Total Calcium 8.0 L 8.5-10.1 mg/dL Magnesium Level 2.60 H 1.80-2.40 mg/dL Total Bilirubin 1.8 H 0.2-1.0 mg/dL Aspartate Amino Transf (AST/SGOT) 44 H 10-37 U/L Alanine Aminotransferase (ALT/SGPT) 38 12-78 U/L Alkaline Phosphatase 279 H 50-136 U/L Total Protein 6.9 6.0-8.3 g/dL Albumin 3.5 3.5-5.0 g/dL Prothrombin Time 12.6 H 9.6-11.6 SEC Prothromb Time International Ratio 1.21 H 0.85-1.15 Activated Partial Thromboplast Time 27.9 26.3-35.5 SEC Total Creatine Kinase 113 21-232 U/L Troponin I High Sensitivity 14.6 4-50 ng/L B-Type Natriuretic Peptide 2250 H 0-100 pg/mL Current Medications Medications (Trade) Dose Ordered Sig/Wong Route PRN Reason Start Time Stop Time Status Last Admin Dose Admin Acetaminophen (TYLenol 325MG TAB) 650 mg Q4H PRN PO MILD PAIN (1-3) 04/24/25 20:30 05/24/25 20:29 04/24/25 23:43 650 MG Acetaminophen (TYLenol 325MG TAB) 650 mg Q6H PRN PO TEMPERATURE GREATER THAN 101.5 04/24/25 20:30 05/24/25 20:29 Albuterol (DUOneb) 1 udvial [id number] IH 04/24/25 22:00 05/24/25 21:59 04/25/25 10:16 1 UDVIAL Alprazolam (XANax 0.25MG) 0.25 mg DAILY PRN PO ANXIETY/AGITATION 04/25/25 09:30 05/25/25 09:29 Citalopram Hydrobromide (CeleXA 20MG TAB) 10 mg DAILY PO 04/26/25 09:00 05/26/25 08:59 Dextrose (D50w) 50 ml AD PRN IV HYPOGLYCEMIA PROTOCOL 04/24/25 20:30 05/24/25 20:29 Famotidine (Pepcid 20mg Tab) 20 mg Q48H PO 04/25/25 09:00 05/25/25 08:59 Glucagon (Glucagon 1mg Kit) 1 mg AD PRN IM HYPOGLYCEMIA PROTOCOL 04/24/25 20:30 05/24/25 20:29 Guaifenesin/ Dextromethorphan (RobiTUSSin DM 200/20MG 10ML) 10 ml Q4H PRN PO COUGH 04/24/25 20:30 05/24/25 20:29 Heparin Sodium (Porcine) (HEParin 5,000 UNIT VIAL) 10,000 unit AD IRRIG 04/25/25 10:00 05/25/25 09:59 Hydralazine HCl (APRESOLine 20MG INJ) 10 mg Q6H PRN IV For:SBP above 160;DBP above 90 04/24/25 20:30 05/24/25 20:29 Insulin Glargine (LANtus 100 UNITS/ML 10 ML VIAL) 16 units HS SQ 04/25/25 21:00 05/25/25 20:59 Insulin Human Regular (humuLIN R 100 UNIT/ML 3ML) INSULIN SLIDING SCAL... ACHS SQ 04/24/25 21:00 05/24/25 20:59 04/25/25 06:48 2 UNIT Lactulose (Constulose 20gm/ 30ml Udcup) 20 gm BID PRN PO CONSTIPATION 04/24/25 20:30 05/24/25 20:29 Losartan Potassium (CozAAR 50 mg TAB) 50 mg BID PO 04/25/25 09:30 05/25/25 09:29 Nitroglycerin (Nitrostat) 0.4 mg PROTOCOL PRN SL CHEST PAIN 04/24/25 20:30 05/24/25 20:29 Ondansetron HCl (zoFRAN 4MG INJ) 4 mg Q6H PRN IV NAUSEA/VOMITING 04/24/25 20:30 05/24/25 20:29 Piperacillin Sod/ Tazobactam Sod 50 ml @ 12.5 mls/hr Q12H IV 04/25/25 08:00 05/05/25 07:59 Sevelamer HCl (RENAgel 800 MG TAB) 800 mg TIDMEALS PO 04/25/25 12:00 05/25/25 11:59 Sodium Chloride 1,000 ml @ 0 mls/hr ONCE IV 04/25/25 08:00 05/25/25 07:59 04/25/25 08:44 333 MLS/HR Vancomycin HCl 250 ml @ 125 mls/hr ONCE IV 04/24/25 20:30 04/24/25 20:41 DC Vancomycin HCl (Vancomycin 750mg) 750 mg TTHSPHD IVPB 04/25/25 16:00 05/05/25 15:59 Vancomycin HCl (Vancomycin Protocol) 1 each AD IV 04/24/25 21:00 05/08/25 20:59 Vitamin B Complex/ Vit C/Folic Acid (Nephrovite Tablet) 1 cap DAILY PO 04/26/25 09:00 05/26/25 08:59 DIAGNOSTICS / RADIOLOGY: [ ] ASSESSMENT: Possible right lower lobe pneumonia POA Chronic respiratory failure on home O2 dependence POA Hypertension POA Acute thrombocytopenia POA Hyperkalemia POA End-stage renal disease on hemodialysis POA Uncontrolled diabetes POA Acute CHF POA Dysphagia POA PLAN: Patient remains admitted to the PCU Nephrology consultation requested, continue hemodialysis Pulmonary consultation requested, we will follow input and recommendation Serology to include influenza, rapid strep and SARS antigen, follow sputum cultures. Continue the patient on broad-spectrum IV antibiotics NEURO: Minimize central acting medications as possible. Fall Precautions. Well lighted room through the day and minimize interruptions through the night to prevent acute delirium. PULMONARY: Supplemental 02 as needed BiPAP as necessary, for respiratory distress Titrate Fio2 to keep Spo2 > or = 90% DuoNebs and CPT as needed IS hourly while awake for pulmonary hygiene prn Out of bed to chair as tolerated Maintain aspiration precautions at all times CARDIOVASCULAR: Follow hemodynamics. Vital signs per facility protocol GI & NUTRITION: Continue nutritional support Aspirations precautions Prokinetic agents and laxatives as needed KIDNEYS & ELECTROLYTES: Strict monitoring of intake and output Daily weights Avoid nephrotoxic agents Monitor electrolytes and replace as needed Goal urine output of 30mL/hr or 0.5mL/kg/hr Medications to be dosed according to renal function. Avoid contrast if possible ENDOCRINE: Maintain blood glucose between 100-180 at all times. Insulin sliding scale for blood glucose management Hypoglycemia and hyperglycemia protocol in place INFECTIOUS DISEASE: Trend temperature, WBC and procalcitonin level Follow cultures, deescalate antibiotics as soon as possible. Panculture if new onset fever HEMATOLOGY & COAGULATION: Monitor H&H. Keep Hgb > 7 Transfuse 1 unit of PRBC for Hgb < 7 Transfuse 1 pack of platelets of platelets < 20, 000 Watch for any signs and symptoms of bleeding SKIN: Pressure ulcer prevention per facility protocol Specialty mattress as needed ORTHO/REHAB Continue PT/OT PRN: MEDICATIONS Tylenol 650 mg po every 4 hrs for fever zofran 4 mg IV every 6 hrs for n/v Hydralazine 5 mg IV every 4 hrs systolic pressure > 160 bowel regiment: lactulose 20 gm PO BID PRN constipation Supportive measures: Continue GI and DVT prophylaxis Disposition: Pending improvement in clinical condition All questions answered time spent: > 35 min EVENS KOLB MD Apr 25, 2025 11:15
--- NOTE | 2025-04-25 12:34 | NUR ---
DCP: HOME Pt currently lives with son Zane Stuart [phone]. Pt does not report any insecurities with food, halfway, and/or utilities. Pt has a wheelchair, walker, cane, shower chair, nebulizer and O2 at home. O2 is serviced through [facility]. Pt goes to dialysis with [facility] on Sunday, , Sunday. Pt has a provider that goes 32.15 hrs a week to assist with ADLs, home management, and meals. Pt also has respite provider that goes from 7:15-10:[address] Alon To and uses [facility] for any RX needs. At [place] pt will go home and family will assist with transportation Addendum: 04/25/25 at 1237 by SULEIMAN RESTREPO SS Amended: Links added.
[2025-04-25] MEDS: sevELAMer HCL 800 MG TABLET PO SCH (12:40)
[2025-04-25] MEDS: ZOSYN 3.375GM+NS 50ML 50 ML IV SCH (12:40)
[2025-04-25] MEDS: ALPRAZolam 0.25 MG TABLET PO PRN (12:58)
--- NOTE | 2025-04-25 15:02 | CONS ---
REFERRING PHYSICIAN: Wilson Hutchison MD REASON FOR CONSULTATION: Hyperkalemia and ESRD. HISTORY OF PRESENT ILLNESS: A 49-year-old female with history of diabetes mellitus and hypertension. She has a history of end-stage renal disease, on dialysis 3 times per week. The patient presented to the hospital with complaints of significant back pain. The patient had been having productive cough as an outpatient. The patient was started on antibiotics. In the Emergency Room, the patient was found to have significant electrolyte abnormalities including a potassium of 6.7 mmol/L, and the patient is being seen for urgent dialysis. The patient states she did receive her dialysis on 04/23/2025 in the outpatient setting. PAST MEDICAL HISTORY: Diabetes mellitus, diabetic retinopathy, hypertension, COPD, ESRD. PAST SURGICAL HISTORY: AV access, . SOCIAL HISTORY: She lives independently. There is no active tobacco use. FAMILY HISTORY: There is no renal disease in the family. MEDICATIONS: Noted. REVIEW OF SYSTEMS: GENERAL: She is feeling weak and tired. HEENT: No change in vision. No change in hearing. No nasal discharge. CARDIOVASCULAR: There is no current chest pain or palpitations. PULMONARY: She has chronic shortness of breath. GASTROINTESTINAL: The patient is tolerating a diet. MUSCULOSKELETAL: Complaints of weakness. NEUROLOGIC: No history of seizures or focal deficit. PSYCHIATRIC: No history of hallucinations or psychosis. ENDOCRINE: Diabetes mellitus. No history of thyroid disease. HEME: History of anemia. No history of malignancy. PHYSICAL EXAMINATION: VITAL SIGNS: Blood pressure 150/75, pulse in the 90s, afebrile. GENERAL: She is a chronically ill female, lying in bed in the medical floor. HEENT: Head is atraumatic. Pupils equal, roving to light. Oropharynx is without exudate. Nares clear. NECK: There is no JVP. There is no thyromegaly. No mass. CARDIOVASCULAR: Regular. There is no S3 or S4 gallop. LUNGS: Coarse with equal thoracic movement. ABDOMEN: Soft, nondistended, nontender. EXTREMITIES: Reveal no clubbing, no cyanosis. NEUROLOGICAL: She is awake. She is alert. She is oriented. SKIN: Reveals no rash or nodules. BACK: There is no CVA tenderness. No back deformities. LABORATORY DATA: Sodium 133, potassium 6.7, BUN 46, creatinine is 7, calcium is 8. Hemoglobin 14, hematocrit 42, white cell count is 4000. IMPRESSION: * Hyperkalemia. * Diabetes mellitus. * Hypertension. * ESRD. PLAN: The patient presents with symptomatic hyperkalemia. The patient will receive urgent dialysis on the day of this consultation and we will continue to monitor the chemistries closely. The patient has been counseled in regards to her compliance including renal diet. All labs can be repeated in the morning. We will obtain a phosphorus level in the a.m. as the patient will need to be resumed on her phosphate binders. No need for Epogen at this time and we will continue to follow closely. The patient and family with multiple questions, all of which were answered. TID: [id number] RECEIPT: [id number]
--- NOTE | 2025-04-25 15:07 | PN ---
DIALYSIS NOTE SUBJECTIVE: The patient is seen and evaluated, on hemodialysis, prescription noted. OBJECTIVE: VITAL SIGNS: Blood pressure 150/75. CARDIOVASCULAR: Regular. LUNGS: Coarse. IMPRESSION: End-stage renal disease. PLAN: The patient will continue with maximal ultrafiltration as blood pressure allows. TID: [id number] RECEIPT: [id number]
[2025-04-25] MEDS: acetaMINOPHEN 325 MG TAB PO PRN (15:54)
[2025-04-25] MEDS: VANCOMYCIN 750MG VIAL IVPB SCH (15:55)
--- NOTE | 2025-04-25 18:48 | NUR ---
RECEIVED PT FROM TELE. AWAKE ALERT ORIENTED X3. DARK GLASSES ON D/T BLINDNESS. IN NO DISTRESS
[2025-04-25] MEDS ORDERED: PHARMACY COMMUNICATION MISC SCH (20:30)
[2025-04-25] MEDS: INSULIN GLARgine 100 UNITS/ML 10 ML VIAL SQ SCH (20:36)
[2025-04-26] VITALS (16 sets, daily range): BP systolic 126–161; BP diastolic 63–99; PULSE 82–95; RESP 12–19; TEMP 97.1–98.3; O2SAT 93–97
[2025-04-26 02:12] LABS: HEPATITIS B SURFACE ANTIGEN Non-Reactive (Nonreactive)
[2025-04-26] MEDS: ZOSYN 3.375GM+NS 50ML 50 ML IV SCH (02:21)
[2025-04-26 04:21] LABS: HEPATITIS B CORE AB TOTAL Non-Reactive (Nonreactive); HEPATITIS B SURFACE ANTIBODY Positive (Reactive)
[2025-04-26 04:41] LABS: HEMATOCRIT 40.7 % (36-48); MEAN CORPUSCULAR HEMOGLOBIN 30.7 pg (27.0-33.0); MEAN CORPUSCULAR HGB CONC 32.9 g/dL (32.0-36.0); MEAN CORPUSCULAR VOLUME 93.3 fL (79-99); RED BLOOD CELL COUNT(AUTO) 4.36 MIL/uL (4.00-5.50); RED CELL DISTRIBUTION WIDTH 15.6 % (11.0-15.5); WHITE BLOOD COUNT (AUTO) 6.2 K/uL (4.8-10.8)
[2025-04-26 05:06] LABS: ALBUMIN 3.1 g/dL (3.5-5.0); BILIRUBIN,TOTAL 1.4 mg/dL (0.2-1.0); MAGNESIUM 2.3 mg/dL (1.80-2.40); PHOSPHORUS 7.4 mg/dL (2.5-4.9); POTASSIUM 4.7 mmol/L (3.5-5.1); TOTAL PROTEIN, SERUM 6.3 g/dL (6.0-8.3)
--- NOTE | 2025-04-26 08:40 | HMCIMG ---
Exam Type: CHEST 1VW Clinical Information: eval pneumonia / right effusion Comparison: None Findings: Pulmonary pattern is as before. No worrisome interval changes have taken place. Impression: Stable exam.
[2025-04-26] MEDS: Vitamin B Complex/Vit C/Folic Acid PO SCH (09:14)
[2025-04-26] MEDS: citaLOPram 20 MG TABLET PO SCH (09:14)
--- NOTE | 2025-04-26 09:41 | PN ---
[facility] PROGRESS NOTE Date of Service: Apr 26, 2025 Time of Service: 09:39 SUBJECTIVE: This is a 49-year-old female, a reliable historian with bilateral eye blindness and past medical history of diabetes, hypertension, hyperlipidemia, end-stage renal disease on hemodialysis, Chronic obstructive pulmonary disease, asthma, on home O2 dependent, rheumatoid arthritis, anxiety and depression who presented to the ED April 24, 2025 for complaints of severe right back pain. Patient reported [facility] when she had an episode of cough and suddenly she developed severe right back pain and decided to come to the ER for evaluation. Patient stated she has been having cough on and off for the past 3 months and she already took antibiotic and over the counter cough medications but it comes and goes however she noticed that phlegm production has increased and it is thick she said. Patient uses 2 L/NC at home and she has also nebulizer at home. Patient also mentioned that she has difficulty swallowing. Patient also reported she has a scheduled colonoscopy next Sunday and recently had a liver scan done. Patient stated she is on hemodialysis Sunday and Sunday and her shuttle inspector is Dr. Dye. Seen and examined patient in the ER who was just finished having a right midline insertion In the ER Latest vital signs temperature 98.1, heart rate 68, blood pressure 16 6/95 saturation 95% on 2 L nasal cannula. In the ER Labs: Platelet count 105 the rest is unremarkable. Sodium 135, potassium 5.6, chloride 97, BUN 41, creatinine 6.9, GFR seven glucose 189, calcium 8.3 BNP 2250, troponin 14. ECG result revealed sinus rhythm heart rate 68 with prolonged FL interval. Chest x-ray result revealed cardiomegaly. Right moderate pleural effusion. Possibility of underlying right pneumonia can not be excluded. Right PermCath in place. No pneumothorax. Clear left lung. While in the ER patient received vancomycin IV , Zosyn IV, Zofran 4 mg IV, morphine 4 mg IV, Solu-Medrol 125 mg IV. Patient admitted for further evaluation and medical management. 04/25 patient is seen and examined at bedside, case discussed with the RN, no acute events overnight, patient alert oriented x3, getting IV antibiotics, getting hemodialysis during my visit, BP 150/75, afebrile, WBC of 3.9. Latest potassium level 6.3. 04/26 49-year-old female, a reliable historian with bilateral eye blindness and past medical history of diabetes, hypertension, hyperlipidemia, end-stage renal disease on hemodialysis, Chronic obstructive pulmonary disease, asthma, on home O2 dependent, rheumatoid arthritis, anxiety and depression who presented to the ED April 24, 2025 and found to have on chest X cardiomegaly. Right moderate pleural effusion. Possibility of underlying right pneumonia can not be excluded. Right PermCath in place. No pneumothorax. Clear left lung. Continue the patient on broad-spectrum IV antibiotics, continue to taper IV steroids, continue to and recommendation, continue hemodialysis per shuttle inspector recommendation. During my visit the patient is alert oriented x3, getting IV antibiotics, denies chest pain, no shortness a breath. REVIEW OF SYSTEMS CONSTITUTIONAL: Denies fevers, chills, or night sweats. No unintentional weight loss reported. NEUROLOGICAL: Denies headache, amaurosis fugax, motor weakness, sensory deficit, vertigo/spinning sensation, gait abnormalities, or tremors. ENT: No hearing loss, otalgia, otorrhea, rhinitis, rhinorrhea, hoarseness, or sore throat. CARDIOVASCULAR: Denies any exertional angina, dyspnea on exertion, orthopnea, paroxysmal nocturnal dyspnea, palpitations, life-threatening arrhythmias, claudication. PULMONARY: Complained of productive cough Denies any shortness of breath hemoptysis, pleuritic chest pain. SLEEP: Denies morning headaches, daytime somnolence or napping. Denies difficulty falling asleep, staying asleep, waking from sleep. Denies knowledge of snoring. GASTROINTESTINAL: Denies any type of dysphagia to either liquids or solids. Denies nausea, vomiting, pyrosis, early satiety, abdominal pain, diarrhea, cons tipation, or changes in stool consistency or caliber. Denies coffee-ground emesis, hematemesis, hematochezia, or melanotic stools. GENITOURINARY: Denies frequency, urgency, nocturia, hematuria or incontinence (Storage/Irritative symptoms.) Low urinary stream, straining to void, urinary intermittency or hesitancy, splitting of the voiding stream, terminal dribbling. ENDOCRINOLOGIC: Denies polyuria, polydipsia, polyphagia or heat/cold intolerances. HEMATOLOGIC: Denies thrombophilia/previous clots, or coagulopathy/bleeding disorders. ONCOLOGIC: Denies personal history of malignancy. DERMATOLOGIC: Denies rashes or pruritus. PSYCHIATRIC: Denies any suicidal or homicidal ideation. Denies hallucinations. PHYSICAL EXAM GENERAL APPEARANCE: The patient is awake, alert, and oriented, in no acute cardiopulmonary distress. NEUROLOGICAL: Cranial nerves II-XII grossly intact. Motor is 5/5 in bilateral upper and lower extremities proximal to distal. No sensory deficits. HEENT: Face is symmetric. Pupils are equal and reactive. Extraocular movements are intact. NECK: Supple. No JVD. No thyromegaly. No submental, submandibular, pre- /postauricular, occipital or supraclavicular lymphadenopathy. CHEST: Normal chest expansion. No Telemetry. LUNGS: Absence of any rales, rhonchi or any wheezing. CARDIOVASCULAR: Regular. S1 and S2 normal. No appreciable rubs, murmurs or gallops. ABDOMEN: Soft, nontender, and nondistended. There is no rebound, voluntary guarding, or rigidity. : Deferred. No Owens. EXTREMITIES: Non-edematous and not cyanotic. No clubbing. Good capillary refill. SKIN: No skin breakdown. Vital Signs (last 8hr) Date Time Temp Pulse Resp B/P (MAP) Pulse Ox O2 Delivery O2 Flow Rate FiO2 04/26/25 08:55 94 Nasal Cannula* 2 28 04/26/25 08:00 97.5 90 18 161/99 94 Nasal Cannula 2.0 04/26/25 06:54 85 18 N/Cannula Low lpm 2.0 28 04/26/25 06:52 85 18 04/26/25 04:03 97.7 87 18 126/70 94 Nasal Cannula 2.0 04/26/25 02:32 84 18 LABS: Laboratory: Test 04/26/25 04:25 04/25/25 20:04 04/25/25 08:16 04/25/25 03:17 Range/Units White Blood Count 6.2 4.8-10.8 K/uL Red Blood Count 4.36 4.00-5.50 MIL/uL Hemoglobin 13.4 12.0-16.0 g/dL Hematocrit 40.7 36-48 % Mean Corpuscular Volume 93.3 79-99 fL Mean Corpuscular Hemoglobin 30.7 27.0-33.0 pg Mean Corpuscular Hemoglobin Concent 32.9 32.0-36.0 g/dL Red Cell Distribution Width 15.6 H 11.0-15.5 % Platelet Count 102 L 130-400 K/uL Mean Platelet Volume 9.9 7.5-10.5 fL Nucleated Red Blood Cells 0.0 0.0-0.19 % Sodium Level 133 L 136-145 mmol/L Potassium Level 4.7 3.5-5.1 mmol/L Chloride Level 95 L 101-111 mmol/L Carbon Dioxide Level 29 21-32 mmol/L Blood Urea Nitrogen 40 H 7-18 mg/dL Creatinine 6.0 H 0.5-1.0 mg/dL Glomerular Filtration Rate Calc 8 >90 mL/min Random Glucose 119 H 70-105 mg/dL Total Calcium 7.9 L 8.5-10.1 mg/dL Phosphorus Level 7.4 H 2.5-4.9 mg/dL Magnesium Level 2.30 1.80-2.40 mg/dL Total Bilirubin 1.4 H 0.2-1.0 mg/dL Aspartate Amino Transf (AST/SGOT) 36 10-37 U/L Alanine Aminotransferase (ALT/SGPT) 39 12-78 U/L Alkaline Phosphatase 232 H 50-136 U/L Total Protein 6.3 6.0-8.3 g/dL Albumin 3.1 L 3.5-5.0 g/dL Whole Blood Glucose 191 H 70-110 MG/DL Hepatitis B Surface Antigen. Non-Reactive Nonreactive Hepatitis B Surface Antibody. Positive Reactive Hepatitis B Core Total Antibody. Non-Reactive Nonreactive Immature Granulocyte % (Auto) 0.3 0-1 % Neutrophils (%) (Auto) 82.5 H 40.0-77.0 % Lymphocytes (%) (Auto) 14.6 L 21.0-51.0 % Monocytes (%) (Auto) 2.0 L 3.0-13.0 % Eosinophils (%) (Auto) 0.3 0.0-8.0 % Basophils (%) (Auto) 0.3 0.0-5.0 % Neutrophils # (Auto) 3.2 1.8-7.7 K/uL Lymphocytes # (Auto) 0.6 L 1.0-4.8 K/uL Monocytes # (Auto) 0.1 0.1-1.0 K/uL Eosinophils # (Auto) 0.01 0.00-0.70 K/uL Basophils # (Auto) 0.01 0.00-0.20 K/uL Absolute Immature Granulocyte (auto 0.01 0-1 K/uL Test 04/24/25 17:40 Range/Units Prothrombin Time 12.6 H 9.6-11.6 SEC Prothromb Time International Ratio 1.21 H 0.85-1.15 Activated Partial Thromboplast Time 27.9 26.3-35.5 SEC Total Creatine Kinase 113 21-232 U/L Troponin I High Sensitivity 14.6 4-50 ng/L B-Type Natriuretic Peptide 2250 H 0-100 pg/mL Current Medications Medications (Trade) Dose Ordered Sig/Wong Route PRN Reason Start Time Stop Time Status Last Admin Dose Admin Acetaminophen (TYLenol 325MG TAB) 650 mg Q4H PRN PO MILD PAIN (1-3) 04/24/25 20:30 05/24/25 20:29 04/24/25 23:43 650 MG Acetaminophen (TYLenol 325MG TAB) 650 mg Q6H PRN PO TEMPERATURE GREATER THAN 101.5 04/24/25 20:30 05/24/25 20:29 04/25/25 15:54 650 MG Albuterol (DUOneb) 1 udvial [id number] IH 04/24/25 22:00 05/24/25 21:59 04/26/25 06:52 1 UDVIAL Alprazolam (XANax 0.25MG) 0.25 mg DAILY PRN PO ANXIETY/AGITATION 04/25/25 09:30 05/25/25 09:29 04/25/25 12:58 0.25 MG Citalopram Hydrobromide (CeleXA 20MG TAB) 10 mg DAILY PO 04/26/25 09:00 05/26/25 08:59 04/26/25 09:14 10 MG Dextrose (D50w) 50 ml AD PRN IV HYPOGLYCEMIA PROTOCOL 04/24/25 20:30 05/24/25 20:29 Famotidine (Pepcid 20mg Tab) 20 mg Q48H PO 04/25/25 09:00 05/25/25 08:59 Glucagon (Glucagon 1mg Kit) 1 mg AD PRN IM HYPOGLYCEMIA PROTOCOL 04/24/25 20:30 05/24/25 20:29 Guaifenesin/ Dextromethorphan (RobiTUSSin DM 200/20MG 10ML) 10 ml Q4H PRN PO COUGH 04/24/25 20:30 05/24/25 20:29 Heparin Sodium (Porcine) (HEParin 5,000 UNIT VIAL) 10,000 unit AD IRRIG 04/25/25 10:00 05/25/25 09:59 Hydralazine HCl (APRESOLine 20MG INJ) 10 mg Q6H PRN IV For:SBP above 160;DBP above 90 04/24/25 20:30 05/24/25 20:29 Insulin Glargine (LANtus 100 UNITS/ML 10 ML VIAL) 16 units HS SQ 04/25/25 21:00 05/25/25 20:59 04/25/25 20:36 16 UNITS Insulin Human Regular (humuLIN R 100 UNIT/ML 3ML) INSULIN SLIDING SCAL... ACHS SQ 04/24/25 21:00 05/24/25 20:59 04/25/25 20:37 2 UNIT Lactulose (Constulose 20gm/ 30ml Udcup) 20 gm BID PRN PO CONSTIPATION 04/24/25 20:30 05/24/25 20:29 Losartan Potassium (CozAAR 50 mg TAB) 50 mg BID PO 04/25/25 09:30 05/25/25 09:29 04/26/25 09:14 50 MG Nitroglycerin (Nitrostat) 0.4 mg PROTOCOL PRN SL CHEST PAIN 04/24/25 20:30 05/24/25 20:29 Ondansetron HCl (zoFRAN 4MG INJ) 4 mg Q6H PRN IV NAUSEA/VOMITING 04/24/25 20:30 05/24/25 20:29 Pharmacy Profile Note (Pharmacy Communication) 1 each AD MISC 04/25/25 20:30 04/25/25 20:25 DC Piperacillin Sod/ Tazobactam Sod 50 ml @ 12.5 mls/hr Q12H IV 04/25/25 08:00 04/25/25 21:56 DC 04/25/25 12:40 12.5 MLS/HR Piperacillin Sod/ Tazobactam Sod 50 ml @ 12.5 mls/hr Q12H IV 04/26/25 02:00 05/06/25 01:59 04/26/25 02:21 12.5 MLS/HR Sevelamer HCl (RENAgel 800 MG TAB) 800 mg TIDMEALS PO 04/25/25 12:00 05/25/25 11:59 04/26/25 09:14 800 MG Sodium Chloride 1,000 ml @ 0 mls/hr ONCE IV 04/25/25 08:00 05/25/25 07:59 04/25/25 08:44 333 MLS/HR Vancomycin HCl 250 ml @ 125 mls/hr ONCE IV 04/24/25 20:30 04/24/25 20:41 DC Vancomycin HCl (Vancomycin 750mg) 750 mg TTHSPHD IVPB 04/25/25 16:00 05/05/25 15:59 04/25/25 15:55 750 MG Vancomycin HCl (Vancomycin Protocol) 1 each AD IV 04/24/25 21:00 05/08/25 20:59 Vitamin B Complex/ Vit C/Folic Acid (Nephrovite Tablet) 1 cap DAILY PO 04/26/25 09:00 05/26/25 08:59 04/26/25 09:14 1 CAP DIAGNOSTICS / RADIOLOGY: [ ] ASSESSMENT: Possible right lower lobe pneumonia POA Chronic respiratory failure on home O2 dependence POA Hypertension POA Acute thrombocytopenia POA Hyperkalemia POA End-stage renal disease on hemodialysis POA Uncontrolled diabetes POA Acute CHF POA Dysphagia POA PLAN: Patient downgraded to the medical floor Nephrology consultation requested, continue hemodialysis Pulmonary consultation requested, we will follow input and recommendation Serology to include influenza, rapid strep and SARS antigen, follow sputum cultures. Continue the patient on broad-spectrum IV antibiotics am labs NEURO: Minimize central acting medications as possible. Fall Precautions. Well lighted room through the day and minimize interruptions through the night to prevent acute delirium. PULMONARY: Supplemental 02 as needed BiPAP as necessary, for respiratory distress Titrate Fio2 to keep Spo2 > or = 90% DuoNebs and CPT as needed IS hourly while awake for pulmonary hygiene prn Out of bed to chair as tolerated Maintain aspiration precautions at all times CARDIOVASCULAR: Follow hemodynamics. Vital signs per facility protocol GI & NUTRITION: Continue nutritional support Aspirations precautions Prokinetic agents and laxatives as needed KIDNEYS & ELECTROLYTES: Strict monitoring of intake and output Daily weights Avoid nephrotoxic agents Monitor electrolytes and replace as needed Goal urine output of 30mL/hr or 0.5mL/kg/hr Medications to be dosed according to renal function. Avoid contrast if possible ENDOCRINE: Maintain blood glucose between 100-180 at all times. Insulin sliding scale for blood glucose management Hypoglycemia and hyperglycemia protocol in place INFECTIOUS DISEASE: Trend temperature, WBC and procalcitonin level Follow cultures, deescalate antibiotics as soon as possible. Panculture if new onset fever HEMATOLOGY & COAGULATION: Monitor H&H. Keep Hgb > 7 Transfuse 1 unit of PRBC for Hgb < 7 Transfuse 1 pack of platelets of platelets < 20, 000 Watch for any signs and symptoms of bleeding SKIN: Pressure ulcer prevention per facility protocol Specialty mattress as needed ORTHO/REHAB Continue PT/OT PRN: MEDICATIONS Tylenol 650 mg po every 4 hrs for fever zofran 4 mg IV every 6 hrs for n/v Hydralazine 5 mg IV every 4 hrs systolic pressure > 160 bowel regiment: lactulose 20 gm PO BID PRN constipation Supportive measures: Continue GI and DVT prophylaxis Disposition: Pending improvement in clinical condition All questions answered time spent: > 35 min EVENS KOLB MD Apr 26, 2025 09:41
--- NOTE | 2025-04-26 10:30 | NUR ---
BEDSIDE SWALLOW EVAL COMPLETED. + s/s of pharyngeal dysphagia. Recommend minced/moist solids, thin liquids, and crushed meds with pureed as tolerated. COMPENSATORY STRATEGIES 1. Sit upright 2. slow oral intake 3. Alt liquids and solids 4. Remain seated for 30 min post meal LINE UP WORKER reviewed results and recommendations with patient and nurse Rach. LINE UP WORKER educated patient/family on risk and consequences of aspiration. Speech therapy warranted at this time to address dysphagia. All questions answered. RECOMMENDATIONS: Dysphagia therapy 1-3x week to improve pharyngeal swallow: LTG#1: Pt will tolerate least restrictive diet to meet nutrition/hydration with no s/s of aspiration. LTG#2: Skilled education Pt/family/staff STG#1: Pt will participate in laryngeal elevation/excursion exercises with 90% accuracy. STG#2: Pt will participate in tongue based retraction exercises with 90% accuracy with min asst. STG#3: Pt will participate in oral motor exercises with 90% accuracy with min asst. STG#4 Pt will tolerate a modified diet of minced/moist solids with no overt s/s of aspiration. STG#5 Pt will participate in therapeutic trials of soft and bite sized solids with no overt s/s of aspiration. STG#6: Skilled education with pt/family/staff Addendum: 04/26/25 at 1117 by MIKEL MANDEL Amended: Links added.
--- NOTE | 2025-04-26 10:50 | PN ---
[facility] PROGRESS NOTE Date Patient Seen: Apr 26, 2025 Time of Visit: 10:44 Supervising Physician: Dr Morgan Primary Care Physician: Zuleika Chi Outpatient Specialists: [ ] Inpatient Consults: HAN PROBLEM LIST: Acute on chronic hypoxemic respiratory failure POA - on Home 02 @ 2L resolved to baseline Pulmonary Edema ESRD in need of HD Non compliant with HD Suspect right lower lobe pneumonia POA Essential Hypertension Acute thrombocytopenia POA Hyperkalemia POA End-stage renal disease on hemodialysis POA Uncontrolled Type 2 diabetes w/ hyperglycemia POA Acute on chronic combined CHF exacerbation POA Stage I diastolic dysfunction LVEF 40% (2D echo 09/2020) Dysphagia POA Plan Summary: Supplemental oxygen as needed Patient is at her home baseline at 2 L nasal cannula Duo nebs as needed Patient has been advised of the importance of being compliant with hemodialysis treatment 1.5 L fluid restriction Strict intakes and outputs Daily weights Fluid challenge removal with hemodialysis Chest x-ray post hemodialysis to evaluate for suspected pneumonia Continue antibiotics for now INTERVAL HISTORY: This is a 49-year-old female, a reliable historian with bilateral eye blindness and past medical history of diabetes, hypertension, hyperlipidemia, end-stage renal disease on hemodialysis, Chronic obstructive pulmonary disease, asthma, on home O2 dependent, rheumatoid arthritis, anxiety and depression who presents to the ED for complaints of severe right back pain started today. Patient reports she was at adult daycare center when she had an episode of cough and suddenly she developed severe right back pain and decided to come to the ER for evaluation.Patient states she has been having cough on and off for the past 3 months and she already took antibiotic and over the counter cough meds but it comes and goes however she noticed that phlegm production has increased and it is thick she said.Patient uses 2 L/NC at home and she has also nebulizer at home. Patient also mentioned that she has difficulty swallowing. Patient also reports she has a scheduled colonoscopy next Sunday and recently had a liver scan done. Patient states she is on hemodialysis Sunday and Sunday and her volunteer recruitment coordinator is Dr. Dye. Patient is evaluated at the bedside. Patient appears to be weak, deconditioned and continues on artificial life support via hemodialysis treatment. Patient tolerating well thus far. Patient continues on 2 L via nasal cannula which is her home baseline. Patient admits she missed hemodialysis treatment this past week. Had a long discussion regarding the importance of being compliance with hemodialysis to help prevent worsening disease. Patient verbalized understanding. Recommend to continue hemodialysis as per Nephrology. Repeat a chest x-ray post HD to evaluate suspected pneumonia. Continue antibiotics for now. Obtain a 2D echo as previous showed an EF of 40%. Outpatient follow up in Pulmonary Clinic once discharged. We will continue to follow with you. 04/26 - patient is seen sitting up in bed continues to be weak, deconditioned and hypoxemic on her home baseline of2 L. patient received hemodialysis treatment yesterday and tolerated the procedure well. Patient reports feeling much improved. No acute changes reported overnight. Patient continues on IV antibiotics and we are currently pending today's chest x-ray evaluate pneumonia. Patient remains afebrile white count is within normal limits. We will continue to monitor closely. REVIEW OF SYSTEMS: 12 point ROS reviewed with patient. Pertinent positives mentioned above. Otherwise negative. PHYSICAL EXAM: GENERAL: alert, weak, awake oriented x 3 HEENT: EOMI, Sclera non icteric, moist mucosa NECK: Supple, no JVD, trachea midline LUNGS: Decrease right breath sounds. No wheezes HEART: Regular rate and rhythm. Normal S1 and S2, without murmurs ABD: Abdomen soft, nontender. Bowel sounds present EXT: No clubbing cyanosis or edema NEURO: Alert and oriented to person, follows commands Vital Signs (last 8hr) Date Time Temp Pulse Resp B/P (MAP) Pulse Ox O2 Delivery O2 Flow Rate FiO2 04/26/25 08:55 94 Nasal Cannula* 2 28 04/26/25 08:00 97.5 90 18 161/99 94 Nasal Cannula 2.0 04/26/25 06:54 85 18 N/Cannula Low lpm 2.0 28 04/26/25 06:52 85 18 04/26/25 04:03 97.7 87 18 126/70 94 Nasal Cannula 2.0 LABS: Hematology Labs: Test 04/26/25 04:25 04/25/25 03:17 Range/Units White Blood Count 6.2 4.8-10.8 K/uL Red Blood Count 4.36 4.00-5.50 MIL/uL Hemoglobin 13.4 12.0-16.0 g/dL Hematocrit 40.7 36-48 % Mean Corpuscular Volume 93.3 79-99 fL Mean Corpuscular Hemoglobin 30.7 27.0-33.0 pg Mean Corpuscular Hemoglobin Concent 32.9 32.0-36.0 g/dL Red Cell Distribution Width 15.6 H 11.0-15.5 % Platelet Count 102 L 130-400 K/uL Mean Platelet Volume 9.9 7.5-10.5 fL Nucleated Red Blood Cells 0.0 0.0-0.19 % Immature Granulocyte % (Auto) 0.3 0-1 % Neutrophils (%) (Auto) 82.5 H 40.0-77.0 % Lymphocytes (%) (Auto) 14.6 L 21.0-51.0 % Monocytes (%) (Auto) 2.0 L 3.0-13.0 % Eosinophils (%) (Auto) 0.3 0.0-8.0 % Basophils (%) (Auto) 0.3 0.0-5.0 % Neutrophils # (Auto) 3.2 1.8-7.7 K/uL Lymphocytes # (Auto) 0.6 L 1.0-4.8 K/uL Monocytes # (Auto) 0.1 0.1-1.0 K/uL Eosinophils # (Auto) 0.01 0.00-0.70 K/uL Basophils # (Auto) 0.01 0.00-0.20 K/uL Absolute Immature Granulocyte (auto 0.01 0-1 K/uL Chemistry Labs: Test 04/26/25 04:25 04/25/25 20:04 04/24/25 17:40 Range/Units Sodium Level 133 L 136-145 mmol/L Potassium Level 4.7 3.5-5.1 mmol/L Chloride Level 95 L 101-111 mmol/L Carbon Dioxide Level 29 21-32 mmol/L Blood Urea Nitrogen 40 H 7-18 mg/dL Creatinine 6.0 H 0.5-1.0 mg/dL Glomerular Filtration Rate Calc 8 >90 mL/min Random Glucose 119 H 70-105 mg/dL Total Calcium 7.9 L 8.5-10.1 mg/dL Phosphorus Level 7.4 H 2.5-4.9 mg/dL Magnesium Level 2.30 1.80-2.40 mg/dL Total Bilirubin 1.4 H 0.2-1.0 mg/dL Aspartate Amino Transf (AST/SGOT) 36 10-37 U/L Alanine Aminotransferase (ALT/SGPT) 39 12-78 U/L Alkaline Phosphatase 232 H 50-136 U/L Total Protein 6.3 6.0-8.3 g/dL Albumin 3.1 L 3.5-5.0 g/dL Whole Blood Glucose 191 H 70-110 MG/DL Total Creatine Kinase 113 21-232 U/L Troponin I High Sensitivity 14.6 4-50 ng/L B-Type Natriuretic Peptide 2250 H 0-100 pg/mL Coagulation Labs: Test 04/24/25 17:40 Range/Units Prothrombin Time 12.6 H 9.6-11.6 SEC Prothromb Time International Ratio 1.21 H 0.85-1.15 Activated Partial Thromboplast Time 27.9 26.3-35.5 SEC DIAGNOSTICS / RADIOLOGY RESULTS: [ ] PLAN NEURO: Minimize central acting medications as possible. Maintain fall precautions, adequate lighting during the day PULMONARY: Supplemental 02 as needed. Maintain aspiration precautions at all times Repeat chest x-ray post HD to evaluate suspected pneumonia CARDIOVASCULAR: Follow hemodynamics. Vital signs per facility protocol GI & NUTRITION: Continue with nutritional support. Continue stool softeners and laxatives as needed. KIDNEYS & ELECTROLYTES: Strict monitoring of intake, output and overall fluid balance. Avoid nephrotoxic medications to the extent possible. Medications to be dosed according to renal function. Monitor electrolytes and replace as needed HD as per Nephrology Patient advised to be 100% compliance with hemodialysis ENDOCRINE: Maintain blood glucose between 100-180 at all times. Hypoglycemia protocol in place INFECTIOUS DISEASE: Trend temperature, WBC and procalcitonin level Follow cultures, deescalate antibiotics as soon as possible. Panculture if new onset fever ONCOLOGY/HEMATOLOGY/COAGULATION: Monitor for s/s of bleeding Monitor hemoglobin, coagulation studies as needed SKIN: Pressure ulcer prevention per facility protocol Specialty mattress ORTHO/REHAB: Continue PT/OT Prophylaxis: Continue GI and DVT prophylaxis Code Status: Full Resuscitation Disposition: As per attending ATTESTATION BY PHYSICIAN I have evaluated the patient chart, medical records, and spoke with appropriate staff. I reviewed the documentation, medical decision making, and treatment plan as noted by the mid-level provider above. I agree with the findings and plan of care. Marko Morgan MD, ECTOR N MARGUERITE Apr 26, 2025 10:50
--- NOTE | 2025-04-26 16:00 | HMCSR ---
APPROVED REPORT EXAM: Two-dimensional and M-mode echocardiogram with Doppler and color Doppler. INDICATION ICD: Acute congestive heart failure 2D Dimensions RVDd5.7 cmLVEF(%)57.0 (>50%)LVED Vol(simp.)123.0 mL IVSd1.0 (0.7-1.1cm)FS(%)30 %LVES Vol(simp.)56.0 mL LVDd5.1 (3.8-5.6cm)LA (2D)4.9 (1.6-4.0cm)LVEF(%, simp.)55 % PWd1.0 (0.7-1.1cm)Ao Root(2D)3.1 (2.0-3.7cm)LA ESV INDEX (BP)38.42 mL/m2 IVSs1.4 cmLVOT diam2.4 (1.8-2.4cm) LVDs3.6 (2.5-4.0cm)IVC diam2.6 cm PWs1.4 cm Deformation Strain Apical 4-16.5 % Apical 2-18.8 % Apical 3-14.1 % Global Strain-16.5 % M-Mode Dimensions EPSS0.7 cm LA (MM)4.4 (1.6-4.0cm) Ao Root(MM)2.8 (2.0-3.7cm) Aortic Valve AoV Vmax1.5 m/Gregorio Peak GR0.0 mmHgLVOT Vmax1.1 m/s AoV VTI0.3 mAo Mean GR6.0 mmHgLVOT VTI0.21 m HEATHER (VMAX)3.14 cm2AVA (VTI) 3.4 cm2 Mitral Valve MV E Vmax75.4 cm/sDECEL Baxh623 ms MV A Vmax84.7 cm/sP 1/2 T41 ms E/A ratio0.9MVA (PHT)5.3 cm2 TDI E/E' Wrwnxg80.3E/E' Lateral7.6 Medial E' Peak V5.29 cm/sLateral E' Peak V9.90 cm/s Pulmonary Valve PV Vmax1.0 m/sPV VTI0.20 mPV Mean GR2.4 mmHg PV Peak GR4.1 mmHg Tricuspid Valve TR Vmax3.0 m/sRAP (EST) 15 lgTmWIPO83.0 mmHg TR Peak GR37.0 mmHg Left Ventricle Normal size D shaped left ventricle. GLS -16.0%. Septal flattening with dyskinetic septal wall motin and normal thickening, consistent with RV volume overload. There is normal left ventricular wall thic kness. LVEF is 55-60%. 3D volume EF 54%. Left ventricular filling pattern is normal for age. Right Ventricle The right ventricle is severely dilated. RV GLS 19.0%. The right ventricular systolic function is nor mal. Atria The left atrium is mildly dilated. The right atrium is severely dilated. 177mL in volume. Aortic Valve The aortic valve is trileaflet normal in structure. Trace of aortic regurgitation is present. There i s no aortic valvular stenosis. Mitral Valve The mitral valve is normal in structure. There is trace of mitral valve regurgitation noted. There is no mitral valve stenosis. Tricuspid Valve The tricuspid valve is normal in structure. There is moderate tricuspid valve regurgitation noted. RV SP 52mmHg. Pulmonic Valve The pulmonary valve is normal in structure. There is mild pulmonic valvular regurgitation. Great Vessels The aortic root is normal in size. IVC is dilated and collapses <50% with inspiration. Pericardium There is trivial pericardial effusion. Other Information Quality : Adequate Conclusion LVEF is 55-60%. 3D volume EF 54%. GLS -16.0%. Septal flattening with dyskinetic septal wall motin and normal thickening, consistent with RV volume overload. The right ventricle is severely dilated. RV GLS 19.0%. The left atrium is mildly dilated. The right atrium is severely dilated. 177mL in volume. Trace of aortic regurgitation is present. There is trace of mitral valve regurgitation noted. There is moderate tricuspid valve regurgitation noted. RVSP 52mmHg.
--- NOTE | 2025-04-26 19:52 | PN ---
FOLLOWUP PROGRESS NOTE SUBJECTIVE: A 49-year-old female with a history of diabetes mellitus and hypertension. She has a history of known diabetic retinopathy. The patient presented to the hospital and found to have symptomatic hyperkalemia. The patient did receive dialysis on the day of admission. The patient with 3 liters of ultrafiltration with her dialysis yesterday. The patient's pulmonary symptoms are much improved. The patient's potassium also is improved. She is being seen as a followup visit for all of the above. A 2D echo is pending. REVIEW OF SYSTEMS: CONSTITUTIONAL: She is feeling much improved. HEENT: No change in vision. No change in hearing. CARDIOVASCULAR: No chest pain or palpitations. PULMONARY: Shortness of breath improved. GASTROINTESTINAL: She is tolerating a diet. MUSCULOSKELETAL: Complains of weakness. OBJECTIVE: VITAL SIGNS: Blood pressure is 126/70, pulse 80. She is afebrile. GENERAL: Chronically ill female, much older than appearing. HEENT: Head is atraumatic. Pupils are equal, roving to light. Oropharynx is without exudate. Nares clear. NECK: There is no JVP. There is no thyromegaly. No mass. CARDIOVASCULAR: Regular. There is no S3, S4 or gallop. LUNGS: Coarse with equal thoracic movement. ABDOMEN: Soft, nondistended, and nontender. EXTREMITIES: Reveled no clubbing, no cyanosis. NEUROLOGICAL: She is awake. She is alert. LABORATORY DATA: Hemoglobin 13, hematocrit 40, sodium 133, BUN 40, creatinine of 6. IMPRESSION: * Hyperkalemia, improved. * Respiratory distress. * Diabetes mellitus. * Hypertension. * ESRD. PLAN: The patient is much improved with the dialysis session. The patient's hyperkalemia has resolved. The patient's pulmonary symptoms also have improved. She is encouraged with her general medical care including her diet. 2D echocardiogram is pending. All labs can be repeated in the morning. She will continue dialysis while in the hospital. TID: [id number] RECEIPT: [id number]
[2025-04-26 20:58] LABS: RAPID GROUP A STREP negative (NEGATIVE)
[2025-04-26 21:08] LABS: COVID19 (SARS ANTIGEN RAPID) PRESUMPTIVE NEGATIVE (NEGATIVE); INFLUENZA TYPE A Negative For Type A (NEGATIVE); INFLUENZA TYPE B Negative For Type B (NEGATIVE)
[2025-04-27] VITALS (8 sets, daily range): BP systolic 150–160; BP diastolic 76–95; PULSE 81–95; RESP 16–19; TEMP 97.5–98.1; O2SAT 91–94
[2025-04-27 04:34] LABS: HEMATOCRIT 39.2 % (36-48); MEAN CORPUSCULAR HEMOGLOBIN 31.1 pg (27.0-33.0); MEAN CORPUSCULAR HGB CONC 33.4 g/dL (32.0-36.0); MEAN CORPUSCULAR VOLUME 93.1 fL (79-99); RED BLOOD CELL COUNT(AUTO) 4.21 MIL/uL (4.00-5.50); RED CELL DISTRIBUTION WIDTH 15.6 % (11.0-15.5); WHITE BLOOD COUNT (AUTO) 5.7 K/uL (4.8-10.8)
[2025-04-27 05:06] LABS: ALBUMIN 3.2 g/dL (3.5-5.0); BILIRUBIN,TOTAL 1.6 mg/dL (0.2-1.0); CREATININE 6.9 mg/dL (0.5-1.0); MAGNESIUM 2.4 mg/dL (1.80-2.40); POTASSIUM 4.8 mmol/L (3.5-5.1); TOTAL PROTEIN, SERUM 6.5 g/dL (6.0-8.3)
--- NOTE | 2025-04-27 09:41 | PN ---
[facility] PROGRESS NOTE Date Patient Seen: Apr 27, 2025 Time of Visit: 09:34 Supervising Physician: [Dr Valencia Primary Care Physician: Zuleika Chi Outpatient Specialists: [ ] Inpatient Consults: HAN PROBLEM LIST: Acute on chronic hypoxemic respiratory failure POA - on Home 02 @ 2L resolved to baseline Pulmonary Edema - poa resolved ESRD in need of HD Non compliant with HD Suspect right lower lobe pneumonia POA Essential Hypertension Acute thrombocytopenia POA Hyperkalemia POA End-stage renal disease on hemodialysis POA Uncontrolled Type 2 diabetes w/ hyperglycemia POA Acute on chronic combined CHF exacerbation POA Stage I diastolic dysfunction LVEF 40% (2D echo 09/2020) Dysphagia POA Plan Summary: Supplemental oxygen as needed Patient is at her home baseline at 2 L nasal cannula Duo nebs as needed Patient has been advised of the importance of being compliant with hemodialysis treatment 1.5 L fluid restriction Strict intakes and outputs Daily weights Fluid challenge removal with hemodialysis Outpt f/u in pulmonary clinic 1 week post discharge OK to d/c home w/ oral abts from pulmonary standpoint INTERVAL HISTORY: This is a 49-year-old female, a reliable historian with bilateral eye blindness and past medical history of diabetes, hypertension, hyperlipidemia, end-stage renal disease on hemodialysis, Chronic obstructive pulmonary disease, asthma, on home O2 dependent, rheumatoid arthritis, anxiety and depression who presents to the ED for complaints of severe right back pain started today. [facility] she had an episode of cough and suddenly she developed severe right back pain and decided to come to the ER for evaluation.Patient states she has been having cough on and off for the past 3 months and she already took antibiotic and over the counter cough meds but it comes and goes however she noticed that phlegm production has increased and it is thick she said.Patient uses 2 L/NC at home and she has also nebulizer at home. Patient also mentioned that she has difficulty swallowing. Patient also reports she has a scheduled colonoscopy next Sunday and recently had a liver scan done. Patient states she is on hemodialysis Sunday and Sunday and her blow pit operator is Dr. Dye. Patient is evaluated at the bedside. Patient appears to be weak, deconditioned and continues on artificial life support via hemodialysis treatment. Patient tolerating well thus far. Patient continues on 2 L via nasal cannula which is her home baseline. Patient admits she missed hemodialysis treatment this past week. Had a long discussion regarding the importance of being compliance with hemodialysis to help prevent worsening disease. Patient verbalized understanding. Recommend to continue hemodialysis as per Nephrology. Repeat a chest x-ray post HD to evaluate suspected pneumonia. Continue antibiotics for now. Obtain a 2D echo as previous showed an EF of 40%. Outpatient follow up in Pulmonary Clinic once discharged. We will continue to follow with you. 04/26 - patient is seen sitting up in bed continues to be weak, deconditioned and hypoxemic on her home baseline of2 L. patient received hemodialysis treatment yesterday and tolerated the procedure well. Patient reports feeling much improved. No acute changes reported overnight. Patient continues on IV antibiotics and we are currently pending today's chest x-ray evaluate pneumonia. Patient remains afebrile white count is within normal limits. We will continue to monitor closely. 04/27 - patient is seen sitting up in bed eating breakfast continues to be hypoxemic requiring2 L nasal cannula which is her home baseline. Patient is scheduled for hemodialysis on Sunday. Patient does admit feeling much improved and back to baseline. No acute changes reported overnight. Patient was evaluated by speech therapy and recommended a pureed diet with thin liquids. Patient has remained afebrile throughout her stay. White count has remained within normal limits. Procalcitonin has been negative. From a pulmonary standpoint, patient remained stable. Recommended aggressive fluid removal with hemodialysis treatment. Patient informed on importance of compliance with renal diet and outpatient hemodialysis. 1.5 L fluid restriction. Patient may be discharged with oral antibiotics as per attending. Patient to follow up in Pulmonary Clinic1 week post discharge. We will sign off at this time. Thank you for allowing us to participate in the care of your patient. Please reconsult if pulmonary issues arise. REVIEW OF SYSTEMS: 12 point ROS reviewed with patient. Pertinent positives mentioned above. Other diaz negative. PHYSICAL EXAM: GENERAL: alert, weak, awake oriented x 3 HEENT: EOMI, Sclera non icteric, moist mucosa NECK: Supple, no JVD, trachea midline LUNGS: Decrease right breath sounds. No wheezes HEART: Regular rate and rhythm. Normal S1 and S2, without murmurs ABD: Abdomen soft, nontender. Bowel sounds present EXT: No clubbing cyanosis or edema NEURO: Alert and oriented to person, follows commands Vital Signs (last 8hr) Date Time Temp Pulse Resp B/P (MAP) Pulse Ox O2 Delivery O2 Flow Rate FiO2 04/27/25 08:18 90 18 N/Cannula Low lpm 2.0 28 04/27/25 08:00 98.1 93 18 160/81 91 Nasal Cannula 2.0 04/27/25 06:58 86 18 04/27/25 03:55 97.5 95 16 150/76 93 Nasal Cannula 2.0 LABS: Hematology Labs: Test 04/27/25 04:24 Range/Units White Blood Count 5.7 4.8-10.8 K/uL Red Blood Count 4.21 4.00-5.50 MIL/uL Hemoglobin 13.1 12.0-16.0 g/dL Hematocrit 39.2 36-48 % Mean Corpuscular Volume 93.1 79-99 fL Mean Corpuscular Hemoglobin 31.1 27.0-33.0 pg Mean Corpuscular Hemoglobin Concent 33.4 32.0-36.0 g/dL Red Cell Distribution Width 15.6 H 11.0-15.5 % Platelet Count 103 L 130-400 K/uL Mean Platelet Volume 9.4 7.5-10.5 fL Nucleated Red Blood Cells 0.0 0.0-0.19 % Chemistry Labs: Test 04/27/25 05:06 04/27/25 04:24 04/26/25 04:25 Range/Units Whole Blood Glucose 70 70-110 MG/DL Sodium Level 133 L 136-145 mmol/L Potassium Level 4.8 3.5-5.1 mmol/L Chloride Level 94 L 101-111 mmol/L Carbon Dioxide Level 26 21-32 mmol/L Blood Urea Nitrogen 50 H 7-18 mg/dL Creatinine 6.9 H 0.5-1.0 mg/dL Glomerular Filtration Rate Calc 7 >90 mL/min Random Glucose 81 70-105 mg/dL Total Calcium 7.9 L 8.5-10.1 mg/dL Magnesium Level 2.40 1.80-2.40 mg/dL Total Bilirubin 1.6 H 0.2-1.0 mg/dL Aspartate Amino Transf (AST/SGOT) 22 10-37 U/L Alanine Aminotransferase (ALT/SGPT) 32 12-78 U/L Alkaline Phosphatase 220 H 50-136 U/L Total Protein 6.5 6.0-8.3 g/dL Albumin 3.2 L 3.5-5.0 g/dL Phosphorus Level 7.4 H 2.5-4.9 mg/dL DIAGNOSTICS / RADIOLOGY RESULTS: PATIENT: JAYDEN GONZALES MR#: [id number] : 1975 SEX: F AGE: 49 LOCATION: 3AH ORDER 2300 STATUS: ADM IN REPORT#: [id number] SERVICE 0600 REASON: eval pneumonia / right effusion ORDERING PHYSICIAN: SHAMIKA DURON FURNITURE FINISHER HELPER PROCEDURE: CXR1VW - CHEST 1VW Exam Type: CHEST 1VW Clinical Information: eval pneumonia / right effusion Comparison: None Findings: Pulmonary pattern is as before. No worrisome interval changes have taken place. Impression: Stable exam. DICTATED BY: FLAVIA ROGERS MD DATE: 04/26/25836 ELECTRONICALLY SIGNED BY: FLAVIA ROGERS MD DATE: 04/26/25839 PLAN NEURO: Minimize central acting medications as possible. Maintain fall precautions, adequate lighting during the day PULMONARY: Supplemental 02 as needed. Maintain aspiration precautions at all times Repeat chest x-ray post HD to evaluate suspected pneumonia CARDIOVASCULAR: Follow hemodynamics. Vital signs per facility protocol GI & NUTRITION: Continue with nutritional support. Continue stool softeners and laxatives as needed. KIDNEYS & ELECTROLYTES: Strict monitoring of intake, output and overall fluid balance. Avoid nephrotoxic medications to the extent possible. Medications to be dosed according to renal function. Monitor electrolytes and replace as needed HD as per Nephrology Patient advised to be 100% compliance with hemodialysis ENDOCRINE: Maintain blood glucose between 100-180 at all times. Hypoglycemia protocol in place INFECTIOUS DISEASE: Trend temperature, WBC and procalcitonin level Follow cultures, deescalate antibiotics as soon as possible. Panculture if new onset fever ONCOLOGY/HEMATOLOGY/COAGULATION: Monitor for s/s of bleeding Monitor hemoglobin, coagulation studies as needed SKIN: Pressure ulcer prevention per facility protocol Specialty mattress ORTHO/REHAB: Continue PT/OT Prophylaxis: Continue GI and DVT prophylaxis Code Status: Full Resuscitation Disposition: As per attending ATTESTATION BY PHYSICIAN I have seen and examined the patient. I reviewed the documentation, medical decision making, and treatment plan as noted by the mid-level provider above. I agree with the findings and plan of care. Britney Valencia MD, ECTOR N MARGUERITE Apr 27, 2025 09:41
--- NOTE | 2025-04-27 10:49 | NUR ---
SEVELAMER SEVELAMER CANNOT BE CRUSHED ACCORDING TO OMNICELL. I CALLED PHARMACY AND ASKED IF THE MEDICATION WAS AVAILABLE IN A LIQUID FORM OR AN ALTERNATIVE. ACCORDING TO THE PHARMACIST, VANESSA, THERE IS NO SUBSTITUTE AVAILABLE. DR. PASCAL WAS NOTIFIED.
--- NOTE | 2025-04-27 12:25 | DS ---
Discharge Summary Hospital Course Summary: 49-year-old female, a reliable historian with bilateral eye blindness and past medical history of diabetes, hypertension, hyperlipidemia, end-stage renal disease on hemodialysis, Chronic obstructive pulmonary disease, asthma, on home O2 dependent, rheumatoid arthritis, anxiety and depression who presented to the ED April 24, 2025 for complaints of severe right back pain. Patient reported she was at [facility] when she had an episode of cough and suddenly she developed severe right back pain and decided to come to the ER for evaluation. Patient stated she has been having cough on and off for the past 3 months and she already took antibiotic and over the counter cough medications but it comes and goes however she noticed that phlegm production has increased and it is thick she said. Patient uses 2 L/NC at home and she has also nebulizer at home. Patient also mentioned that she has difficulty swallowing. Patient also reported she has a scheduled colonoscopy next Sunday and recently had a liver scan done. Patient stated she is on hemodialysis Sunday and Sunday and her softball umpire is Dr. Dye. Seen and examined patient in the ER who was just finished having a right midline insertion Chest x-ray result revealed cardiomegaly. Right moderate pleural effusion. Possibility of underlying right pneumonia can not be excluded. Right PermCath in place. No pneumothorax. Clear left lung. Patient admitted for further evaluation and medical management. 04/25 patient is seen and examined at bedside, case discussed with the RN, no acute events overnight, patient alert oriented x3, getting IV antibiotics, getting hemodialysis during my visit, BP 150/75, afebrile, WBC of 3.9. Latest potassium level 6.3. 04/26 49-year-old female, a reliable historian with bilateral eye blindness and past medical history of diabetes, hypertension, hyperlipidemia, end-stage renal disease on hemodialysis, Chronic obstructive pulmonary disease, asthma, on home O2 dependent, rheumatoid arthritis, anxiety and depression who presented to the ED April 24, 2025 and found to have on chest X cardiomegaly. Right moderate pleural effusion. Possibility of underlying right pneumonia can not be excluded. Right PermCath in place. No pneumothorax. Clear left lung. Continue the patient on broad-spectrum IV antibiotics, continue to taper IV steroids, continue to and recommendation, continue hemodialysis per softball umpire recommendation. During my visit the patient is alert oriented x3, getting IV antibiotics, denies chest pain, no shortness a breath. By hospital day 3 she was back to her baseline. She was tolerating PO diet with adjustments made by speech. She still complained of some pain with swallowing however was able to tolerated her meds and meals. She was cleared to discharge back home on her home o2 and will need referral to GI to evaluate for mild odynophagia . She was counselled extensively on importance of compliance to her medications and dialysis appointments, she indicated understanding. [employer] Construction Worker(s): Pulmonology Nephrology Procedure(s): Exam Type: CHEST 1VW Clinical Information: eval pneumonia / right effusion Comparison: None Findings: Pulmonary pattern is as before. No worrisome interval changes have taken place. Impression: Stable exam. Echocardiogram: Conclusion LVEF is 55-60%. 3D volume EF 54%. GLS -16.0%. Septal flattening with dyskinetic septal wall motin and normal thickening, consistent with RV volume overload. The right ventricle is severely dilated. RV GLS 19.0%. The left atrium is mildly dilated. The right atrium is severely dilated. 177mL in volume. Trace of aortic regurgitation is present. There is trace of mitral valve regurgitation noted. There is moderate tricuspid valve regurgitation noted. RVSP 52mmHg. Assessment/Plan: Right lower lobe infiltrate secondary to volume overload due to missed HD, POA Chronic respiratory failure on home O2 dependence POA Hypertension POA Acute thrombocytopenia POA Hyperkalemia POA End-stage renal disease on hemodialysis POA Uncontrolled diabetes POA Acute CHF, ruled out, no CHF Noted on Echo POA Dysphagia POA Discharge Instructions: Follow up with PCP In 3-7 days. Patient reports some pain while swallowing, please refer to Special Education Administrator for further workup. Please ensure her compliance with hemodialysis Follow up at regular hemodialysis appointments Home Medications: Reported Medications [Oxygen] No Conflict Check, 2 L NASAL CONT 03/02/25 Alprazolam (Alprazolam) 0.25 Mg Tablet, 0.25 MG PO AD PRN for ANXIETY/AGITATION, TAB 03/02/25 Metoprolol Succinate (Metoprolol Succinate) 100 Mg Tab.er.24h, 150 MG PO HS, TAB 03/02/25 Ondansetron (Ondansetron Odt) 4 Mg Tab.rapdis, 4 MG PO AD PRN for NAUSEA/VOMITING, TAB 03/02/25 [Ventolin] No Conflict Check, 2 PUFF IH AD PRN for SHORTNESS OF BREATH/WHEEZING 03/02/25 Folic Acid/Vitamin B Comp W-C (Ivy-Radhika Tablet) 0.8 Mg Tablet, 0.8 MG PO AM, TAB 03/02/25 Escitalopram Oxalate (Escitalopram Oxalate) 5 Mg Tablet, 1 TAB PO DAILY 03/02/25 Insulin Glargine,Hum.rec.anlog (Lantus Solostar) 100 Unit/Ml (3 Ml) Insuln.pen, 16 UNIT SQ HS 03/02/25 Sevelamer HCl (Sevelamer HCl) 800 Mg Tablet, 3 TAB PO TIDMEALS 03/02/25 Docusate Sodium (Docusate Sodium) 100 Mg Capsule, 1 CAP PO AD PRN for constipation 03/02/25 Mirtazapine (Mirtazapine) 45 Mg Tablet, 1 TAB PO HS 03/02/25 Omeprazole (Omeprazole) 40 Mg Capsule.dr, 1 CAP PO DAILY 03/02/25 Albuterol Sulfate (Albuterol Sulfate) 2.5 Mg/0.5 Ml Vial.neb, 1 APPL NEB AD PRN for SHORTNESS OF BREATH/WHEEZING 03/02/25 [Breyna] No Conflict Check, 2 PUFF IH BID 03/02/25 Dupilumab (Dupixent Pen) 200 Mg/1.14 Ml Pen.injctr, 200 MG SQ [id number] 03/02/25 Sodium Zirconium Cyclosilicate (Lokelma) 5 Gram Powd.pack, 1 PKT PO AD 03/02/25 Lactulose (Lactulose) 10 Gram/15 Ml Solution, 10 ML PO AD PRN for CONSTIPATION 03/02/25 Losartan Potassium (Losartan Potassium) 100 Mg Tablet, 1 TAB PO DAILY 03/02/25 Insulin Aspart (Novolog Flexpen) 100 Unit/Ml (3 Ml) Insuln.pen, 12 UNITS SQ TIDAC, SYRINGE 09/25/20 Montelukast Sodium (Singulair 10Mg) 10 Mg Tab, 10 MG PO PM, TAB 08/15/20 Atorvastatin Calcium (Atorvastatin Calcium) 10 Mg Tablet, 10 MG PO HS for HYPERLIPIDEMIA, TAB 08/15/20 Continued Medications: Albuterol Sulfate (Albuterol Sulfate) 2.5 Mg/0.5 Ml Vial.neb 1 APPL NEB AD PRN for SHORTNESS OF BREATH/WHEEZING Alprazolam (Alprazolam) 0.25 Mg Tablet 0.25 MG PO AD PRN for ANXIETY/AGITATION, TAB Atorvastatin Calcium (Atorvastatin Calcium) 10 Mg Tablet 10 MG PO HS for HYPERLIPIDEMIA, TAB [Breyna] () 2 PUFF IH BID Docusate Sodium (Docusate Sodium) 100 Mg Capsule 1 CAP PO AD PRN for constipation Dupilumab (Dupixent Pen) 200 Mg/1.14 Ml Pen.injctr 200 MG SQ [id number] Escitalopram Oxalate (Escitalopram Oxalate) 5 Mg Tablet 1 TAB PO DAILY Folic Acid/Vitamin B Comp W-C (Ivy-Radhika Tablet) 0.8 Mg Tablet 0.8 MG PO AM, TAB Insulin Aspart (Novolog Flexpen) 100 Unit/Ml (3 Ml) Insuln.pen 12 UNITS SQ TIDAC, SYRINGE Insulin Glargine,Hum.rec.anlog (Lantus Solostar) 100 Unit/Ml (3 Ml) Insuln.pen 16 UNIT SQ HS Lactulose (Lactulose) 10 Gram/15 Ml Solution 10 ML PO AD PRN for CONSTIPATION Losartan Potassium (Losartan Potassium) 100 Mg Tablet 1 TAB PO DAILY Metoprolol Succinate (Metoprolol Succinate) 100 Mg Tab.er.24h 150 MG PO HS, TAB Mirtazapine (Mirtazapine) 45 Mg Tablet 1 TAB PO HS Montelukast Sodium (Singulair 10Mg) 10 Mg Tab 10 MG PO PM, TAB Omeprazole (Omeprazole) 40 Mg Capsule.dr 1 CAP PO DAILY Ondansetron (Ondansetron Odt) 4 Mg Tab.rapdis 4 MG PO AD PRN for NAUSEA/VOMITING, TAB [Oxygen] () 2 L NASAL CONT Sevelamer HCl (Sevelamer HCl) 800 Mg Tablet 3 TAB PO TIDMEALS Sodium Zirconium Cyclosilicate (Lokelma) 5 Gram Powd.pack 1 PKT PO AD [Ventolin] () 2 PUFF IH AD PRN for SHORTNESS OF BREATH/WHEEZING Time spent arranging discharge: 31-60 minutes JERRICA PASCAL MD Apr 27, 2025 12:25
--- NOTE | 2025-04-27 14:41 | PN ---
NEPHROLOGY PROGRESS NOTE Date/Time Patient Seen: Apr 27, 2025 SUBJECTIVE: This is a 49-year-old female with a history of end-stage renal disease on hemodialysis Sunday, diabetic retinopathy, diabetes mellitus and hypertension. The patient presented to the hospital and found to have symptomatic hyperkalemia. The patient did receive dialysis on the day of admission. The patient's pulmonary symptoms are much improved. The patient's potassium also is improved. She is being seen as a followup visit for all of the above. She is pending discharge disposition later today. REVIEW OF SYSTEMS: GENERAL: Negative for any nausea, vomiting, fevers, chills, or weight loss. NEUROLOGIC: Negative for any blurry vision, blind spots, double vision, facial asymmetry, dysphagia, dysarthria, hemiparesis, hemisensory deficits, vertigo, ataxia. HEENT: Negative for any head trauma, neck trauma, neck stiffness, photophobia, phonophobia, sinusitis, rhinitis. CARDIAC: Negative for any chest pain, dyspnea on exertion, paroxysmal nocturnal dyspnea, peripheral edema. PULMONARY: Negative for any shortness of breath, wheezing, COPD, or TB exposure. GASTROINTESTINAL: Negative for any abdominal pain, nausea, vomiting, bright red blood per rectum, melena. GENITOURINARY: Negative for any dysuria, hematuria, incontinence. INTEGUMENTARY: Negative for any rashes, cuts, insect bites. RHEUMATOLOGIC: Negative for any joint pains, photosensitive rashes, history of vasculitis or kidney problems. HEMATOLOGIC: Negative for any abnormal bruising, frequent infections or bleeding. Vital Signs (last 8hr) Date Time Temp Pulse Resp B/P (MAP) Pulse Ox O2 Delivery O2 Flow Rate FiO2 04/27/25 12:00 97.7 93 18 155/95 93 Nasal Cannula 2.0 04/27/25 10:15 83 18 04/27/25 09:40 91 Nasal Cannula* 2 28 04/27/25 08:18 90 18 N/Cannula Low lpm 2.0 28 04/27/25 08:00 98.1 93 18 160/81 91 Nasal Cannula 2.0 04/27/25 06:58 86 18 PHYSICAL EXAM: GENERAL: Alert and oriented x 3. No acute distress. Well-nourished. EYES: EOMI. Anicteric. HENT: Moist mucous membranes. No scleral icterus. No cervical lymphadenopathy. LUNGS: Clear to auscultation bilaterally. No accessory muscle use. CARDIOVASCULAR: Regular rate and rhythm. No murmur. No JVD. ABDOMEN: Soft, non-tender and non-distended. No palpable masses. EXTREMITIES: No edema. Non-tender. SKIN: No rashes or lesions. Warm. NEUROLOGIC: No focal neurological deficits. CN II-XII grossly intact, but not individually tested. PSYCHIATRIC: Cooperative. Appropriate mood and affect. Current Medications Medications (Trade) Dose Ordered Sig/Wong Route PRN Reason Start Time Stop Time Status Last Admin Dose Admin Acetaminophen (TYLenol 325MG TAB) 650 mg Q4H PRN PO MILD PAIN (1-3) 04/24/25 20:30 04/27/25 14:22 DC 04/24/25 23:43 650 MG Acetaminophen (TYLenol 325MG TAB) 650 mg Q6H PRN PO TEMPERATURE GREATER THAN 101.5 04/24/25 20:30 04/27/25 14:22 DC 04/25/25 15:54 650 MG Albuterol (DUOneb) 1 udvial [id number] IH 04/24/25 22:00 04/27/25 14:22 DC 04/27/25 10:15 1 UDVIAL Alprazolam (XANax 0.25MG) 0.25 mg DAILY PRN PO ANXIETY/AGITATION 04/25/25 09:30 04/27/25 14:22 DC 04/25/25 12:58 0.25 MG Citalopram Hydrobromide (CeleXA 20MG TAB) 10 mg DAILY PO 04/26/25 09:00 04/27/25 14:22 DC 04/27/25 09:40 10 MG Dextrose (D50w) 50 ml AD PRN IV HYPOGLYCEMIA PROTOCOL 04/24/25 20:30 04/27/25 14:22 DC Famotidine (Pepcid 20mg Tab) 20 mg Q48H PO 04/25/25 09:00 04/27/25 14:22 DC 04/27/25 09:40 20 MG Glucagon (Glucagon 1mg Kit) 1 mg AD PRN IM HYPOGLYCEMIA PROTOCOL 04/24/25 20:30 04/27/25 14:22 DC Guaifenesin/ Dextromethorphan (RobiTUSSin DM 200/20MG 10ML) 10 ml Q4H PRN PO COUGH 04/24/25 20:30 04/27/25 14:22 DC Heparin Sodium (Porcine) (HEParin 5,000 UNIT VIAL) 10,000 unit AD IRRIG 04/25/25 10:00 04/27/25 14:22 DC Hydralazine HCl (APRESOLine 20MG INJ) 10 mg Q6H PRN IV For:SBP above 160;DBP above 90 04/24/25 20:30 04/27/25 14:22 DC Insulin Glargine (LANtus 100 UNITS/ML 10 ML VIAL) 16 units HS SQ 04/25/25 21:00 04/27/25 14:22 DC 04/26/25 20:48 16 UNITS Insulin Human Regular (humuLIN R 100 UNIT/ML 3ML) INSULIN SLIDING SCAL... ACHS SQ 04/24/25 21:00 04/27/25 14:22 DC 04/25/25 20:37 2 UNIT Lactulose (Constulose 20gm/ 30ml Udcup) 20 gm BID PRN PO CONSTIPATION 04/24/25 20:30 04/27/25 14:22 DC Losartan Potassium (CozAAR 50 mg TAB) 50 mg BID PO 04/25/25 09:30 04/27/25 14:22 DC 04/27/25 09:40 50 MG Nitroglycerin (Nitrostat) 0.4 mg PROTOCOL PRN SL CHEST PAIN 04/24/25 20:30 04/27/25 14:22 DC Ondansetron HCl (zoFRAN 4MG INJ) 4 mg Q6H PRN IV NAUSEA/VOMITING 04/24/25 20:30 04/27/25 14:22 DC Pharmacy Profile Note (Pharmacy Communication) 1 each AD MISC 04/25/25 20:30 04/25/25 20:25 DC Piperacillin Sod/ Tazobactam Sod 50 ml @ 12.5 mls/hr Q12H IV 04/25/25 08:00 04/25/25 21:56 DC 04/25/25 12:40 12.5 MLS/HR Piperacillin Sod/ Tazobactam Sod 50 ml @ 12.5 mls/hr Q12H IV 04/26/25 02:00 04/27/25 14:22 DC 04/27/25 02:15 12.5 MLS/HR Sevelamer HCl (RENAgel 800 MG TAB) 800 mg TIDMEALS PO 04/25/25 12:00 04/27/25 14:22 DC 04/26/25 17:09 800 MG Sodium Chloride 1,000 ml @ 0 mls/hr ONCE IV 04/25/25 08:00 04/27/25 14:22 DC 04/25/25 08:44 333 MLS/HR Vancomycin HCl 250 ml @ 125 mls/hr ONCE IV 04/24/25 20:30 04/24/25 20:41 DC Vancomycin HCl (Vancomycin 750mg) 750 mg TTHSPHD IVPB 04/25/25 16:00 04/27/25 14:22 DC 04/25/25 15:55 750 MG Vancomycin HCl (Vancomycin Protocol) 1 each AD IV 04/24/25 21:00 04/27/25 14:22 DC Vitamin B Complex/ Vit C/Folic Acid (Nephrovite Tablet) 1 cap DAILY PO 04/26/25 09:00 04/27/25 14:22 DC 04/27/25 09:40 1 CAP LABORATORY: [ ] Hematology Labs: Test 04/27/25 04:24 Range/Units White Blood Count 5.7 4.8-10.8 K/uL Red Blood Count 4.21 4.00-5.50 MIL/uL Hemoglobin 13.1 12.0-16.0 g/dL Hematocrit 39.2 36-48 % Mean Corpuscular Volume 93.1 79-99 fL Mean Corpuscular Hemoglobin 31.1 27.0-33.0 pg Mean Corpuscular Hemoglobin Concent 33.4 32.0-36.0 g/dL Red Cell Distribution Width 15.6 H 11.0-15.5 % Platelet Count 103 L 130-400 K/uL Mean Platelet Volume 9.4 7.5-10.5 fL Nucleated Red Blood Cells 0.0 0.0-0.19 % Chemistry Labs: Test 04/27/25 11:12 04/27/25 04:24 04/26/25 04:25 Range/Units Whole Blood Glucose 95 70-110 MG/DL Sodium Level 133 L 136-145 mmol/L Potassium Level 4.8 3.5-5.1 mmol/L Chloride Level 94 L 101-111 mmol/L Carbon Dioxide Level 26 21-32 mmol/L Blood Urea Nitrogen 50 H 7-18 mg/dL Creatinine 6.9 H 0.5-1.0 mg/dL Glomerular Filtration Rate Calc 7 >90 mL/min Random Glucose 81 70-105 mg/dL Total Calcium 7.9 L 8.5-10.1 mg/dL Magnesium Level 2.40 1.80-2.40 mg/dL Total Bilirubin 1.6 H 0.2-1.0 mg/dL Aspartate Amino Transf (AST/SGOT) 22 10-37 U/L Alanine Aminotransferase (ALT/SGPT) 32 12-78 U/L Alkaline Phosphatase 220 H 50-136 U/L Total Protein 6.5 6.0-8.3 g/dL Albumin 3.2 L 3.5-5.0 g/dL Procalcitonin 0.34 0.05-0.5 ng/mL Phosphorus Level 7.4 H 2.5-4.9 mg/dL DIAGNOSTICS / RADIOLOGY: REASON: eval pneumonia / right effusion ORDERING PHYSICIAN: SHAMIKA D[address]ON [address] MACHINE RUNNER PROCEDURE: CXR1VW - CHEST 1VW Exam Type: CHEST 1VW Clinical Information: eval pneumonia / right effusion Comparison: None Findings: Pulmonary pattern is as before. No worrisome interval changes have taken place. Impression: Stable exam. DICTATED BY: FLAVIA ROGERS MD DATE: 04/26/25836 .REASON: acute chf ORDERING PHYSICIAN: PERI ARTHUR NETWORK ACCOUNT MANAGER PROCEDURE: ECHO CMP - ECHO 2-D COMPLETE APPROVED REPORT EXAM: Two-dimensional and M-mode echocardiogram with Doppler and color Doppler. INDICATION ICD: Acute congestive heart failure 2D Dimensions RVDd 5.7 cm LVEF(%) 57.0 (>50%) LVED Vol(simp.) 123.0 mL IVSd 1.0 (0.7-1.1cm) FS(%) 30 % LVES Vol(simp.) 56.0 mL LVDd 5.1 (3.8-5.6cm) LA (2D) 4.9 (1.6-4.0cm) LVEF(%, simp.) 55 % PWd 1.0 (0.7-1.1cm) Ao Root(2D) 3.1 (2.0-3.7cm) LA ESV INDEX (BP) 38.42 mL/m2 IVSs 1.4 cm LVOT diam 2.4 (1.8-2.4cm) LVDs 3.6 (2.5-4.0cm) IVC diam 2.6 cm PWs 1.4 cm Deformation Strain Apical 4 -16.5 % Apical 2 -18.8 % Apical 3 -14.1 % Global Strain -16.5 % M-Mode Dimensions EPSS 0.7 cm LA (MM) 4.4 (1.6-4.0cm) Ao Root(MM) 2.8 (2.0-3.7cm) Aortic Valve AoV Vmax 1.5 m/s Ao Peak GR 0.0 mmHg LVOT Vmax 1.1 m/s AoV VTI 0.3 m Ao Mean GR 6.0 mmHg LVOT VTI 0.21 m HEATHER (VMAX) 3.14 cm2 HEATHER (VTI) 3.4 cm2 Mitral Valve MV E Vmax 75.4 cm/s DECEL Time 170 ms MV A Vmax 84.7 cm/s P 1/2 T 41 ms E/A ratio 0.9 MVA (PHT) 5.3 cm2 TDI E/E' Medial 14.3 E/E' Lateral 7.6 Medial E' Peak V 5.29 cm/s Lateral E' Peak V 9.90 cm/s Pulmonary Valve PV Vmax 1.0 m/s PV VTI 0.20 m PV Mean GR 2.4 mmHg PV Peak GR 4.1 mmHg Tricuspid Valve TR Vmax 3.0 m/s RAP (EST) 15 mmHg RVSP 52.0 mmHg TR Peak GR 37.0 mmHg Left Ventricle Normal size D shaped left ventricle. GLS -16.0%. Septal flattening with dyskinetic septal wall motin and normal thickening, consistent with RV volume overload. There is normal left ventricular wall thickness. LVEF is 55-60%. 3D volume EF 54%. Left ventricular filling pattern is normal for age. Right Ventricle The right ventricle is severely dilated. RV GLS 19.0%. The right ventricular systolic function is normal. Atria The left atrium is mildly dilated. The right atrium is severely dilated. 177mL in volume. Aortic Valve The aortic valve is trileaflet normal in structure. Trace of aortic regurgitation is present. There is no aortic valvular stenosis. Mitral Valve The mitral valve is normal in structure. There is trace of mitral valve regurgitation noted. There is no mitral valve stenosis. Tricuspid Valve The tricuspid valve is normal in structure. There is moderate tricuspid valve regurgitation noted. RVSP 52mmHg. Pulmonic Valve The pulmonary valve is normal in structure. There is mild pulmonic valvular regurgitation. Great Vessels The aortic root is normal in size. IVC is dilated and collapses <50% with inspiration. Pericardium There is trivial pericardial effusion. Other Information Quality : Adequate Conclusion LVEF is 55-60%. 3D volume EF 54%. GLS -16.0%. Septal flattening with dyskinetic septal wall motin and normal thickening, consistent with RV volume overload. The right ventricle is severely dilated. RV GLS 19.0%. The left atrium is mildly dilated. The right atrium is severely dilated. 177mL in volume. Trace of aortic regurgitation is present. There is trace of mitral valve regurgitation noted. There is moderate tricuspid valve regurgitation noted. RVSP 52mmHg. DICTATED BY: HARSH DUENAS MD DATE: 04/25/25 1438 REASON: chronic cough ORDERING PHYSICIAN: YUE MANRIQUE MD PROCEDURE: CXR1VW - CHEST 1VW Exam Type: CHEST 1VW Clinical Information: chronic cough Comparison: None Findings and impression: Cardiomegaly. Right moderate pleural effusion. Possibility of underlying right pneumonia cannot be excluded. Right permacath in place. No pneumothorax. Clear left lung. Follow-up is advised. DICTATED BY: FLAVIA ROGERS MD DATE: 04/24/25 3699 ASSESSMENT: Possible right lower lobe pneumonia POA Chronic respiratory failure on home O2 dependence POA Hypertension POA Acute thrombocytopenia POA Hyperkalemia POA End-stage renal disease on hemodialysis POA Uncontrolled diabetes POA Acute CHF POA Dysphagia POA PLAN: Labs and Diagnostics/ Radiology personally reviewed and interpreted by myself and supervising physician We have reviewed dialysis and external records in detail Pending discharge disposition later today Continue dialysis schedule Sunday 1.5 L fluid restriction Continue with frequent monitoring of renal function, anemia, and electrolytes Monitor blood pressure adjust medication doses as needed Maintain normotensive state Strict intake, output, and daily weight should be monitored Please renally adjust medications. Avoid nephrotoxics and nonsteroidal drugs. We will continue to monitor the patient closely We have discussed with the other team physicians in detail about the care plan ATTESTATION BY PHYSICIAN I have seen and examined the patient. I reviewed the documentation, medical decision making, and treatment plan as noted by the mid-level provider above. I agree with the findings and plan of care. JANIS DARBY MD, [facility] Apr 27, 2025 14:41
--- NOTE | 2025-04-27 15:02 | NUR ---
DISCHARGE DISCHARGE INSTRUCTIONS GIVEN TO PATIENT PATIENT AWARE OF FOLLOW UP APPOINTMENT ALL QUESTIONS ANSWERED PRIOR TO DISCHARGE
== END 2025-04-27 14:15 | disposition home or self-care (01) | DRG 640 ==
LOC: EDH 13:16 → EDHIP 20:01 → 2DH 04-25 00:30 → 3AH 04-25 18:35
PROVIDERS: ADMIT Internal Medicine; ATTEND Internal Medicine
PROC: 05HY33Z Insertion of Infusion Device into Upper Vein, Percutaneous Approach (ICD-10-PCS; 2025-04-24)
PROC: 5A1D70Z Performance of Urinary Filtration, Intermittent, Less than 6 Hours Per Day (ICD-10-PCS; principal; 2025-04-25)
DX: E87.70 Fluid overload, unspecified (principal); J18.9 Pneumonia, unspecified organism; J96.21 Acute and chronic respiratory failure with hypoxia; N18.6 End stage renal disease; I13.2 Hypertensive heart and chronic kidney disease with heart failure and with stage 5 chronic kidney disease, or end stage renal disease; J44.0 Chronic obstructive pulmonary disease with (acute) lower respiratory infection; D69.6 Thrombocytopenia, unspecified; E11.65 Type 2 diabetes mellitus with hyperglycemia; E87.5 Hyperkalemia; F32.A Depression, unspecified; F41.9 Anxiety disorder, unspecified; E11.22 Type 2 diabetes mellitus with diabetic chronic kidney disease; E11.319 Type 2 diabetes mellitus with unspecified diabetic retinopathy without macular edema; E78.5 Hyperlipidemia, unspecified; R13.10 Dysphagia, unspecified; Z82.49 Family history of ischemic heart disease and other diseases of the circulatory system; Z91.158 Patient's noncompliance with renal dialysis for other reason; Z99.2 Dependence on renal dialysis; Z99.81 Dependence on supplemental oxygen; Z83.3 Family history of diabetes mellitus; Z90.710 Acquired absence of both cervix and uterus
CPT/HCPCS: 36415; 36556; 71045; 76376; 80048; 80053; 82550; 82948; 83735; 83880; 84100; 84132; 84145; 84484; 85025; 85027; 85610; 85730; 86704; 86706; 87340; 87426; 87804; 87880; 90935; 92610; 93005; 93306; 93356; 94640; 94664; 96372; 99285; C1894; G0378; J1815; J2270; J2543; J2919; J3370

== ENCOUNTER 2025-05-29 09:00 | Day surgery (SDC) | payer MEDICARE, MEDICAID ==
[2025-05-26 15:32] LABS: IMMATURE GRANULOCYTE ABSOLUTE 0.01 K/uL (0-1); NUCLEATED RED BLOOD CELLS 0.0 % (0.0-0.19); PLATELET COUNT (AUTO) 124 K/uL (130-400); RED BLOOD CELL COUNT(AUTO) 4.45 MIL/uL (4.00-5.50); RED CELL DISTRIBUTION WIDTH 17.1 % (11.0-15.5); WHITE BLOOD COUNT (AUTO) 4.6 K/uL (4.8-10.8)
[2025-05-26 15:35] VITALS: BP 123/70; PULSE 79; RESP 17; TEMP 97.8
[2025-05-26 15:40] LABS: INR 1.15 (0.85-1.15)
[2025-05-26 15:54] LABS: ASPARTATE AMINOTRANSFERASE 22.0 U/L (10-37); CREATININE 4.2 mg/dL (0.5-1.0); GLOMERULAR FILTR. RATE CALC 12.0 mL/min (>90); GLUCOSE,RANDOM 148.0 mg/dL (70-105); SODIUM SERUM 137.0 mmol/L (136-145); TOTAL PROTEIN, SERUM 6.6 g/dL (6.0-8.3); UREA NITROGEN, BLOOD 18.0 mg/dL (7-18)
[2025-05-29] VITALS (17 sets, daily range): BP systolic 116–157; BP diastolic 61–86; PULSE 81–87; RESP 14–19; TEMP 97.2–98
[~2025-05-29] VITALS: Ht 160 cm; Wt 85.8 kg
[~2025-05-29 09:00] MED LIST changes: +MIRT-93 PO; -MIRT45TA83 PO
[2025-05-29 10:25] LABS: CREATININE 4.3 mg/dL (0.5-1.0); GLOMERULAR FILTR. RATE CALC 12.0 mL/min (>90); GLUCOSE,RANDOM 157.0 mg/dL (70-105); SODIUM SERUM 135.0 mmol/L (136-145); UREA NITROGEN, BLOOD 25.0 mg/dL (7-18)
[2025-05-29] MEDS: 0.9% NACL 500ML IV.SOLN 500 ML IV ONE (10:42)
[2025-05-29] MEDS ORDERED: HEParin-NS 1,000 UNIT/500 ML 500 ML IV ONE ×2 (12:31→13:24)
[2025-05-29] MEDS ORDERED: NEOSTIGMINE METHYLSULFATE 1MG/ML IV ONE (13:05)
[2025-05-29] MEDS ORDERED: GLYCOPYRROLATE 0.2 MG/ML 5 ML VIAL ONE (13:05)
[2025-05-29] MEDS ORDERED: MIDAZOLAM HCL 1 MG/ML 2ML VIAL ONE (13:06)
[2025-05-29] MEDS: MIDAZOLAM HCL 1 MG/ML 2ML VIAL ONE (17:47)
--- NOTE | 2025-05-29 17:56 | OP ---
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 Once general endotracheal anesthesia is achieved patient's left upper extremity is prepped and draped in sterile fashion. I then proceeded to create a transverse incision over top of the antecubital fossa at the level of the arteriovenous anastomosis and proceeded to dissect around the proximal portion of the fistula just distal to the anastomosis and obtained proximal control. I then proceeded to create a longitudinal incision with a 15 blade at the upper arm at the distal fistula past the aneurysms. Proceeded to dissect through the skin and subcutaneous tissue and obtain distal control. Heparin 5000 units were given. Once we had proximal and distal control I then proceeded to use the Teller 35 vascular load to divide the fistula proximally and distally. I then created a longitudinal incision over top of the aneurysms and then proceeded to use Bovie cautery to excise the aneurysm completely clipping it every branch from any collaterals that we identified. We then proceeded to obtain hemostasis at the surgical bed. I then proceeded to close his large incision where the aneurysm used to lay using 3-0 Vicryl running fashion. And leaving just the 2 incisions where we had exposure of the inflow and the outflow. I then proceeded to use a curved C tunneler to tunnel from the proximal to the distal incision laterally from our previous surgical bed and then through here proceeded to tunnel and 8 mm straight graft making sure that the dotted line stayed up. I then proceeded to excise the staple lines. And created into an a nastomosis on the arterial side and to end with 6-0 Prolene and on the venous side as well and to end with 6-0 Prolene as well. Once both anastomosis were created we then confirmed that there was a good thrill throughout the graft. No bleeding was seen. All incisions were closed in 2 layers. With 3-0 Vicryl and then 4-0 Monocryl. The incision at the antecubital fossa on the upper arm we applied Dermabond over top. In the longitudinal incision over top of where the aneurysms used to be we applied a dermabond over top. Patient tolerated the procedure well all counts were correct x2 at the end of the procedure. HAMMAD HODGSON MD May 29, 2025 17:56
--- NOTE | 2025-05-29 19:52 | NUR ---
Full and complete discharge instructions given to Patient and Family both verbally and in writing. Explained Surgical procedure precautions and follow up. LUE incision and Graft site clean dry and intact. No evidence of bleeding, bruising or hematoma. Neurovascularly intact All questions answered. PIV removed with catheter tip intact. Family at bedside appearing supportive. W/C to POV with Family to home
== END 2025-05-29 19:54 | disposition home or self-care (01) ==
LOC: DAH 09:00
PROVIDERS: ATTEND Student in an Organized Health Care Education/Training Program
DX: I12.0 Hypertensive chronic kidney disease with stage 5 chronic kidney disease or end stage renal disease (principal); E11.22 Type 2 diabetes mellitus with diabetic chronic kidney disease; N18.6 End stage renal disease; I72.1 Aneurysm of artery of upper extremity; J44.89 Other specified chronic obstructive pulmonary disease; M06.9 Rheumatoid arthritis, unspecified; Z99.2 Dependence on renal dialysis; Z90.710 Acquired absence of both cervix and uterus; Z79.899 Other long term (current) drug therapy; Z98.891 History of uterine scar from previous surgery; Z98.41 Cataract extraction status, right eye; Z98.42 Cataract extraction status, left eye; Z98.890 Other specified postprocedural states; Z82.49 Family history of ischemic heart disease and other diseases of the circulatory system; Z83.6 Family history of other diseases of the respiratory system; Z83.3 Family history of diabetes mellitus; Z84.89 Family history of other specified conditions
CPT/HCPCS: 80053; 85025; 85610; 85730; 86850; 86900; 86901; 36415 ×2; 36832; 80048; 82948; 88304; A6260; A4663; C1768; J7040; J3010; J1100; J2597; J3490 ×2; J2250 ×2; J2704; J2405; J2710; J1644 ×2; J0690 ×2; A4649 ×4; C1713 ×2; A4215; A4222; A4221; A4216; A4223 ×2; A4600

== ENCOUNTER → 2025-07-17 | Outpatient (CLI) | payer MEDICARE, MEDICAID ==
[~2025-07-17] MED LIST changes: +IOHEXOL-350 75 ML VIAL IV ONE
--- NOTE | 2025-07-17 19:49 | HMCIMG ---
EXAM: CT Abdomen and Pelvis with and without IV contrast CLINICAL HISTORY: Other specified soft tissue disorders TECHNIQUE: Axial computed tomography images of the abdomen and pelvis with and without intravenous contrast. CONTRAST: with and without intravenous contrast. COMPARISON: 12/20/23 FINDINGS: LUNG BASES: Right side moderate pleural effusion with underlying subsegmental passive lung collapse and a few atelectatic bands involving the right lower lobe. Mild cardiomegaly LIVER: The liver is enlarged; the right hepatic lobe measures up to 19.5 cm. Decreased attenuation of the hepatic parenchyma reflects hepatic steatosis. There is no focal hepatic abnormality or intrahepatic biliary ductal dilatation. IVC measures approximately 27 mm and appears dilated - Suggestive of underlying congestive changes. GALLBLADDER AND BILE DUCTS: The gallbladder is surgically removed. PANCREAS: Unremarkable. SPLEEN: Unremarkable. ADRENAL GLANDS: Unremarkable. KIDNEYS, URETERS, AND BLADDER: The kidneys appear within normal limits. There is no hydronephrosis or hydroureter. No urinary calculi are seen. STOMACH AND BOWEL: Unremarkable appearance of the stomach and bowel. No evidence of bowel obstruction. No evidence suggesting enteritis or colitis. PERITONEUM: Mild free fluid in the peritoneal cavity mainly adjacent to right lobe of liver. No free fluid. No free air. LYMPH NODES: No lymphadenopathy is evident. REPRODUCTIVE: Unremarkable as visualized. VASCULATURE: Atherosclerotic changes involving visualized arterial vasculature in the form of fibrocalcified plaque No evidence of abdominal aortic aneurysm. BONES: Osseous degenerative changes No aggressive appearing osseous lesion. No acute osseous pathology is evident. Generalised anasarca.IMPRESSION: 1. Right moderate pleural effusion with subsegmental passive lung collapse and atelectatic bands in the right lower lobe. 2. Hepatomegaly with hepatic steatosis. 3. Mild cardiomegaly. 4. Dilated IVC (27 mm), suggestive of congestive changes. 5. Mild peritoneal free fluid adjacent to right lobe of liver. 6. Generalized anasarca. /[place]
== END | disposition home or self-care (01) ==
LOC: RAH 07:35
PROVIDERS: ATTEND Internal Medicine
DX: K76.0 Fatty (change of) liver, not elsewhere classified (principal); J90 Pleural effusion, not elsewhere classified; I51.7 Cardiomegaly; J98.19 Other pulmonary collapse; I25.10 Atherosclerotic heart disease of native coronary artery without angina pectoris; M79.89 Other specified soft tissue disorders; Z90.49 Acquired absence of other specified parts of digestive tract
CPT/HCPCS: 74178; Q9967